=== PATIENT | male | born 1940 | race Caucasian/White ===

== ENCOUNTER 2024-09-12 10:28 | Inpatient (IN) ==
--- NOTE | 2024-09-12 10:46 | Emergency Department Note ---
Impression & Plan Hyperkalemia, Mucosal abnormality of duodenum, Abnormal CT scan, small bowel, GI bleeding, Hyperglycemia ED Provider Note NAME: VINI MENDOZA78Yodit JAMES AGE: 84 SEX: M : 1940 ARRIVES VIA: Walk-In INFORMANT: Patient, EMS report ED PROVIDER(S): Andrae Gou MD CHIEF COMPLAINT: GI bleeding, dizziness MEDICAL DECISION MAKING: Patient presents with the above. IV was established x 2 [id number] type and screen and show IV fluids ordered. Protonix bolus and drip ordered. IV fluids ordered. Initial [id number] did show a potassium greater than 6. Pending formal from the lab. Patient's blood work does show a white count of 17. Initial hemoglobin of 12.4. Platelet count is unremarkable. Patient's kidney function unremarkable prerenal azotemia noted which may be consistent with GI bleeding. Given the patient's elevated white count blood cultures and lactate were ordered along with empiric Zosyn in light of the patient's abdominal pain. Patient's formal potassium is 6.8. The patient did receive albuterol treatments insulin and D50 as well as calcium. The patient is on lisinopril which could be contributory to the patient's hyperkalemia. The patient denies taking any potassium supplements and no increase in potatoes or bananas. I did speak with Dr. Packer who did recommend conservative management care. The patient was also ordered additional IV fluids. COVID flu and RSV negative. The patient CT abdomen pelvis does show concern for duodenitis. I did speak with the on-call gastroenterology service Dr. Weber and the patient was seen by GI. I also did speak with the on-call medicine service. Fox Elliott PA-C and the patient was admitted to the medicine service. Repeat potassium of 5.1. Critical Care: I have personally spent 53 minutes of critical care time in direct management of this patient. This includes bedside care, interpretation of diagnostic studies, and testing, discussion with consultants, patient, and family members, and other require inpatient management activities. This 53 minutes is in excess of all separately billable procedures. Discussion w/ other healthcare providers: Dr. Barbosa nephrology Dr. Erickson gastroenterology Lurdes Elliott PA-C and Dr. Abdoulaye Zimmerman inpatient service Prior /Outside records reviewed: Review the patient's medication list no aspirin or other antiplatelets or anticoagulants. Patient is on Flomax albuterol atorvastatin lisinopril and dutasteride. Review of the patient's prior past medical history does show history of peptic ulcer disease. Review of the patient's med list does not show any evidence of a PPI. Differential diagnosis: Diverticulitis, AVM, coagulopathy, colitis, inflammatory bowel disease, malignancy, esophagitis, peptic ulcer disease, variceal bleed, gastritis, fissure, hemorrhoids, as well as other pathologies. Diagnostics, as interpreted by me: ECG: Normal sinus rhythm, rate of 80, wide QRS with right bundle branch block pattern, left axis deviation. No ST elevations. Cardiac monitoring: An order was placed for continuous cardiac monitoring. The monitor shows a rate of 82 with sinus rhythm. Patient was placed on pulse oximetry Medical decision rules: None Imaging studies: I informally interpreted the patient's CT abdomen pelvis does not show evidence of obvious obstruction with formal report to follow. HPI: Patient presents due to concern for GI bleeding. The patient reportedly began having some symptoms yesterday. Patient reportedly has had bright red blood as well as clots noted. Patient reports prior history of a stomach ulcer and believes he may be taking medication for it. Patient denies any chest pain or shortness of breath but does feel lightheaded/dizzy. No reported syncope. He does not take any reported antiplatelets or blood thinners. Patient does have a chronic indwelling Mora catheter. No reported abdominal pain. Patient reportedly had low blood pressure and elevated heart rate at the facility and upon presentation here does have low blood pressure although normal cardiac PAST MEDICAL HISTORY: See Below PAST SURGICAL HISTORY: See Below SOCIAL HISTORY: See Below HOME MEDICATIONS: See Below ALLERGIES: See Below VITALS: See Below PHYSICAL EXAMINATION: GENERAL: Mildly ill and pale in appearance. Wearing glasses. EYE EXAM: Normal conjunctiva. PERRL, no anisocoria and EOM's grossly intact w/o pain. OROPHARYNX: Moist mucus membranes, grossly normal dentition. NECK: Trachea midline, no stridor. Supple, no nuchal rigidity, no adenopathy, non-tender. No signs of meningismus. FROM of the neck with good chin to chest and neck extension. LUNGS: Clear to auscultation. Normal chest wall mechanics. HEART: NSR, no MRG. ABDOMEN: Abdomen soft, non-tender, no masses, no rebound or guarding. BACK: No CVA TTP. SKIN: No rashes and no bruising. : Mora catheter in place draining straw-colored urine. UPPER EXTREMITIES: Upper extremities are grossly normal. LOWER EXTREMITIES: Grossly normal, no edema. NEURO EXAM: A&O x3, cranial nerves II-XII grossly intact, normal speech, moves all 4 extremities. Past Med/Surg History Problem List (Updated 09/12/24 @ 15:57 by Andrae Guo MD) Hyperglycemia (Acute) Hyperkalemia (Acute) Abdominal pain GI bleeding (Acute) Abnormal CT scan, small bowel (Acute) Mucosal abnormality of duodenum (Acute) Rectal bleeding Hydronephrosis Urinary retention Medical History Stomach ulcer Diabetes Surgical History No pertinent past surgical history Family History Other No significant family history Social History Smoking Status: Never smoker Hx Alcohol Use: No Preferred Language: Georgian Current Living Situation Comment: [facility] Feels Safe at Home: Yes Allergies Allergies Allergy/AdvReac Type Severity Reaction Status Date / Time No Known Allergies Allergy Unverified 05/22/24 07:52 Home Meds Home Medications Medication Instructions Recorded Confirmed atorvastatin 40 mg tablet 40 mg PO HS 12/06/18 09/12/24 tamsulosin 0.4 mg capsule 0.4 mg PO HS 12/06/18 09/12/24 lisinopril 20 mg tablet 20 mg PO DAILY 09/12/24 09/12/24 Previous Rx's Medication Instructions Recorded dutasteride 0.5 mg capsule 0.5 mg PO DAILY #90 caps 07/08/23 (Avodart) Results & Data (ED) Vital Signs Vital Signs - 24 hr 09/12/24 10:34 09/12/24 10:49 09/12/24 10:54 Pulse Rate 86 Pulse Rate [Apical] 98 H Pulse Rate from SpO2 Sensor Pulse Rhythm [Apical] Pulse Strength [Apical] Respiratory Rate 19 18 Respiratory Effort / Characteristics Non-Labored Spontaneous Non-Labored Spontaneous Respiratory Depth Normal Normal Respiratory Pattern Regular Blood Pressure 71/41 L Blood Pressure [Right Arm] 77/55 L Blood Pressure Mean 51 Blood Pressure Mean [Right Arm] 62 Blood Pressure Position Sitting Blood Pressure Position [Right Arm] Pulse Oximetry 98 95 95 Oxygen Delivery Method Room Air Room Air Room Air Sepsis Recent Fever Within 48 Hours No Sepsis New/Unexplained Change in Mental Status No Sepsis Action Taken by Nursing No Action Required 09/12/24 10:55 09/12/24 11:00 09/12/24 11:06 Pulse Rate 85 Pulse Rate [Apical] 85 Pulse Rate from SpO2 Sensor 87 Pulse Rhythm [Apical] Pulse Strength [Apical] Respiratory Rate 18 23 Respiratory Effort / Characteristics Non-Labored Spontaneous Respiratory Depth Normal Respiratory Pattern Regular Blood Pressure 114/71 Blood Pressure [Right Arm] 80/56 L Blood Pressure Mean 82 Blood Pressure Mean [Right Arm] 64 Blood Pressure Position Blood Pressure Position [Right Arm] Pulse Oximetry 99 97 Oxygen Delivery Method Room Air Sepsis Recent Fever Within 48 Hours Sepsis New/Unexplained Change in Mental Status Sepsis Action Taken by Nursing 09/12/24 11:08 09/12/24 11:19 09/12/24 11:24 Pulse Rate 83 85 Pulse Rate [Apical] 88 Pulse Rate from SpO2 Sensor 86 Pulse Rhythm [Apical] Regular Pulse Strength [Apical] Normal Respiratory Rate 22 27 H Respiratory Effort / Characteristics Non-Labored Spontaneous Respiratory Depth Normal Respiratory Pattern Regular Blood Pressure Blood Pressure [Right Arm] 123/80 Blood Pressure Mean Blood Pressure Mean [Right Arm] 94 Blood Pressure Position Blood Pressure Position [Right Arm] Semi-fowlers Pulse Oximetry 97 98 Oxygen Delivery Method Room Air Sepsis Recent Fever Within 48 Hours Sepsis New/Unexplained Change in Mental Status Sepsis Action Taken by Nursing 09/12/24 11:30 09/12/24 11:36 09/12/24 11:50 Pulse Rate 85 Pulse Rate [Apical] Pulse Rate from SpO2 Sensor 84 Pulse Rhythm [Apical] Pulse Strength [Apical] Respiratory Rate 26 H Respiratory Effort / Characteristics Respiratory Depth Respiratory Pattern Blood Pressure 126/75 125/76 Blood Pressure [Right Arm] Blood Pressure Mean 91 91 Blood Pressure Mean [Right Arm] Blood Pressure Position Blood Pressure Position [Right Arm] Pulse Oximetry 99 Oxygen Delivery Method Sepsis Recent Fever Within 48 Hours Sepsis New/Unexplained Change in Mental Status Sepsis Action Taken by Nursing 09/12/24 12:00 09/12/24 12:00 09/12/24 12:00 Pulse Rate Pulse Rate [Apical] Pulse Rate from SpO2 Sensor Pulse Rhythm [Apical] Pulse Strength [Apical] Respiratory Rate Respiratory Effort / Characteristics Respiratory Depth Respiratory Pattern Blood Pressure 148/74 H 148/74 H 148/74 H Blood Pressure [Right Arm] Blood Pressure Mean 85 85 85 Blood Pressure Mean [Right Arm] Blood Pressure Position Blood Pressure Position [Right Arm] Pulse Oximetry Oxygen Delivery Method Sepsis Recent Fever Within 48 Hours Sepsis New/Unexplained Change in Mental Status Sepsis Action Taken by Nursing 09/12/24 12:14 09/12/24 12:15 09/12/24 12:24 Pulse Rate 88 96 H Pulse Rate [Apical] Pulse Rate from SpO2 Sensor 86 96 H Pulse Rhythm [Apical] Pulse Strength [Apical] Respiratory Rate 21 19 Respiratory Effort / Characteristics Respiratory Depth Respiratory Pattern Blood Pressure 135/78 Blood Pressure [Right Arm] Blood Pressure Mean 94 Blood Pressure Mean [Right Arm] Blood Pressure Position Blood Pressure Position [Right Arm] Pulse Oximetry 100 100 Oxygen Delivery Method Sepsis Recent Fever Within 48 Hours Sepsis New/Unexplained Change in Mental Status Sepsis Action Taken by Nursing 09/12/24 12:30 09/12/24 12:30 09/12/24 12:30 Pulse Rate 107 H Pulse Rate [Apical] Pulse Rate from SpO2 Sensor 108 H Pulse Rhythm [Apical] Pulse Strength [Apical] Respiratory Rate 25 H Respiratory Effort / Characteristics Respiratory Depth Respiratory Pattern Blood Pressure 133/77 133/77 Blood Pressure [Right Arm] Blood Pressure Mean 91 91 Blood Pressure Mean [Right Arm] Blood Pressure Position Blood Pressure Position [Right Arm] Pulse Oximetry 100 Oxygen Delivery Method Sepsis Recent Fever Within 48 Hours Sepsis New/Unexplained Change in Mental Status Sepsis Action Taken by Care Home Medications Current Medication List: was personally reviewed by me Laboratory Data Attestation: I reviewed the patient's lab results. 09/12/24 14:45 09/12/24 12:23 Lab Results 09/12/24 09/12/24 09/12/24 Range/Units 10:45 10:49 12:23 WBC 17.85 H (4.8-10.8) K/ul RBC 4.14 L (4.70-6.10) M/uL Hgb 12.4 L (14.0-18.0) g/dl POC Hgb 12.6 L (14.0-18.0) g/dl Hct 37.4 L (42.0-52.0) % POC Hct 37 L (42-52) % MCV 90.3 (80.0-100.0) fL MCH 30.0 (25.0-34.0) pg MCHC 33.2 (32.0-36.0) g/dL RDW Std Deviation 48.2 H (36.4-46.3) fL RDW Coeff of Star 14.6 H (11.5-14.5) % Plt Count 215 (130-400) K/uL MPV 11.8 (9.4-12.4) fL Immature Gran % (Auto) 0.5 % Neut % (Auto) 73.3 % Lymph % (Auto) 18.4 % [place] % (Auto) 6.8 % Eos % (Auto) 0.4 % Baso % (Auto) 0.6 % Neut # (Auto) 13.08 H (1.40-6.50) K/uL Lymph # (Auto) 3.28 (1.20-3.40) K/uL [place] # (Auto) 1.22 H (0.11-0.59) K/uL Eos # (Auto) 0.08 (0.00-0.50) K/uL Baso # (Auto) 0.10 (0.00-0.20) K/uL Immature Gran # (Auto) 0.09 (0.01-0.20) K/uL PT 11.3 (9.0-12.0) Seconds INR 1.0 (0.9-1.1) APTT 22 (21-31) Seconds PTT Ratio 0.8 POC Sodium 136 (135-144) mmol/L Sodium 135 L 136 (136-145) mmol/L POC Potassium 6.7 H* (3.3-5.0) mmol/L Potassium 6.8 H* 5.1 D (3.5-5.1) mmol/L POC Chloride 109 (101-112) mmol/L Chloride 108 H 109 H (98-107) mmol/L Carbon Dioxide 22 25 (21-32) mmol/L POC Total CO2 19 L (24-31) mmol/L Anion Gap 5 2 L (3-11) POC Anion Gap 15.0 L (16-25) mmol/L POC BUN 43 H (7-18) mg/dl BUN 52 H 46 H (6-23) mg/dl Creatinine 1.15 1.09 (0.6-1.4) mg/dl POC Creatinine 1.2 (0.6-1.3) mg/dl Est Cr Clr Drug Dosing 41.6 43.9 ml/min eGFR 61.98 66.10 BUN/Creatinine Ratio 45.2 H 42.2 H (10-20) Glucose 317 H* 370 H* (70-99(Fasting)) mg/dl POC Glucose (other) 302 H (70-99) mg/dl Estimat Average Glucose 192 mg/dl Hemoglobin A1c 8.3 H (4.5-5.6) % Lactate 2.2 H* (0.4-2.0) mmol/L Calcium 8.5 L 8.1 L (8.6-10.3) mg/dl POC Ioniz Calcium Nicole 1.15 (1.12-1.32) mmol/l Total Bilirubin 0.5 (0.2-1.0) mg/dl AST 21 (13-39) U/L ALT 20 (7-52) U/L Alkaline Phosphatase 82 (34-104) U/L Total Creatine Kinase 34 (30-223) U/L Total Protein 5.8 L (6.0-8.3) gm/dl Albumin 3.3 L (3.4-5.0) gm/dl Globulin 2.5 (2.5-4.0) gm/dl Albumin/Globulin Ratio 1.3 (0.9-2) Blood Type A Positive Antibody Screen NEGATIVE Administered Medications Pantoprazole Sodium 40 mg/ (Dextrose) 100 mls @ 20 mls/hr IV Q5H FATIMAH Stop: 10/12/24 10:59 Last Admin: 09/12/24 12:12 Dose: 8 mg/hr, 20 mls/hr Documented By: ANUSHKA Sodium Chloride (Nss) 1,000 mls @ 100 mls/hr IV .Q10H FATIMAH Stop: 09/13/24 13:14 Last Admin: 09/12/24 13:54 Dose: 100 mls/hr Documented By: ANUSHKA Discontinued Medications Albuterol (Albuterol 0.5% Neb Soln 2.5 Mg/0.5 Ml Vial) 10 mg NEB NOW STA Stop: 09/12/24 11:19 Last Admin: 09/12/24 11:55 Dose: 10 mg Documented By: ANUSHKA Dextrose (Dextrose 50% 50 Ml Syringe) 50 ml IV NOW STA Stop: 09/12/24 11:19 Last Admin: 09/12/24 11:52 Dose: 50 ml Documented By: ANUSHKA Pantoprazole Sodium 80 mg/ (Dextrose) 120 mls @ 480 mls/hr IV NOW ONE Stop: 09/12/24 10:53 Last Infusion: 09/12/24 12:45 Dose: Infused Documented By: Admin: 09/12/24 12:29 Dose: 480 mls/hr Documented By: ANUSHKA Sodium Chloride (Nss) 1,000 mls @ 999 mls/hr IV .Q1H1M ONE Stop: 09/12/24 11:39 Last Infusion: 09/12/24 12:32 Dose: Infused Documented By: Admin: 09/12/24 10:49 Dose: 999 mls/hr Documented By: SAWYER Calcium Gluconate () 1,000 mg in 60 mls @ 240 mls/hr IV NOW STA Stop: 09/12/24 11:32 Last Infusion: 09/12/24 12:27 Dose: Infused Documented By: Admin: 09/12/24 11:52 Dose: 240 mls/hr Documented By: ANUSHKA Insulin Human Regular 10 units (/ Syringe) 9.9 mls @ 3 mls/sec IV ONE STA Stop: 09/12/24 11:19 Last Admin: 09/12/24 11:52 Dose: 3 mls/sec Documented By: ANUSHKA Co-signed By: SIS Piperacillin Sod/Tazobactam Sod (Zosyn) 4.5 gm in 100 mls @ 200 mls/hr IV NOW ONE; Protocol Stop: 09/12/24 11:47 Last Infusion: 09/12/24 12:46 Dose: Infused Documented By: Admin: 09/12/24 12:24 Dose: 200 mls/hr Documented By: ANUSHKA Sodium Chloride (Nss) 1,000 mls @ 999 mls/hr IV .Q1H1M ONE Stop: 09/12/24 13:03 Last Infusion: 09/12/24 14:08 Dose: Infused Documented By: Admin: 09/12/24 12:32 Dose: 999 mls/hr Documented By: ANUSHKA Sodium Chloride (Nss) 500 mls @ 999 mls/hr IV .Q31M ONE Stop: 09/12/24 15:00 Last Admin: 09/12/24 14:45 Dose: 999 mls/hr Documented By: BRIAN Ioversol (Optiray 320 100ml) 94 ml IV ONCE ONE Stop: 09/12/24 11:44 Last Admin: 09/12/24 11:43 Dose: 94 ml Documented By: JL Pantoprazole Sodium (Pantoprazole Bolus/Drip) 1 each IV NOW STA Stop: 09/12/24 10:40 Last Admin: 09/12/24 14:14 Dose: Not Given Documented By: BRIAN Imaging Data Radiologist's Impression: Abdomen/Pelvis CT 09/12/24 11:20 CT abd pelvis IV con only CLINICAL HISTORY: ab pain, WBC 17 TECHNIQUE: Helical axial images of the abdomen and pelvis were obtained and displayed. Automated dose lowering techniques and/or adjustment according to patient size were utilized for this exam. This exam was performed with intravenous contrast. CT DOSE: 804.66 mGy.cm COMPARISON: Comparison is made to CT abdomen pelvis 06/22/2023 FINDINGS: Lower chest: Bibasilar atelectasis versus scarring is seen. Liver: Unremarkable. No focal lesions are seen. Gallbladder and biliary tree: No calcified gallstones. Normal caliber wall. No intra- or extrahepatic biliary ductal dilation. Pancreas: A 21 mm pancreatic cystic lesion is seen. Fatty replacement is noted. Spleen: Splenomegaly is seen with a few splenule is noted. Adrenals: Unremarkable. Kidneys and ureters: Numerous simple appearing renal cysts are seen, one with a calcification. Bladder: Mora catheter is seen. A bladder stone is seen. Reproductive organs: Unremarkable. Bowel: Diverticulosis is seen without diverticulitis. The appendix is normal. Duodenal wall thickening and fat stranding is seen. Lymph nodes Retroperitoneal: Unremarkable. Pelvic: Unremarkable. Mesenteric: Unremarkable. Peritoneum: Normal. Vessels: Atherosclerotic calcifications are seen. 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 Abdominal wall: Right fat-containing inguinal hernia. Bones: Degenerative changes in the visualized spine. IMPRESSION: 1. Fat stranding and wall thickening about the duodenum compatible for duodenitis. 2. Pancreatic body cystic lesion likely represents IPMN. 3. Numerous renal cysts are seen. 4. Diverticulosis without diverticulitis. ACT 112: Negative or not required by law. Electronically signed by: Davis Benton M.D. 09/12/2024 12:25 PM Discharge Plan Visit Data Chief Complaint: GI Bleed Stated Complaint: BLOODY STOOL ED Provider: Andrae Guo Discharge Problem: Hyperkalemia, Mucosal abnormality of duodenum, Abnormal CT scan, small bowel, GI bleeding, Hyperglycemia Patient Disposition: Admitted As Inpatient Discharge Instructions Interventions: ED Discharge Assessment Last Done: 09/12/24 13:53 Discharge Problem: GI bleeding Qualifiers: GI bleed type/associated pathology: unspecified gastrointestinal hemorrhage type Qualified Code(s): K92.2 - Gastrointestinal hemorrhage, unspecified
[2024-09-12] MEDS: SODIUM CHLORIDE 0.9% 1,000 ML IV ONE ×2 (10:49→12:32)
[2024-09-12 10:58] LABS: Basophils % (auto) 0.6 %; Eosinophils # (auto) 0.08 K/uL (0.00-0.50); Eosinophils % (auto) 0.4 %; Hematocrit (blood only) 37.4 % (42.0-52.0); Hemoglobin 12.4 g/dl (14.0-18.0); Immature Granulocytes # (auto) 0.09 K/uL (0.01-0.20); Immature Granulocytes % (auto) 0.5 %; Lymphocytes # (auto) 3.28 K/uL (1.20-3.40); Lymphocytes % (auto) 18.4 %; Mean Corpuscular Hgb Conc 33.2 g/dL (32.0-36.0); Mean Corpuscular Volume 90.3 fL (80.0-100.0); Mean Platelet Volume 11.8 fL (9.4-12.4); Monocytes # (auto) 1.22 K/uL (0.11-0.59); Monocytes % (auto) 6.8 %; Neutrophils # (auto) 13.08 K/uL (1.40-6.50); Neutrophils % (auto) 73.3 %; Platelet Count 215 K/uL (130-400); RDW Coefficient of Variation 14.6 % (11.5-14.5); RDW Standard Deviation 48.2 fL (36.4-46.3); Red Blood Count 4.14 M/uL (4.70-6.10); White Blood Count 17.85 K/ul (4.8-10.8)
[2024-09-12 11:02] LABS: iSTAT Creatinine 1.2 mg/dl (0.6-1.3); iSTAT Hemoglobin 12.6 g/dl (14.0-18.0); iSTAT Ionized Calcium 1.15 mmol/l (1.12-1.32); iSTAT Potassium 6.7 mmol/L (3.3-5.0)
[2024-09-12 11:20] LABS: Albumin Globulin Ratio 1.3 (0.9-2); Albumin Level 3.3 gm/dl (3.4-5.0); BUN Creatinine Ratio 45.2 (10-20); Bilirubin,Total 0.5 mg/dl (0.2-1.0); Calcium 8.5 mg/dl (8.6-10.3); Creatinine Clr Calc Pharmacy 41.6 ml/min; Globulin 2.5 gm/dl (2.5-4.0); Potassium 6.8 mmol/L (3.5-5.1); Total Protein 5.8 gm/dl (6.0-8.3)
[2024-09-12 11:29] LABS: Partial Thromboplastin Ratio 0.8; Partial Thromboplastin Time 22 Seconds (21-31); Prothrombin Time 11.3 Seconds (9.0-12.0)
[2024-09-12] MEDS: OPTIRAY 320 100ml IV ONE (11:43)
[2024-09-12] MEDS: CALCIUM GLUCONATE 1,000 MG/60 ML BAG IV STA (11:52)
[2024-09-12] MEDS: DEXTROSE 50% 50 ML SYRINGE IV STA (11:52)
[2024-09-12] MEDS: INSULIN HUMAN REGULAR PER UNIT 10 UNITS in SYRINGE 9.9 ML IV STA (11:52)
[2024-09-12] MEDS: ALBUTEROL 0.5% NEB SOLN 2.5 MG/0.5 ML VIAL NEB STA (11:55)
[2024-09-12] MEDS: PANTOprazole 40 MG in DEXTROSE 5% MINI-B 100 ML IV SCH (12:12)
[2024-09-12] MEDS: PIPERACILLIN/TAZOBACTAM 4.5 GM/100 ML BAG IV ONE (12:24)
--- NOTE | 2024-09-12 12:27 | CT Scan Report ---
CT abd pelvis IV con only CLINICAL HISTORY: ab pain, WBC 17 TECHNIQUE: Helical axial images of the abdomen and pelvis were obtained and displayed. Automated dose lowering techniques and/or adjustment according to patient size were utilized for this exam. This e xam was performed with intravenous contrast. CT DOSE: 804.66 mGy.cm COMPARISON: Comparison is made to CT abdomen pelvis 06/22/2023 FINDINGS: Lower chest: Bibasilar atelectasis versus scarring is seen. Liver: Unremarkable. No focal lesions are seen. Gallbladder and biliary tree: No calcified gallstones. Normal caliber wall. No intra- or extrahepatic biliary ductal dilation. Pancreas: A 21 mm pancreatic cystic lesion is seen. Fatty replacement is noted. Spleen: Splenomegaly is seen with a few splenule is noted. Adrenals: Unremarkable. Kidneys and ureters: Numerous simple appearing renal cysts are seen, one with a calcification. Bladder: Mora catheter is seen. A bladder stone is seen. Reproductive organs: Unremarkable. Bowel: Diverticulosis is seen without diverticulitis. The appendix is normal. Duodenal wall thickenin g and fat stranding is seen. Lymph nodes Retroperitoneal: Unremarkable. Pelvic: Unremarkable. Mesenteric: Unremarkable. Peritoneum: Normal. Vessels: Atherosclerotic calcifications are seen. 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 Abdominal wall: Right fat-containing inguinal hernia. Bones: Degenerative changes in the visualized spine. IMPRESSION: 1. Fat stranding and wall thickening about the duodenum compatible for duodenitis. 2. Pancreatic body cystic lesion likely represents IPMN. 3. Numerous renal cysts are seen. 4. Diverticulosis without diverticulitis. ACT 112: Negative or not required by law. Electronically signed by: Davis Benton M.D. 09/12/2024 12:25 PM
[2024-09-12] MEDS: PANTOprazole 80 MG in DEXTROSE 5% 100 ML IV ONE (12:29)
--- NOTE | 2024-09-12 13:02 | Gastrointestinal Consultation ---
Date of Consultation September 12, 2024 Assessment & Plan (1) Rectal bleeding: (2) Abnormal CT scan, small bowel: Plan -IV Protonix drip -Continue to monitor for overt GI bleeding -Continue to monitor H/H -NPO after midnight for EGD & colonoscopy on 09/13/24 Supervising Physician Co-Signing Physician Notes I saw and examined this patient with our nurse practitioner and agree with her assessment and plan. Clinical picture most consistent lower GI bleed in light of bright red blood per rectum mixed with clots. Hemodynamically stable at this time. Differential includes diverticular bleed and possibly ischemic colitis in light of abdominal pain occurring prior to bleeding episodes. Will also consider for ulcer disease in light of CT scan findings. Will plan for endoscopy and colonoscopy in AM. Continue resuscitation with fluids monitor hemoglobin hematocrit and continue IV PPI. History of Present Illness Reason for Consultation: GI bleeding History of Present Illness Patient is an 84 yo incarcerated male with PMH of HTN, prediabetes, and questionable stomach ulcer many years ago. Patient notes that he developed epigastric aching pain on 09/11/2024. He then developed an onset of bright red rectal bleeding. He notes that the last episode was this morning. He denies NSAID use. He denies abdominal surgery outside of a hernia repair. No known personal or family history of GI malignancy. He denies heartburn or reflux. In the ED, he was noted to have an H/H of 12.4/37.4. He had a CT scan of the abdomen/pelvis that questioned a duodenitis. There is a pancreatic IPMN noted. His K on admission was 6.8. This has been treated and improved to 5.1. He has never had an EGD or a colonoscopy per his reports. Allergies Allergy/AdvReac Type Severity Reaction Status Date / Time No Known Allergies Allergy Unverified 05/22/24 07:52 Home Medications Medication Instructions Recorded Confirmed Type atorvastatin 40 mg tablet 40 mg PO HS 12/06/18 09/12/24 History tamsulosin 0.4 mg capsule 0.4 mg PO HS 12/06/18 09/12/24 History dutasteride 0.5 mg capsule 0.5 mg PO DAILY #90 caps 07/08/23 09/12/24 Rx (Avodart) lisinopril 20 mg tablet 20 mg PO DAILY 09/12/24 09/12/24 History Patient History Medical History Stomach ulcer Diabetes Surgical History No pertinent past surgical history Family History Other No significant family history Social History (Updated 09/12/24 @ 13:20 by Lurdes Elliott PA-C) Smoking Status: Never smoker Hx Alcohol Use: No Preferred Language: Marshallese Current Living Situation Comment: [facility] Feels Safe at Home: Yes Review of Systems Constitutional: no fever and no chills Respiratory: no cough and no dyspnea Cardiovascular: no chest pain Gastrointestinal: + abdominal pain and + blood in stools Psychiatric: no problem reported Physical Exam Constitutional: well developed Respiratory: normal respiratory effort Cardiovascular: Rate/Rhythm: regular rate Gastrointestinal (Abdomen): Inspection/Auscultation: abdomen normal to inspection Psychiatric: Orientation: alert and oriented x 3 Results & Data Vital Signs (Past 12 Hours) Vital Signs Pulse Pulse Resp BP BP Pulse Ox O2 Del Method 09/12/24 12:45 110 H 23 99 09/12/24 12:30 133/77 09/12/24 12:30 133/77 09/12/24 12:30 107 H 25 H 100 09/12/24 12:24 96 H 19 100 09/12/24 12:15 135/78 09/12/24 12:14 88 21 100 09/12/24 12:00 148/74 H 09/12/24 12:00 148/74 H 09/12/24 12:00 148/74 H 09/12/24 11:50 125/76 09/12/24 11:36 85 26 H 99 09/12/24 11:30 126/75 09/12/24 11:24 85 27 H 98 09/12/24 11:19 88 22 123/80 97 Room Air 09/12/24 11:08 83 09/12/24 11:06 85 23 97 09/12/24 11:00 114/71 09/12/24 10:55 85 18 80/56 L 99 Room Air 09/12/24 10:54 95 Room Air 09/12/24 10:49 98 H 18 77/55 L 95 Room Air 09/12/24 10:34 86 19 71/41 L 98 Room Air PG Care Time/CCT Total # of Minutes Spent Total Time Spent with Patient: Total time spent is greater than 50% in coordination of care (as documented) at patient's floor/unit and/or counseling patient: Coding Level of Care Code 74421 INT INP/OBS CARE 3/75MIN Diagnoses Rectal bleeding K62.[address] scan, small bowel R93.3
[2024-09-12 13:07] LABS: BUN Creatinine Ratio 42.2 (10-20); Calcium 8.1 mg/dl (8.6-10.3); Creatinine Clr Calc Pharmacy 43.9 ml/min; Potassium 5.1 mmol/L (3.5-5.1)
--- NOTE | 2024-09-12 13:24 | History & Physical Report ---
Date of Service September 12, 2024 Assessment & Plan (1) GI bleeding: (2) Abdominal pain: (3) Hyperkalemia: (4) Hyperglycemia: Plan This is an 84-year-old male who has significant past medical history of HTN, HLD, urinary retention and bilateral hydronephrosis with chronic Mora catheter in place who presents to ED secondary to bright red blood per rectum as well as abdominal pain for the past few days. #Rectal Bleeding #Abdominal pain #Possible Duodenitis #SIRS Pt presented hypotensive/tachycardia responsive to IVF bolus x 2 during my assessment pt normotensive but mildly tachycardic He technically meets SIRS criteria given tachycardia/leukocytosis, but I suspect this is more volume related and not infectious related, no apparent infectious symptoms --CT abd/pelvis: Fat stranding and wall thickening about the duodenum compatible for duodenitis.2. Pancreatic body cystic lesion likely represents IPMN.3. Numerous renal cysts are seen.4. Diverticulosis without diverticulitis. PPI Bolus/Gtt clear liquid diet for today, NPO after midnight type and cross IVF 100cc/hr, trend lactate, H/H, Potassium GI consulted - likely EGD/Colonoscopy on 09/13/24 Blood consent was obtained from the patient (or patient delegate) as delegated by Dr. Stanford. Risks and benefits were explained. All questions were answered, and the patient was offered the opportunity to discuss with attending physician and declined. Blood and urine cultures pending - empiric rocephin started #Hyperkalemia Initial K was 6.7, ecg did show some peaked ts s/p Calc Gluc, Dextrose and IV insulin repeat was 5.1 ? if lab error as well Pt is on lisinopril so will hold this, monitor K closely #Hyperglycemia, suspected T2DM although pt denies Obtain A1C will give additional IV regular insulin, 6 units Lantus/novlog per protocol, consult glycemic pharmacy in setting of hyperglycemia and insulin naive #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 #Abnormal UA/Possible UTI follows [facility], exchanges on the of each month will exchange today and obtain urine specimen given leukocytosis to r/o infection Given SIRS criteria and abn UA despite sx or fever will empirically start on IV rocephin #DVT ppx: SCDS DNR/DNI PCP: [facility] Dispo: admit to PCU Pt was seen and examined in collaboration with Dr. Stanford, please see addendum I spent a total of 76 minutes reviewing notes, outpatient records, labs, medication, coordinating, documenting and providing care for this patient excluding time spent in the performance of separately billed services. History of Present Illness Chief Complaint: GIB/Abd pain x few days. Primary Care Provider: EMMY [facility] This is an 84-year-old male who has significant past medical history of HTN, HLD, urinary retention and bilateral hydronephrosis with chronic Mora catheter in place who presents to ED secondary to bright red blood per rectum as well as abdominal pain for the past few days. He reports a prior history of peptic ulcer disease many years ago. He is unsure if he has ever had prior rectal bleeding in the past. He reports of bilateral lower abdominal pain for the last 2 to 3 days. He reports the pain is constant. He tried Maalox with no relief. Nothing seems to make the pain worse. He also reports more frequent bowel movements and passing bright red blood and occasionally clots. He denies any epigastric discomfort. He denies any significant NSAID use. He denies taking any aspirin or blood thinners. He denies any recent illness, fever, chills, sweats, lightheadedness, dizzy, chest pain, shortness breath, nausea or vomiting. He is unsure if he ate breakfast this morning, but he does not think so. In ED patient was initially hypotensive and tachycardic. This improved after a 1 L fluid bolus. Lab work was notable for WBC of 17.8 5K, H&H 12.4 and 37.4, platelet count 215, potassium 6.7, BUN 46, creatinine 1.09, glucose 370, lactate 2.2. He was started on a PPI bolus and drip. He received a total of 2 L of IV fluid. He was appropriately resuscitated and during my evaluation his blood pressure was stable and he was mildly tachycardic. He does have a chronic Mora catheter in place. He reports getting this exchanged every month on the . Allergies Allergy/AdvReac Type Severity Reaction Status Date / Time No Known Allergies Allergy Unverified 05/22/24 07:52 Home Medications Medication Instructions Recorded Confirmed Type atorvastatin 40 mg tablet 40 mg PO HS 12/06/18 09/12/24 History tamsulosin 0.4 mg capsule 0.4 mg PO HS 12/06/18 09/12/24 History dutasteride 0.5 mg capsule 0.5 mg PO DAILY #90 caps 07/08/23 09/12/24 Rx (Avodart) lisinopril 20 mg tablet 20 mg PO DAILY 09/12/24 09/12/24 History Past Med/Surg History Problem List (Updated 09/12/24 @ 15:57 by Andrae Guo MD) Hyperglycemia (Acute) Hyperkalemia (Acute) Abdominal pain GI bleeding (Acute) Abnormal CT scan, small bowel (Acute) Mucosal abnormality of duodenum (Acute) Rectal bleeding Hydronephrosis Urinary retention Medical History Stomach ulcer Diabetes Surgical History No pertinent past surgical history Family History Other No significant family history Social History Smoking Status: Current every day smoker Tobacco Type: E-cigarettes / Vaping Do You Dip or Chew Tobacco: Yes; Hx Alcohol Use: No Hx Substance Use: No Preferred Language: Cymraes Double Needle Stitcher Required: No Beliefs That Will Affect Care: None Current Living Situation Comment: [facility] Feels Safe at Home: Yes Assistive Devices: Denture - Upper, Denture - Lower and Glasses Review of Systems Review of Systems: All systems reviewed & are unremarkable except as noted in HPI & below Physical Exam Physical Exam: Constitutional: WD/WN, vitals as above, NAD, sitting up in bed, pleasant, conversing easily Head: Normocephalic, Atraumatic Eyes: PERRL, conjunctivae normal, anicteric sclerae ENMT: external ear and nose normal, oropharynx normal Neck: trachea midline, no thyromegaly normal visual inspection Respiratory: normal respiratory effort, lungs clear to auscultation, no wheeze, rales, rhonchi. Normal insp/exp effort, no accessory muscle use Cardiovascular: tachycardic rate, reg rhythm, no murmur, no edema Vessels: no JVD or carotid bruit Chest: normal inspection of chest Abdomen: normal bowel sounds, soft, nontender, no hepatosplenomegaly Musculoskeletal: no cyanosis or clubbing, extremities motor strength 5/5 Skin: no rashes, warm and dry normal turgor Neurologic: PERRL, EOMI, accommodation nl, no face palsy, no dysarthria CN's II-XI intact bilaterally and moves all extremities Psychiatric: A+Ox3, euthymic affect Lymphatic: no cervical or axillary lymphadenopathy : deferred Results & Data Results & Data Vital Signs (Past 12 Hours) Vital Signs Pulse Pulse Resp BP BP Pulse Ox O2 Del Method 09/12/24 12:45 110 H 23 99 09/12/24 12:30 133/77 09/12/24 12:30 133/77 09/12/24 12:30 107 H 25 H 100 09/12/24 12:24 96 H 19 100 09/12/24 12:15 135/78 09/12/24 12:14 88 21 100 09/12/24 12:00 148/74 H 09/12/24 12:00 148/74 H 09/12/24 12:00 148/74 H 09/12/24 11:50 125/76 09/12/24 11:36 85 26 H 99 09/12/24 11:30 126/75 09/12/24 11:24 85 27 H 98 09/12/24 11:19 88 22 123/80 97 Room Air 09/12/24 11:08 83 09/12/24 11:06 85 23 97 09/12/24 11:00 114/71 09/12/24 10:55 85 18 80/56 L 99 Room Air 09/12/24 10:54 95 Room Air 09/12/24 10:49 98 H 18 77/55 L 95 Room Air 09/12/24 10:34 86 19 71/41 L 98 Room Air Laboratory Results I have independently reviewed and interpreted patient's admitting labs including CBC, CMP, lactate, ck, pt/inr, ptt, resp biofire Diagnostic Findings Abdomen/Pelvis CT 09/12/24 11:20 CT abd pelvis IV con only CLINICAL HISTORY: ab pain, WBC 17 TECHNIQUE: Helical axial images of the abdomen and pelvis were obtained and displayed. Automated dose lowering techniques and/or adjustment according to patient size were utilized for this exam. This exam was performed with intravenous contrast. CT DOSE: 804.66 mGy.cm COMPARISON: Comparison is made to CT abdomen pelvis 06/22/2023 FINDINGS: Lower chest: Bibasilar atelectasis versus scarring is seen. Liver: Unremarkable. No focal lesions are seen. Gallbladder and biliary tree: No calcified gallstones. Normal caliber wall. No intra- or extrahepatic biliary ductal dilation. Pancreas: A 21 mm pancreatic cystic lesion is seen. Fatty replacement is noted. Spleen: Splenomegaly is seen with a few splenule is noted. Adrenals: Unremarkable. Kidneys and ureters: Numerous simple appearing renal cysts are seen, one with a calcification. Bladder: Mora catheter is seen. A bladder stone is seen. Reproductive organs: Unremarkable. Bowel: Diverticulosis is seen without diverticulitis. The appendix is normal. Duodenal wall thickening and fat stranding is seen. Lymph nodes Retroperitoneal: Unremarkable. Pelvic: Unremarkable. Mesenteric: Unremarkable. Peritoneum: Normal. Vessels: Atherosclerotic calcifications are seen. 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 Abdominal wall: Right fat-containing inguinal hernia. Bones: Degenerative changes in the visualized spine. IMPRESSION: 1. Fat stranding and wall thickening about the duodenum compatible for duodenitis. 2. Pancreatic body cystic lesion likely represents IPMN. 3. Numerous renal cysts are seen. 4. Diverticulosis without diverticulitis. ACT 112: Negative or not required by law. Electronically signed by: Davis Benton M.D. 09/12/2024 12:25 PM Medications Administered Medication List Pantoprazole Sodium 40 mg/ (Dextrose) 100 mls @ 20 mls/hr IV Q5H [facility] Stop: 10/12/24 10:59 Last Admin: 09/12/24 12:12 Dose: 8 mg/hr, 20 mls/hr Documented By: ANUSHKA Discontinued Medications Albuterol (Albuterol 0.5% Neb Soln 2.5 Mg/0.5 Ml Vial) 10 mg NEB NOW STA Stop: 09/12/24 11:19 Last Admin: 09/12/24 11:55 Dose: 10 mg Documented By: ANUSHKA Dextrose (Dextrose 50% 50 Ml Syringe) 50 ml IV NOW STA Stop: 09/12/24 11:19 Last Admin: 09/12/24 11:52 Dose: 50 ml Documented By: ANUSHKA Pantoprazole Sodium 80 mg/ (Dextrose) 120 mls @ 480 mls/hr IV NOW ONE Stop: 09/12/24 10:53 Last Infusion: 09/12/24 12:45 Dose: Infused Documented By: Admin: 09/12/24 12:29 Dose: 480 mls/hr Documented By: ANUSHKA Sodium Chloride (Nss) 1,000 mls @ 999 mls/hr IV .Q1H1M ONE Stop: 09/12/24 11:39 Last Infusion: 09/12/24 12:32 Dose: Infused Documented By: Admin: 09/12/24 10:49 Dose: 999 mls/hr Documented By: SAWYER Calcium Gluconate () 1,000 mg in 60 mls @ 240 mls/hr IV NOW STA Stop: 09/12/24 11:32 Last Infusion: 09/12/24 12:27 Dose: Infused Documented By: Admin: 09/12/24 11:52 Dose: 240 mls/hr Documented By: ANUSHKA Insulin Human Regular 10 units (/ Syringe) 9.9 mls @ 3 mls/sec IV ONE STA Stop: 09/12/24 11:19 Last Admin: 09/12/24 11:52 Dose: 3 mls/sec Documented By: ANUSHKA Co-signed By: SIS Piperacillin Sod/Tazobactam Sod (Zosyn) 4.5 gm in 100 mls @ 200 mls/hr IV NOW ONE; Protocol Stop: 09/12/24 11:47 Last Infusion: 09/12/24 12:46 Dose: Infused Documented By: Admin: 09/12/24 12:24 Dose: 200 mls/hr Documented By: ANUSHKA Sodium Chloride (Nss) 1,000 mls @ 999 mls/hr IV .Q1H1M ONE Stop: 09/12/24 13:03 Last Admin: 09/12/24 12:32 Dose: 999 mls/hr Documented By: ANUSHKA Ioversol (Optiray 320 100ml) 94 ml IV ONCE ONE Stop: 09/12/24 11:44 Last Admin: 09/12/24 11:43 Dose: 94 ml Documented By: JL ECG Additional Comments: I have independently reviewed and interpreted patient's admitting EKG which revealed: NSR, 80 bpm, RBBB, peaked T noted COVID-19 Results Results COVID-19 Adm Lab Results: RBC 4.14 M/uL (4.70-6.10) L 09/12/24 WBC 17.85 K/ul (4.8-10.8) H 09/12/24 Hgb 9.9 g/dl (14.0-18.0) L 09/12/24 Hct 30.5 % (42.0-52.0) L 09/12/24 Plt Count 215 K/uL (130-400) 09/12/24 Neutrophils (%) (Auto) 73.3 % 09/12/24 Lymphocytes (%) (Auto) 18.4 % 09/12/24 Eosinophils # (Auto) 0.08 K/uL (0.00-0.50) 09/12/24 Immature Granulocyte % (Auto) 0.5 % 09/12/24 Neutrophils # (Auto) 13.08 K/uL (1.40-6.50) H 09/12/24 Lymphocytes # (Auto) 3.28 K/uL (1.20-3.40) 09/12/24 Eosinophils # (Auto) 0.08 K/uL (0.00-0.50) 09/12/24 Basophils # (Auto) 0.10 K/uL (0.00-0.20) 09/12/24 Immature Granulocyte # (Auto) 0.09 K/uL (0.01-0.20) 5 Na 138 mmol/L (136-145) 09/12/24 K 4.8 mmol/L (3.5-5.1) 09/12/24 Cl 111 mmol/L (98-107) H 09/12/24 CO2 22 mmol/L (21-32) 09/12/24 Anion Gap 5 (3-11) 09/12/24 BUN 43 mg/dl (6-23) H 09/12/24 Creatinine 1.05 mg/dl (0.6-1.4) 09/12/24 BUN/Creatinine Ratio 41.0 (10-20) H 09/12/24 Glucose Level 315 mg/dl (70-99(Fasting)) H* 09/12/24 Ca 7.4 mg/dl (8.6-10.3) L 09/12/24 Total Bilirubin 0.5 mg/dl (0.2-1.0) 09/12/24 AST/SGOT 21 U/L (13-39) 09/12/24 ALT/SGPT 20 U/L (7-52) 09/12/24 Alkaline Phosphatase 82 U/L (34-104) 09/12/24 Total Protein 5.8 gm/dl (6.0-8.3) L 09/12/24 Albumin 3.3 gm/dl (3.4-5.0) L 09/12/24 Globulin 2.5 gm/dl (2.5-4.0) 09/12/24 Albumin/Globulin Ratio 1.3 (0.9-2) 09/12/24 Total CK 34 U/L (30-223) 09/12/24 PTT 22 Seconds (21-31) 09/12/24 INR 1.0 (0.9-1.1) 09/12/24 COVID-19 PCR NEGATIVE (Negative) 09/12/24 Influenza Virus Type A (PCR) Negative (Neg) 09/12/24 Influenza Virus Type B (PCR) Negative (Neg) 09/12/24 Code Status & VTE Plan Code Status DNR/DNI VTE Prophylaxis Plan VTE Prophylaxis will be ordered: No Supervising Physician Co-Signing Physician Notes Attending Addendum: Case reviewed with the advanced practitioner. I have personally performed a history and physical examination on the patient. I have reviewed the advanced practitioner's documentation on the date of service referenced in note, and I agree with, and take responsibility for the plan of care. please refer to her notes for full details patient seen and examined, records reviewed by myself as well on exam, patient seen resting in bed, comfortable feels ok overall no chest pain, dyspnea, palpitations, dizziness no abdominal pain , nausea, recurrence of hematoma no other symptoms VS noted and reviewed oriented x3, not in distress, speaks in sentences with no effort nor accessory muscle use normal rate, regular rhythm, no murmurs clear breath sounds bilaterally non distended, soft, nontender no bipedal edema, erythema, warmth no neuro deficits all labs, imaging noted and reviewed ASSESSMENT AND PLAN> Hematochezia Hemoglobin 12-->10 Monitor hemoglobin every 6 hours GI consulted Possible EGD/colonoscopy tomorrow Hyperkalemia Unclear etiology From GI bleed? Lisinopril? Given calcium gluconate, dextrose in the ER Potassium improved from 6.7,to 4.8 other diagnoses and plan of care as per advanced practitioner's notes Yared Stanford MD
[2024-09-12] MEDS ORDERED: NovoLIN-R INSULIN PER UNIT CHARGE IV STA (13:35)
[2024-09-12] MEDS ORDERED: SODIUM CHLORIDE 0.9% 50 ML IV PRN (13:37)
[2024-09-12] MEDS ORDERED: PHARMACY GLYCEMIC MGMT CONSULT PRN (13:37)
[2024-09-12] MEDS ORDERED: GLUCOSE 10 TAB/TUBE PO PRN (13:37)
[2024-09-12] MEDS ORDERED: GLUCAGON FOR INJ 1 MG VIAL SQ PRN (13:37)
[2024-09-12] MEDS ORDERED: DEXTROSE 50% 50 ML SYRINGE IV PRN (13:37)
[2024-09-12] MEDS ORDERED: SODIUM CHLORIDE 0.9% 100 ML IV PRN (13:37)
[2024-09-12] MEDS ORDERED: GLUCOSE 40% GEL 15 GM TUBE PO PRN (13:37)
[2024-09-12] MEDS ORDERED: ONDANSETRON INJ 2 MG/ML 2 ML VIAL IV PRN (13:37)
[2024-09-12 13:44] LABS: Influenza A virus by PCR Negative (Neg); Influenza B virus by PCR Negative (Neg); RSV by PCR Negative (Neg); SARS CoV2 RNA(COVID-19) Ceph NEGATIVE (Negative)
[2024-09-12] MEDS: SODIUM CHLORIDE 0.9% 1,000 ML IV SCH (13:54)
[2024-09-12] MEDS: PANTOPRAZOLE BOLUS/DRIP IV STA (14:14)
[2024-09-12 14:19] LABS: Estimated Average Glucose 192 mg/dl; Hemoglobin A1C 8.3 % (4.5-5.6)
--- NOTE | 2024-09-12 14:35 | Pharmacy Report ---
Pharmacy Glycemic Short Note 2 - Date of Service September 12, 2024 - Glycemic Short BSG Results (Last 24 hours): 09/12/24 09/12/24 09/12/24 10:45 10:49 12:23 Glucose 317 H* 370 H* POC Glucose POC Glucose (other) 302 H 09/12/24 13:57 Glucose POC Glucose 255 H POC Glucose (other) OUTPATIENT ANTIDIABETIC REGIMEN: * N/A HbA1c: 8.3% (09/12/24) ASSESSMENT: * JOSEPH is an 84 year old male admitted on 09/12/24 with concern of lower GI bleed w/ rectal bleeding * Blood sugar greater than 300 mg/dL on presentation * Given IV insulin bolus + D50W bolus in ED due to hyperkalemia * Patient w/ known history of pre-diabetes, but now with HbA1c of 8.3% * Pharmacy consulted for glycemic management in light of hyperglycemia and being insulin naive * Blood sugar of 255 mg/dL at this time - will utilize SC basal/bolus regimen at this time * Colonoscopy scheduled for tomorrow morning - NPO PLAN FOR INPATIENT GLYCEMIC CONTROL: * Basal insulin * Lantus 0-5-10 units SC HS x 1 * Reassess in AM * Bolus insulin * NovoLog per scale ACHS or Q6hrs while NPO * Goal Range: Low 120 mg/dL - High 150 mg/dL * Correction Factor: 45 mg/dL/unit * Nutritional / Prandial insulin per carb ratio of 1 unit per 15 grams CHO consumed
[2024-09-12] MEDS: SODIUM CHLORIDE 0.9% 500 ML IV ONE (14:45)
[2024-09-12 14:59] LABS: Hematocrit (blood only) 32.2 % (42.0-52.0); Hemoglobin 10.5 g/dl (14.0-18.0)
[2024-09-12] MEDS: INSULIN ASPART PER UNIT CHARGE SC SCH (16:29)
[2024-09-12 16:46] LABS: Hematocrit (blood only) 30.5 % (42.0-52.0); Hemoglobin 9.9 g/dl (14.0-18.0)
[2024-09-12 17:11] LABS: Calcium 7.4 mg/dl (8.6-10.3); Creatinine Clr Calc Pharmacy 45.6 ml/min; Potassium 4.8 mmol/L (3.5-5.1)
[2024-09-12 18:28] LABS: Appearance Urine Turbid (Clear); Bacteria Urine Automated 3+ (None Seen); Bilirubin Urine Negative (Negative); Blood Urine 1+ (Negative); Cast Urine Automated >20 /lpf (0-2); Color Urine Yellow; Epithelial Cell Urine Auto 0-2 /hpf (0-2); Glucose Urine UA 2+ (Negative); Ketones Urine Negative (Negative); Leukocyte Esterase Urine 3+ (Negative); Nitrite Urine Negative (Negative); Protein Urine Negative (Negative); Urobilinogen Urine Negative (Negative); WBC Urine Automated >50 /hpf (0-5); White Blood Cell Casts Urine Present /lpf (None Prsent)
[2024-09-12] MEDS: NICOTINE 7 MG/24 HR TDSY TD SCH (18:39)
[2024-09-12] MEDS: cefTRIAXone SODIUM 2,000 MG/50 ML BAG IV SCH (19:35)
[2024-09-12] MEDS: LAVAGE SOLUTION 4000ML PO SCH (19:35)
[2024-09-12] MEDS: LANTUS PER UNIT CHARGE SC SCH (20:48)
[2024-09-12] MEDS: TAMSULOSIN HCL 0.4 MG CAP PO SCH (20:49)
[2024-09-12] MEDS ORDERED: LANTUS PER UNIT CHARGE SQ SCH (21:00)
[2024-09-12 23:31] LABS: Hematocrit (blood only) 27.1 % (42.0-52.0); Hemoglobin 8.9 g/dl (14.0-18.0)
[2024-09-13] MEDS: SODIUM CHLORIDE 0.9% 250 ML IV SCH (00:32)
[2024-09-13 06:58] LABS: Basophils # (auto) 0.08 K/uL (0.00-0.20); Basophils % (auto) 0.6 %; Eosinophils # (auto) 0.16 K/uL (0.00-0.50); Eosinophils % (auto) 1.1 %; Hematocrit (blood only) 26.1 % (42.0-52.0); Hemoglobin 8.6 g/dl (14.0-18.0); Immature Granulocytes # (auto) 0.06 K/uL (0.01-0.20); Immature Granulocytes % (auto) 0.4 %; Lymphocytes % (auto) 25.2 %; Mean Corpuscular Hemoglobin 29.9 pg (25.0-34.0); Mean Corpuscular Volume 90.6 fL (80.0-100.0); Monocytes # (auto) 1.28 K/uL (0.11-0.59); Neutrophils # (auto) 9.08 K/uL (1.40-6.50); Neutrophils % (auto) 63.7 %; Platelet Count 181 K/uL (130-400); RDW Coefficient of Variation 14.9 % (11.5-14.5); RDW Standard Deviation 49.2 fL (36.4-46.3); Red Blood Count 2.88 M/uL (4.70-6.10); White Blood Count 14.26 K/ul (4.8-10.8)
--- NOTE | 2024-09-13 07:29 | Electrocardiogram Report ---
Test Reason : Blood Pressure : */* mmHG Vent. Rate : 80 BPM Atrial Rate : 80 BPM P-R Int : 182 ms QRS Dur : 128 ms QT Int : 368 ms P-R-T Axes : 30 254 33 degrees QTcB Int : 424 ms Normal sinus rhythm with sinus arrhythmia Right bundle branch block Abnormal ECG When compared with ECG of 22-Jun-2023 13:57, Premature supraventricular complexes are no longer Present QT has shortened Confirmed by Malcom Keller ([id number]) on 09/13/2024 7:29:20 AM Referred By: Confirmed By: Malcom Keller
[2024-09-13 07:32] LABS: Albumin Globulin Ratio 1.4 (0.9-2); Albumin Level 2.5 gm/dl (3.4-5.0); BUN Creatinine Ratio 35.2 (10-20); Bilirubin,Total 0.5 mg/dl (0.2-1.0); Calcium 7.4 mg/dl (8.6-10.3); Creatinine Clr Calc Pharmacy 52.6 ml/min; Globulin 1.8 gm/dl (2.5-4.0); Magnesium 1.7 mg/dl (1.7-2.4); Potassium 4.7 mmol/L (3.5-5.1); Total Protein 4.3 gm/dl (6.0-8.3)
--- NOTE | 2024-09-13 09:28 | History & Physical Bridge Note ---
Date of Service September 13, 2024 History & Physical Bridge Note I have examined the patient, reviewed the History & Physical and in the interval since the performance of the History & Physical I have noted the following changes of clinical significance: no changes noted. Patient finished his prep. per patient and nursing, mostly just passing blood. no stool. patient denies any nausea, vomiting, abdominal pain, sob, chest pain. - will plan for EGD and colonoscopy for today. Supervising Physician Co-Signing Physician Notes I saw and examined this patient with our nurse practitioner and agree with her assessment and plan
[2024-09-13 11:32] LABS: Hematocrit (blood only) 27.5 % (42.0-52.0)
--- NOTE | 2024-09-13 13:03 | Anesthesiology Consultation ---
Date of Service September 13, 2024 Assessment & Plan Chart Review Chart Review: Acceptable Risk for Surgery and Patient NOT seen in Pre Admission Testing Consults Requested none ASA ASA3 Proposed Anesthesia Anesthesia Type: MAC Risk / Benefits Reviewed With: PT / POA / Parent / Guardian, Accepts Plan and Informed Consent Obtained History Surgery Operation Date: 09/13/24 16:30 Proposed Procedures p Colonoscopy EGD Dr. Dre Erickson MD Height/Weight Height: 5 ft 6 in Weight: 72.7 kg Allergies Allergy/AdvReac Type Severity Reaction Status Date / Time No Known Allergies Allergy Unverified 05/22/24 07:52 Medications Home Medications Medication Instructions Recorded Confirmed Last Taken atorvastatin 40 mg tablet 40 mg PO HS 12/06/18 09/12/24 Unknown tamsulosin 0.4 mg capsule 0.4 mg PO HS 12/06/18 09/12/24 Unknown dutasteride 0.5 mg capsule 0.5 mg PO DAILY #90 caps 07/08/23 09/12/24 Unknown (Avodart) lisinopril 20 mg tablet 20 mg PO DAILY 09/12/24 09/12/24 Unknown Active Medications Generic Name Dose Route Start Last Admin Trade Name Freq PRN Reason Stop Dose Admin Pantoprazole Sodium 40 mg/ 100 mls @ 20 mls/hr 09/12/24 11:00 09/13/24 07:57 Dextrose IV 10/12/24 10:59 8 mg/hr Q5H FATIMAH 20 mls/hr Administration 8 MG/HR Sodium Chloride 1,000 mls @ 100 mls/hr 09/12/24 13:15 09/13/24 04:52 Nss IV 09/13/24 13:14 100 mls/hr .Q10H FATIMAH Administration Ceftriaxone Sodium 2,000 mg in 50 mls @ 100 mls/hr 09/12/24 19:15 09/12/24 20:09 Rocephin IV 09/22/24 19:14 Infused Q24H FATIMAH Infusion Miscellaneous 1 each 09/13/24 08:59 09/13/24 07:58 Remove Nicoderm Patch N/A 10/13/24 08:58 1 each DAILY@0859 FATIMAH Administration Nicotine 1 patch 09/12/24 18:30 09/13/24 07:57 Nicotine 7 Mg/24 Hr Tdsy TD 10/12/24 18:29 1 patch QAM FATIMAH Administration Tamsulosin HCl 0.4 mg 09/12/24 21:00 09/12/24 20:49 Tamsulosin Hcl 0.4 Mg Cap PO 10/12/24 20:59 0.4 mg HS FATIMAH Administration Past Medical History Medical History Stomach ulcer Diabetes Exercise / Class Metabolic Activity II 4-5 Yardwork/Stairs/Walk up hill Past Family History Family History Other No significant family history Past Surgical History Surgical History No pertinent past surgical history Past Anesthesia History No Hx of Anesthesia Complications and No Family Hx of Anesthesia Complications History of PONV No Hx of PONV and No Hx of Motion Sickness Social History Smoking Status: Current every day smoker Do You Dip or Chew Tobacco: Yes Hx Alcohol Use: No Hx Substance Use: No Physical Exam Vital Signs Last Vital Signs Temp 36.3 C L 09/13/24 11:30 Pulse 82 09/13/24 11:30 Resp 19 09/13/24 11:30 BP 137/77 09/13/24 11:30 Pulse Ox 93 09/13/24 11:30 O2 Del Method Room Air 09/13/24 11:30 ENMT Mouth: + dentures (partial upper and lower) Thyromental Distance: > or= 3.5 Finger Breadths Mallampati Class: II Neck normal visual inspection Respiratory normal respiratory effort Auscultation: lungs clear to auscultation bilaterally Cardiovascular Rate/Rhythm: regular rate and regular rhythm Psychiatric Orientation: alert Testing Laboratory Results 09/13/24 10:57 09/13/24 06:24 PT 11.3 Seconds (9.0-12.0) 09/12/24 10:45 INR 1.0 (0.9-1.1) 09/12/24 10:45 APTT 22 Seconds (21-31) 09/12/24 10:45 Hemoglobin A1c 8.3 % (4.5-5.6) H 09/12/24 12:23 Urine Color Yellow 09/12/24 17:55 Urine Appearance Turbid (Clear) A 09/12/24 17:55 Urine pH 5.0 (4.5-7.5) 09/12/24 17:55 Ur Specific [place] 1.040 (1.000-1.030) H 09/12/24 17:55 Urine Protein Negative (Negative) 09/12/24 17:55 Urine Glucose (UA) 2+ (Negative) H 09/12/24 17:55 Urine Ketones Negative (Negative) 09/12/24 17:55 Urine Nitrite Negative (Negative) 09/12/24 17:55 Ur Leukocyte Esterase 3+ (Negative) H 09/12/24 17:55 Urine WBC (Auto) >50 /hpf (0-5) H 09/12/24 17:55 Urine RBC (Auto) 6-10 /hpf (0-2) H 09/12/24 17:55 U Hyaline Cast (Auto) >20 /lpf (0-2) H 09/12/24 17:55 U Epithel Cells (Auto) 0-2 /hpf (0-2) 09/12/24 17:55 Urine Bacteria (Auto) 3+ (None Seen) H 09/12/24 17:55 Blood Type A Positive 09/12/24 10:45 Antibody Screen NEGATIVE 09/12/24 10:45 09/12/24 12:23 Aerobic Blood Culture - Preliminary Blood No growth in Aerobic bottle after 24 hours. Anaerobic Blood Culture - Preliminary No growth in Anaerobic bottle after 24 hours. 09/13/24 09/13/24 09/13/24 11:15 07:49 05:42 POC Glucose 128 H 153 H 148 H 09/13/24 03:27 POC Glucose 123 H
--- NOTE | 2024-09-13 13:18 | Hospitalist Progress Note ---
Date of Service September 13, 2024 Assessment & Plan (1) GI bleeding: (2) Abdominal pain: (3) Hyperkalemia: (4) Hyperglycemia: Plan This is an 84-year-old incarcerated male who has significant past medical history of HTN, HLD, urinary retention and bilateral hydronephrosis with chronic Mora catheter in place who presents to ED secondary to bright red blood per rectum as well as abdominal pain for the past few days. Rectal Bleeding Acute Blood Loss Anemia Abdominal pain Possible Duodenitis Anal Mass Pt presented with rectal bleeding Hemoglobin dropped acutely from 12.4-9.0 CT abdomen pelvis noting possible duodenitis GI consulted, recommended or stated the following: -Status post EGD and colonoscopy on September 13, 2024 -Anal mass noted for which GI recommends colorectal follow-up as an outpatient -many diverticula noted -Noted blood in the sigmoid colon and in the descending colon, GI noting suspicious for diverticular bleed -Multiple biopsies taken from the gastric antrum and gastric body Continue to monitor H&H Will need colorectal follow-up after discharge Sepsis Complicated urinary tract infection Patient presented hypotensive and tachycardic, with chronic leukocytosis Lactate elevated with downtrend after fluid resuscitation UA suggestive of infection, urine culture currently growing E faecalis and Citrobacter IV Rocephin switched to cefepime and daptomycin Adjust antibiotics based on culture sensitivities once available Follow blood cultures, no growth to date Continue to monitor Hyperkalemia Initial K was 6.7 s/p Calcium Gluconate, Dextrose and IV insulin EKG with normal sinus rhythm with right bundle branch block currently within normal limits Continue to monitor DMII hemoglobin A1c of 8.3 Basal bolus per protocol Will need outpatient follow-up as this is a new diagnosis for for patient Continue to monitor 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 before his scopes. Denied any dizziness, shortness of breath, chest pain or palpitations Notes that he is still having bloody bowel movements Anxious about the procedures Review of Systems Review of Systems: All systems reviewed & are unremarkable except as noted in Subjective Physical Exam Physical Exam: General: Alert, oriented. No acute distress Neuro: No gross deficits HEENT: NC/AT CV: RRR Resp: Breath sounds clear bilaterally, no increased effort of breathing Abdomen: Soft, nontender Extremities: No edema in lower extremities bilaterally. Results & Data Results & Data Vital Signs (Past 12 Hours) Vital Signs Temp Pulse Pulse Resp BP BP Pulse Ox 09/13/24 12:58 36.4 C L 92 H 16 157/70 H 98 09/13/24 11:30 36.3 C L 82 19 137/77 93 09/13/24 08:00 88 09/13/24 07:51 36.4 C L 113 H 18 130/73 97 09/13/24 03:59 36.7 C 98 H 18 93/70 L 95 O2 Del Method 09/13/24 12:58 Room Air 09/13/24 11:30 Room Air 09/13/24 08:00 09/13/24 07:51 Room Air 09/13/24 03:59 Room Air Diagnostic Findings Abdomen/Pelvis CT 09/12/24 11:20 CT abd pelvis IV con only CLINICAL HISTORY: ab pain, WBC 17 TECHNIQUE: Helical axial images of the abdomen and pelvis were obtained and displayed. Automated dose lowering techniques and/or adjustment according to patient size were utilized for this exam. This exam was performed with intravenous contrast. CT DOSE: 804.66 mGy.cm COMPARISON: Comparison is made to CT abdomen pelvis 06/22/2023 FINDINGS: Lower chest: Bibasilar atelectasis versus scarring is seen. Liver: Unremarkable. No focal lesions are seen. Gallbladder and biliary tree: No calcified gallstones. Normal caliber wall. No intra- or extrahepatic biliary ductal dilation. Pancreas: A 21 mm pancreatic cystic lesion is seen. Fatty replacement is noted. Spleen: Splenomegaly is seen with a few splenule is noted. Adrenals: Unremarkable. Kidneys and ureters: Numerous simple appearing renal cysts are seen, one with a calcification. Bladder: Mora catheter is seen. A bladder stone is seen. Reproductive organs: Unremarkable. Bowel: Diverticulosis is seen without diverticulitis. The appendix is normal. Duodenal wall thickening and fat stranding is seen. Lymph nodes Retroperitoneal: Unremarkable. Pelvic: Unremarkable. Mesenteric: Unremarkable. Peritoneum: Normal. Vessels: Atherosclerotic calcifications are seen. 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 Abdominal wall: Right fat-containing inguinal hernia. Bones: Degenerative changes in the visualized spine. IMPRESSION: 1. Fat stranding and wall thickening about the duodenum compatible for duodenitis. 2. Pancreatic body cystic lesion likely represents IPMN. 3. Numerous renal cysts are seen. 4. Diverticulosis without diverticulitis. ACT 112: Negative or not required by law. Electronically signed by: Davis Benton M.D. 09/12/2024 12:25 PM (1) GI bleeding GI bleed type/associated pathology: unspecified gastrointestinal hemorrhage type Qualified Code(s): K92.2 - Gastrointestinal hemorrhage, unspecified
--- NOTE | 2024-09-13 14:03 | GI REPORT ---
[facility] Patient: VINI JAMES : 1940 Sex at : Male Age: 84 Years Procedure: Colonoscopy Date: 09/13/2024 Attending Physician: Andrew Erickson MD Referring MD: Miller Sanchez; Beth Jackson Md Indications: - Evaluation of unexplained GI bleeding presenting with Hematochezia Medications: - Monitored Anesthesia Care Complications: - No immediate complications. Procedure: - Prior to the procedure, a History and Physical was performed, and patient medications and allergies were reviewed. The patient's tolerance of previous anesthesia was also reviewed. The risks and benefits of the procedure and the sedation options and risks were discussed with the patient. All questions were answered, and informed consent was obtained. [Anticoagulant Agents] [Days Prior to Procedure]. [ASA Grade]. After reviewing the risks and benefits, the patient was deemed in satisfactory condition to undergo the procedure. - The adult colonoscope was introduced through the anus and advanced to the terminal ileum, with identification of the appendiceal orifice and ileocecal valve. - The colonoscopy was performed without difficulty. - The patient tolerated the procedure well. - The quality of the bowel preparation was [Prep Quality]. - [Anatomical Structures] photographed. Findings: - Many [Opening] diverticula were found in the sigmoid colon and ascending colon. - A 10 mm polypoid lesion was found at the anus. The lesion was polypoid. No bleeding was present. - The terminal ileum appeared normal. - Old red blood was found in the sigmoid colon and in the descending colon. No active bleeding. - No other significant abnormalities were identified in a careful examination of the remainder of the colon. Impression: - Diverticulosis in the sigmoid colon and in the ascending colon. Suspect resolving diverticular bleed. - The examination was otherwise normal. - Polypoid lesion at the anus just below dentate line - The examined portion of the ileum was normal. - Blood in the sigmoid colon and in the descending colon. - No specimens collected. Recommendation: - Resume previous diet. - Consult Colorectal surgery for anal lesion - Patient has a contact number available for emergencies. The signs and symptoms of potential delayed complications were discussed with the patient. Return to normal activities tomorrow. Written discharge instructions were provided to the patient. Procedure Code(s): - 83475, Colonoscopy, flexible; diagnostic, including collection of specimen(s) by brushing or washing, when performed (separate procedure) Diagnosis Code(s): - K92.1, Melena (includes Hematochezia) - D49.0, Neoplasm of unspecified behavior of digestive system - K92.2, Gastrointestinal hemorrhage, unspecified - K57.30, Diverticulosis of large intestine without perforation or abscess without bleeding CPT(R) - 2023 copyright [employer]. All Rights Reserved. The CPT codes, CCI edits and ICD codes generated are intended as suggestions and were generated based on input data. These codes are preliminary and upon steam fitter review may be revised to meet current compliance and payer requirements. The provider is responsible for the final determination of appropriate codes, and modifiers. Andrew Erickson MD This document has been electronically signed. Note Initiated:09/13/2024 Note Completed:09/13/2024 2:02 PM [email or web address]\Provation\Results\LIVE\[id number].pdf
--- NOTE | 2024-09-13 14:06 | GI REPORT ---
[facility] Patient: VINI JAMES : 1940 Sex at : Male Age: 84 Years Procedure: Upper GI endoscopy Date: 09/13/2024 Attending Physician: Andrew Erickson MD Referring MD: Miller Sanchez; Beth Jackson Md Indications: - Gastrointestinal bleeding of unknown origin Medications: - Monitored Anesthesia Care Complications: - No immediate complications. Procedure: - Prior to the procedure, a History and Physical was performed, and patient medications and allergies were reviewed. The patient's tolerance of previous anesthesia was also reviewed. The risks and benefits of the procedure and the sedation options and risks were discussed with the patient. All questions were answered, and informed consent was obtained. [Anticoagulant Agents] [Days Prior to Procedure]. [ASA Grade]. After reviewing the risks and benefits, the patient was deemed in satisfactory condition to undergo the procedure. - The EGD scope was introduced through the mouth and advanced to the second part of the duodenum. - The upper GI endoscopy was accomplished without difficulty. - The patient tolerated the procedure well. Findings: - The examined esophagus was normal. - Patchy moderate inflammation [Hemorrhage] characterized by erythema, congestion (edema) and erosions was found in the gastric antrum and in the gastric body. Multiple biopsies were obtained in the gastric antrum and in the gastric body with cold forceps for histology. Biopsies were taken with a cold forceps for histology. - Diffuse moderate mucosal changes characterized by erythema, congestion and erosion were found in the second portion of the duodenum and in the duodenal bulb. Biopsies were taken with a cold forceps for histology. Impression: - Normal esophagus. - Gastritis, characterized by erythema, congestion (edema) and erosions. Biopsied. - Multiple biopsies were obtained in the gastric antrum and in the gastric body. - Mucosal changes in the duodenum. Biopsied. Recommendation: - Resume previous diet. - Patient has a contact number available for emergencies. The signs and symptoms of potential delayed complications were discussed with the patient. Return to normal activities tomorrow. Written discharge instructions were provided to the patient. Procedure Code(s): - 62606, Esophagogastroduodenoscopy, flexible, transoral; with biopsy, single or multiple Diagnosis Code(s): - K92.2, Gastrointestinal hemorrhage, unspecified - K29.70, Gastritis, unspecified, without bleeding - K31.89, Other diseases of stomach and duodenum CPT(R) - 2023 copyright [employer]. All Rights Reserved. The CPT codes, CCI edits and ICD codes generated are intended as suggestions and were generated based on input data. These codes are preliminary and upon clinical coder review may be revised to meet current compliance and payer requirements. The provider is responsible for the final determination of appropriate codes, and modifiers. Andrew Erickson MD This document has been electronically signed. Note Initiated:09/13/2024 Note Completed:09/13/2024 2:05 PM [email or web address]\[email or web address]\Data\Provation\Results\LIVE\[id number]
[2024-09-13] MEDS ORDERED: Nursing to Pharmacy Communication SCH (14:30)
--- NOTE | 2024-09-13 14:30 | Anesthesiology Progress Note ---
Date of Service September 13, 2024 Anesthesia Post Procedure Vital Signs Vital Signs: Temp Pulse Pulse Resp BP BP Pulse Ox 09/13/24 14:14 91 H 20 117/76 98 09/13/24 13:59 91 H 18 91/52 L 98 09/13/24 12:58 36.4 C L 92 H 16 157/70 H 98 09/13/24 11:30 36.3 C L 82 19 137/77 93 09/13/24 08:00 88 09/13/24 07:51 36.4 C L 113 H 18 130/73 97 09/13/24 03:59 36.7 C 98 H 18 93/70 L 95 09/12/24 23:54 36.9 C 90 19 104/60 94 09/12/24 23:09 80 09/12/24 19:08 36.5 C 89 17 117/56 L 97 09/12/24 17:56 95 H 20 125/61 95 09/12/24 17:45 85 O2 Del Method 09/13/24 14:14 Room Air 09/13/24 13:59 Room Air 09/13/24 12:58 Room Air 09/13/24 11:30 Room Air 09/13/24 08:00 09/13/24 07:51 Room Air 09/13/24 03:59 Room Air 09/12/24 23:54 Room Air 09/12/24 23:09 09/12/24 19:08 Room Air 09/12/24 17:56 Room Air 09/12/24 17:45 Transfer of Care Handoff Completed per policy Notes Mental Status: alert / awake / arousable Patient Amnestic to Procedure: Yes Nausea / Vomiting: adequately controlled Pain: adequately controlled Airway Patency, RR, SpO2: stable & adequate BP & HR: stable & adequate Hydration State: stable & adequate Anesthetic Complications: no major complications apparent and Pt Satisfied with anesthetic care
[2024-09-13] MEDS: LIDOCAINE 2% 2 ML VIAL/AMP(20MG/ML) INFIL ONE (14:50)
[2024-09-13] MEDS: PROPOFOL IV EMULSION 10 MG/ML 20 ML VIAL IV ONE ×2 (14:50→14:51)
[2024-09-13] MEDS: FINASTERIDE 5 MG TAB PO SCH (17:08)
[2024-09-13] MEDS: INSULIN ASPART PER UNIT CHARGE SC SCH (17:09)
[2024-09-13] MEDS: DAPTOmycin 250 MG in SYRINGE 0 ML IV SCH (17:54)
[2024-09-13] MEDS: CEFEPIME 2000MG 2,000 MG/20 ML SYR IV SCH (17:54)
[2024-09-13] MEDS ORDERED: INSULIN ASPART PER UNIT CHARGE SC SCH ×2 (18:00→21:00)
[2024-09-13] MEDS: LANTUS PER UNIT CHARGE SC SCH (20:41)
[2024-09-13] MEDS: PANTOprazole 40 MG TAB PO SCH (20:46)
[2024-09-13] MEDS: MELATONIN 3 MG TAB PO PRN (23:14)
[2024-09-14 06:36] LABS: Basophils % (auto) 0.8 %; Eosinophils # (auto) 0.34 K/uL (0.00-0.50); Eosinophils % (auto) 2.6 %; Hematocrit (blood only) 24.5 % (42.0-52.0); Hemoglobin 7.9 g/dl (14.0-18.0); Immature Granulocytes # (auto) 0.07 K/uL (0.01-0.20); Immature Granulocytes % (auto) 0.5 %; Lymphocytes # (auto) 2.77 K/uL (1.20-3.40); Mean Corpuscular Hemoglobin 29.6 pg (25.0-34.0); Mean Corpuscular Hgb Conc 32.2 g/dL (32.0-36.0); Mean Corpuscular Volume 91.8 fL (80.0-100.0); Mean Platelet Volume 12.6 fL (9.4-12.4); Monocytes # (auto) 1.19 K/uL (0.11-0.59); Neutrophils # (auto) 8.73 K/uL (1.40-6.50); Neutrophils % (auto) 66.1 %; Platelet Count 179 K/uL (130-400); RDW Coefficient of Variation 15.1 % (11.5-14.5); RDW Standard Deviation 50.6 fL (36.4-46.3); Red Blood Count 2.67 M/uL (4.70-6.10)
[2024-09-14 06:55] LABS: Acanthocytes 1+; Albumin Globulin Ratio 1.4 (0.9-2); Albumin Level 2.7 gm/dl (3.4-5.0); BUN Creatinine Ratio 25.2 (10-20); Bilirubin,Total 0.5 mg/dl (0.2-1.0); Calcium 7.7 mg/dl (8.6-10.3); Creatinine Clr Calc Pharmacy 46.5 ml/min; Globulin 1.9 gm/dl (2.5-4.0); Magnesium 1.6 mg/dl (1.7-2.4); Phosphorus 2.2 mg/dl (2.5-4.9); Polychromasia 1+; Potassium 4.1 mmol/L (3.5-5.1); Total Protein 4.6 gm/dl (6.0-8.3)
--- NOTE | 2024-09-14 07:47 | Pharmacy Report ---
Pharmacy Glycemic Short Note 2 - Date of Service September 14, 2024 - Glycemic Short BSG Results (Last 24 hours): 09/13/24 09/13/24 09/13/24 07:49 11:15 16:18 Glucose POC Glucose 153 H 128 H 117 H 09/13/24 09/14/24 09/14/24 20:38 05:48 07:23 Glucose 238 H POC Glucose 134 H 209 H OUTPATIENT ANTIDIABETIC REGIMEN: * N/A HbA1c: 8.3% (09/12/24) ASSESSMENT: 09/14: * Ronaldo received 2 units of insulin yesterday, all bolus. BSGs were: 459-670-162-134 mg/dL. * Fasting BSG up to 209 mg/dL this AM. Will give basal 0.2 units/kg this AM. Tolerating a T2DM diet. * Underwent EGD + Colonoscopy last evening. Protonix has been changed to PO. * Plan to tighten both carb ratio and correction factor this AM given hyperglycemia. 09/12: * JOSEPH is an 84 year old male admitted on 09/12/24 with concern of lower GI bleed w/ rectal bleeding * Blood sugar greater than 300 mg/dL on presentation * Given IV insulin bolus + D50W bolus in ED due to hyperkalemia * Patient w/ known history of pre-diabetes, but now with HbA1c of 8.3% * Pharmacy consulted for glycemic management in light of hyperglycemia and being insulin naive * Blood sugar of 255 mg/dL at this time - will utilize SC basal/bolus regimen at this time * Colonoscopy scheduled for tomorrow morning - NPO PLAN FOR INPATIENT GLYCEMIC CONTROL: * Basal insulin * Lantus 15 units SC daily * Bolus insulin * NovoLog per scale ACHS or Q6hrs while NPO * Goal Range: Low 110 mg/dL - High 140 mg/dL * Correction Factor: 30 mg/dL/unit * Nutritional / Prandial insulin per carb ratio of 1 unit per 10 grams CHO consumed
[2024-09-14] MEDS: LANTUS PER UNIT CHARGE SC SCH (08:24)
[2024-09-14] MEDS: MAGNESIUM OXIDE 400 MG TAB PO SCH (08:25)
[2024-09-14] MEDS: MAGNESIUM SULFATE / D5W 1 GM/100 ML BAG IV SCH (08:25)
[2024-09-14] MEDS: POT PHOSPHATE MONOBASIC W/ SOD TAB PO SCH (08:25)
--- NOTE | 2024-09-14 11:40 | Hospitalist Progress Note ---
Date of Service September 14, 2024 Assessment & Plan (1) GI bleeding: (2) Abdominal pain: (3) Hyperkalemia: (4) Hyperglycemia: Plan This is an 84-year-old incarcerated male who has significant past medical history of HTN, HLD, urinary retention and bilateral hydronephrosis with chronic Mora catheter in place who presents to ED secondary to bright red blood per rectum as well as abdominal pain for the past few days. Rectal Bleeding Acute Blood Loss Anemia Abdominal pain Possible Duodenitis Anal Mass Pt presented with rectal bleeding Hemoglobin dropped acutely from 12.4-9.0 CT abdomen pelvis noting possible duodenitis GI consulted, recommended or stated the following: -Status post EGD and colonoscopy on September 13, 2024 -Anal mass noted for which GI recommends colorectal follow-up as an outpatient -many diverticula noted -Noted blood in the sigmoid colon and in the descending colon, GI noting suspicious for diverticular bleed -Multiple biopsies taken from the gastric antrum and gastric body Continue to monitor H&H- currently downtrending Will need colorectal follow-up after discharge Sepsis Complicated urinary tract infection Patient presented hypotensive and tachycardic, with chronic leukocytosis Lactate elevated with downtrend after fluid resuscitation UA suggestive of infection, urine culture currently growing E faecalis and Citrobacter IV Rocephin switched to cefepime and daptomycin Adjust antibiotics based on culture sensitivities once available Follow blood cultures, no growth to date Continue to monitor Hyperkalemia Initial K was 6.7 s/p Calcium Gluconate, Dextrose and IV insulin EKG with normal sinus rhythm with right bundle branch block currently within normal limits Continue to monitor DMII hemoglobin A1c of 8.3 Basal bolus per protocol Will need outpatient follow-up as this is a new diagnosis for for patient Continue to monitor 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 Abnormal UA/Possible UTI [place] [facility], exchanges on the of each month exchanged on admission IPMN Renal Cysts Noted on imaging Will need follow-up outpatient diet: DM2, safety tray DVT ppx: SCDS in setting of acute GI bleed dispo: Return to detention once medically stable Admission and Anticipated Discharge Date Admission Date: September 12, 2024 Subjective Patient was seen laying in bed Notes that he is still having bloody bowel movements though they seem improved and with darker blood Review of Systems Review of Systems: All systems reviewed & are unremarkable except as noted in Subjective Physical Exam Physical Exam: General: Alert, oriented. No acute distress Neuro: No gross deficits HEENT: NC/AT CV: RRR Resp: Breath sounds clear bilaterally, no increased effort of breathing Abdomen: Soft, nontender Extremities: No edema in lower extremities bilaterally. Results & Data Results & Data Vital Signs (Past 12 Hours) Vital Signs Temp Pulse Pulse Resp BP Pulse Ox O2 Del Method 09/14/24 08:00 103 H 09/14/24 07:47 36.8 C 111 H 19 139/72 95 Room Air 09/14/24 03:16 36.7 C 101 H 18 132/72 93 Room Air 09/13/24 23:57 81 Diagnostic Findings Abdomen/Pelvis CT 09/12/24 11:20 CT abd pelvis IV con only CLINICAL HISTORY: ab pain, WBC 17 TECHNIQUE: Helical axial images of the abdomen and pelvis were obtained and displayed. Automated dose lowering techniques and/or adjustment according to patient size were utilized for this exam. This exam was performed with intravenous contrast. CT DOSE: 804.66 mGy.cm COMPARISON: Comparison is made to CT abdomen pelvis 06/22/2023 FINDINGS: Lower chest: Bibasilar atelectasis versus scarring is seen. Liver: Unremarkable. No focal lesions are seen. Gallbladder and biliary tree: No calcified gallstones. Normal caliber wall. No intra- or extrahepatic biliary ductal dilation. Pancreas: A 21 mm pancreatic cystic lesion is seen. Fatty replacement is noted. Spleen: Splenomegaly is seen with a few splenule is noted. Adrenals: Unremarkable. Kidneys and ureters: Numerous simple appearing renal cysts are seen, one with a calcification. Bladder: Mora catheter is seen. A bladder stone is seen. Reproductive organs: Unremarkable. Bowel: Diverticulosis is seen without diverticulitis. The appendix is normal. Duodenal wall thickening and fat stranding is seen. Lymph nodes Retroperitoneal: Unremarkable. Pelvic: Unremarkable. Mesenteric: Unremarkable. Peritoneum: Normal. Vessels: Atherosclerotic calcifications are seen. 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 Abdominal wall: Right fat-containing inguinal hernia. Bones: Degenerative changes in the visualized spine. IMPRESSION: 1. Fat stranding and wall thickening about the duodenum compatible for duodenitis. 2. Pancreatic body cystic lesion likely represents IPMN. 3. Numerous renal cysts are seen. 4. Diverticulosis without diverticulitis. ACT 112: Negative or not required by law. Electronically signed by: Davis Benton M.D. 09/12/2024 12:25 PM (1) GI bleeding GI bleed type/associated pathology: unspecified gastrointestinal hemorrhage type Qualified Code(s): K92.2 - Gastrointestinal hemorrhage, unspecified
[2024-09-15 07:28] LABS: Basophils # (auto) 0.09 K/uL (0.00-0.20); Basophils % (auto) 0.6 %; Eosinophils # (auto) 0.37 K/uL (0.00-0.50); Eosinophils % (auto) 2.5 %; Hematocrit (blood only) 23.8 % (42.0-52.0); Hemoglobin 7.9 g/dl (14.0-18.0); Immature Granulocytes # (auto) 0.09 K/uL (0.01-0.20); Immature Granulocytes % (auto) 0.6 %; Lymphocytes # (auto) 3.09 K/uL (1.20-3.40); Lymphocytes % (auto) 20.7 %; Mean Corpuscular Hemoglobin 29.8 pg (25.0-34.0); Mean Corpuscular Hgb Conc 33.2 g/dL (32.0-36.0); Mean Corpuscular Volume 89.8 fL (80.0-100.0); Mean Platelet Volume 12.4 fL (9.4-12.4); Monocytes # (auto) 1.43 K/uL (0.11-0.59); Monocytes % (auto) 9.6 %; Neutrophils # (auto) 9.87 K/uL (1.40-6.50); Platelet Count 185 K/uL (130-400); RDW Coefficient of Variation 15.1 % (11.5-14.5); RDW Standard Deviation 48.4 fL (36.4-46.3); Red Blood Count 2.65 M/uL (4.70-6.10); White Blood Count 14.94 K/ul (4.8-10.8)
[2024-09-15 07:49] LABS: Acanthocytes 1+
[2024-09-15 08:04] LABS: Albumin Globulin Ratio 1.5 (0.9-2); Albumin Level 2.9 gm/dl (3.4-5.0); BUN Creatinine Ratio 22.8 (10-20); Bilirubin,Total 0.4 mg/dl (0.2-1.0); Calcium 7.6 mg/dl (8.6-10.3); Creatinine Clr Calc Pharmacy 47.4 ml/min; Magnesium 1.9 mg/dl (1.7-2.4); Potassium 3.5 mmol/L (3.5-5.1); Total Protein 4.9 gm/dl (6.0-8.3)
[2024-09-15] MEDS: LANTUS PER UNIT CHARGE SC SCH (08:36)
[2024-09-15] MEDS ORDERED: LANTUS PER UNIT CHARGE SC SCH (09:00)
--- NOTE | 2024-09-15 16:16 | Hospitalist Progress Note ---
Date of Service September 15, 2024 Assessment & Plan (1) GI bleeding: (2) Abdominal pain: (3) Hyperkalemia: (4) Hyperglycemia: Plan This is an 84-year-old incarcerated male who has significant past medical history of HTN, HLD, urinary retention and bilateral hydronephrosis with chronic Mora catheter in place who presents to ED secondary to bright red blood per rectum as well as abdominal pain for the past few days. Rectal Bleeding Acute Blood Loss Anemia Abdominal pain Possible Duodenitis Anal Mass Pt presented with rectal bleeding Hemoglobin dropped acutely from 12.4-9.0 CT abdomen pelvis noting possible duodenitis GI consulted, recommended or stated the following: -Status post EGD and colonoscopy on September 13, 2024 -Anal mass noted for which GI recommends colorectal follow-up as an outpatient -many diverticula noted -Noted blood in the sigmoid colon and in the descending colon, GI noting suspicious for diverticular bleed -Multiple biopsies taken from the gastric antrum and gastric body Continue to monitor H&H- currently downtrended but stable Will need colorectal follow-up after discharge Sepsis Complicated urinary tract infection Patient presented hypotensive and tachycardic, with chronic leukocytosis Lactate elevated with downtrend after fluid resuscitation UA suggestive of infection, urine culture currently growing E faecalis and Citrobacter IV Rocephin switched to cefepime and daptomycin Adjust antibiotics based on culture sensitivities once available Follow blood cultures, no growth to date Continue to monitor Hyperkalemia Initial K was 6.7 s/p Calcium Gluconate, Dextrose and IV insulin EKG with normal sinus rhythm with right bundle branch block currently within normal limits Continue to monitor DMII hemoglobin A1c of 8.3 Basal bolus per protocol Will need outpatient follow-up as this is a new diagnosis for for patient Continue to monitor 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 states he still having some bloody bowel movements though improved Review of Systems Review of Systems: All systems reviewed & are unremarkable except as noted in Subjective Physical Exam Physical Exam: General: Alert, oriented. No acute distress Neuro: No gross deficits HEENT: NC/AT CV: RRR Resp: Breath sounds clear bilaterally, no increased effort of breathing Abdomen: Soft, nontender Extremities: No edema in lower extremities bilaterally. Results & Data Results & Data Vital Signs (Past 12 Hours) Vital Signs Temp Pulse Pulse Resp BP Pulse Ox O2 Del Method 09/15/24 15:30 37.1 C 95 H 19 121/55 L 93 Room Air 09/15/24 15:12 92 H 09/15/24 14:39 106 H 09/15/24 10:54 37.2 C 94 H 18 142/74 H 93 Room Air 09/15/24 08:36 98 H 09/15/24 07:22 36.8 C 102 H 18 134/69 92 Room Air (1) GI bleeding GI bleed type/associated pathology: unspecified gastrointestinal hemorrhage type Qualified Code(s): K92.2 - Gastrointestinal hemorrhage, unspecified
[2024-09-16 07:03] LABS: Basophils # (auto) 0.07 K/uL (0.00-0.20); Basophils % (auto) 0.4 %; Eosinophils % (auto) 0.6 %; Hematocrit (blood only) 21.1 % (42.0-52.0); Immature Granulocytes # (auto) 0.09 K/uL (0.01-0.20); Immature Granulocytes % (auto) 0.6 %; Lymphocytes # (auto) 2.12 K/uL (1.20-3.40); Lymphocytes % (auto) 13.4 %; Mean Corpuscular Hgb Conc 33.2 g/dL (32.0-36.0); Mean Corpuscular Volume 90.6 fL (80.0-100.0); Mean Platelet Volume 12.2 fL (9.4-12.4); Monocytes # (auto) 1.75 K/uL (0.11-0.59); Monocytes % (auto) 11.1 %; Neutrophils # (auto) 11.65 K/uL (1.40-6.50); Neutrophils % (auto) 73.9 %; Platelet Count 170 K/uL (130-400); RDW Coefficient of Variation 15.4 % (11.5-14.5); RDW Standard Deviation 49.2 fL (36.4-46.3); Red Blood Count 2.33 M/uL (4.70-6.10); White Blood Count 15.78 K/ul (4.8-10.8)
[2024-09-16 07:22] LABS: Albumin Globulin Ratio 1.3 (0.9-2); Albumin Level 2.6 gm/dl (3.4-5.0); BUN Creatinine Ratio 23.5 (10-20); Bilirubin,Total 0.5 mg/dl (0.2-1.0); Calcium 7.3 mg/dl (8.6-10.3); Creatinine Clr Calc Pharmacy 48.8 ml/min; Phosphorus 3.5 mg/dl (2.5-4.9); Potassium 4.1 mmol/L (3.5-5.1); Total Protein 4.6 gm/dl (6.0-8.3)
[2024-09-16 07:27] LABS: Acanthocytes 1+; Polychromasia 1+
--- NOTE | 2024-09-16 08:21 | Gastroenterology Progress Note ---
Date of Service September 16, 2024 Assessment & Plan (1) Diverticular hemorrhage: Plan: Clinically I do not think he is having significant recurrent bleeding. No repeat intervention or imaging is needed at this time. He is hemodynamically stable. Will continue to monitor hemoglobin and hematocrit maintain hemoglobin over 7. If he has evidence of hemodynamic instability and progressive overt bleeding we could proceed with CT angiogram. Will follow. Admission and Anticipated Discharge Date Admission Date: September 12, 2024 Subjective Has had a few episodes of bright red blood per rectum generally after dinner since colonoscopy. Since then he has had no nocturnal or morning bowel movements. He denies shortness of breath chest pain or abdominal pain. Physical Exam Physical Exam: No acute distress Respiratory rate regular Cardiac rhythm regular Abdomen soft nontender Results & Data Results & Data Vital Signs (Past 12 Hours) Vital Signs Temp Pulse Pulse Resp BP Pulse Ox O2 Del Method 09/16/24 07:24 37.3 C 102 H 95/49 L 95 Room Air 09/16/24 07:10 92 H 09/16/24 02:53 37.1 C 101 H 20 120/87 94 Room Air 09/15/24 23:30 37.1 C 97 H 20 99/63 L 92 Room Air 09/15/24 21:40 102 H Laboratory Results Laboratory Results - last 48 hr 09/14/24 09/14/24 09/14/24 11:37 16:12 20:27 WBC RBC Hgb Hct MCV MCH MCHC RDW Std Deviation RDW Coeff of Star Plt Count MPV Immature Gran % (Auto) Neut % (Auto) Lymph % (Auto) Meriwether % (Auto) Eos % (Auto) Baso % (Auto) Neut # (Auto) Lymph # (Auto) Meriwether # (Auto) Eos # (Auto) Baso # (Auto) Immature Gran # (Auto) Polychromasia Acanthocytes (Spur) Sodium Potassium Chloride Carbon Dioxide Anion Gap BUN Creatinine Est Cr Clr Drug Dosing eGFR BUN/Creatinine Ratio Glucose POC Glucose 99 71 131 H Calcium Phosphorus Magnesium Total Bilirubin AST ALT Alkaline Phosphatase Total Protein Albumin Globulin Albumin/Globulin Ratio 09/15/24 09/15/24 09/15/24 06:51 07:22 10:54 WBC 14.94 H RBC 2.65 L Hgb 7.9 L Hct 23.8 L MCV 89.8 MCH 29.8 MCHC 33.2 RDW Std Deviation 48.4 H RDW Coeff of Star 15.1 H Plt Count 185 MPV 12.4 Immature Gran % (Auto) 0.6 Neut % (Auto) 66.0 Lymph % (Auto) 20.7 Meriwether % (Auto) 9.6 Eos % (Auto) 2.5 Baso % (Auto) 0.6 Neut # (Auto) 9.87 H Lymph # (Auto) 3.09 Meriwether # (Auto) 1.43 H Eos # (Auto) 0.37 Baso # (Auto) 0.09 Immature Gran # (Auto) 0.09 Polychromasia Acanthocytes (Spur) 1+ Sodium 140 Potassium 3.5 Chloride 109 H Carbon Dioxide 25 Anion Gap 6 BUN 23 Creatinine 1.01 Est Cr Clr Drug Dosing 47.4 eGFR 72.43 BUN/Creatinine Ratio 22.8 H Glucose 145 H POC Glucose 155 H 106 H Calcium 7.6 L Phosphorus 4.0 D Magnesium 1.9 Total Bilirubin 0.4 AST 22 ALT 19 Alkaline Phosphatase 74 Total Protein 4.9 L Albumin 2.9 L Globulin 2.0 L Albumin/Globulin Ratio 1.5 09/15/24 09/15/24 09/16/24 16:13 20:06 06:36 WBC 15.78 H RBC 2.33 L Hgb 7.0 L Hct 21.1 L MCV 90.6 MCH 30.0 MCHC 33.2 RDW Std Deviation 49.2 H RDW Coeff of Star 15.4 H Plt Count 170 MPV 12.2 Immature Gran % (Auto) 0.6 Neut % (Auto) 73.9 Lymph % (Auto) 13.4 Meriwether % (Auto) 11.1 Eos % (Auto) 0.6 Baso % (Auto) 0.4 Neut # (Auto) 11.65 H Lymph # (Auto) 2.12 Meriwether # (Auto) 1.75 H Eos # (Auto) 0.10 Baso # (Auto) 0.07 Immature Gran # (Auto) 0.09 Polychromasia 1+ Acanthocytes (Spur) 1+ Sodium 140 Potassium 4.1 Chloride 109 H Carbon Dioxide 26 Anion Gap 5 BUN 23 Creatinine 0.98 Est Cr Clr Drug Dosing 48.8 eGFR 75.10 BUN/Creatinine Ratio 23.5 H Glucose 152 H POC Glucose 138 H 157 H Calcium 7.3 L Phosphorus 3.5 Magnesium 2.0 Total Bilirubin 0.5 AST 17 ALT 16 Alkaline Phosphatase 64 Total Protein 4.6 L Albumin 2.6 L Globulin 2.0 L Albumin/Globulin Ratio 1.3 09/16/24 07:23 WBC RBC Hgb Hct MCV MCH MCHC RDW Std Deviation RDW Coeff of Star Plt Count MPV Immature Gran % (Auto) Neut % (Auto) Lymph % (Auto) Meriwether % (Auto) Eos % (Auto) Baso % (Auto) Neut # (Auto) Lymph # (Auto) Mer[place]ether # (Auto) Eos # (Auto) Baso # (Auto) Immature Gran # (Auto) Polychromasia Acanthocytes (Spur) Sodium Potassium Chloride Carbon Dioxide Anion Gap BUN Creatinine Est Cr Clr Drug Dosing eGFR BUN/Creatinine Ratio Glucose POC Glucose 161 H Calcium Phosphorus Magnesium Total Bilirubin AST ALT Alkaline Phosphatase Total Protein Albumin Globulin Albumin/Globulin Ratio PG Care Time/CCT Total # of Minutes Spent Total Time Spent with Patient: Total time spent is greater than 50% in coordination of care (as documented) at patient's floor/unit and/or counseling patient: Coding Level of Care Code 71034 SUB INP/OBS CARE 3/50MIN Diagnoses Diverticular hemorrhage K57.31
--- NOTE | 2024-09-16 12:01 | Hospitalist Progress Note ---
Date of Service September 16, 2024 Assessment & Plan (1) GI bleeding: (2) Abdominal pain: (3) Hyperkalemia: (4) Hyperglycemia: Plan This is an 84-year-old incarcerated male who has significant past medical history of HTN, HLD, urinary retention and bilateral hydronephrosis with chronic Mora catheter in place who presents to ED secondary to bright red blood per rectum as well as abdominal pain for the past few days. Rectal Bleeding Acute Blood Loss Anemia Abdominal pain Possible Duodenitis Anal Mass Pt presented with rectal bleeding Hemoglobin dropped acutely from 12.4-9.[address] abdomen pelvis noting possible duodenitis GI consulted, recommended or stated the following: -Status post EGD and colonoscopy on September 13, 2024 -Anal mass noted for which GI recommends colorectal follow-up as an outpatient -many diverticula noted -Noted blood in the sigmoid colon and in the descending colon, GI noting suspicious for diverticular bleed -Multiple biopsies taken from the gastric antrum and gastric body Continue to monitor H&H- currently downtrended but stable Will need colorectal follow-up after discharge 09/16/24- Patient with drop of hemoglobin from 7.0 this morning to 5 range on repeat. Patient hypotensive and tachycardic. given a fluid bolus and ordered transfused [address] angio of the abdomen ordered per recommendations of GI and Senior Statistician was consulted for transfer. Patient was transferred to the ICU for further evaluation and management. Sepsis Complicated urinary tract infection Patient presented hypotensive and tachycardic, with chronic leukocytosis Lactate elevated with downtrend after fluid resuscitation UA suggestive of infection, urine culture grew E faecalis and Citrobacter IV Rocephin switched to cefepime and daptomycin Adjust antibiotics based on culture sensitivities once available Follow blood cultures, no growth to date Continue to monitor 09/16/24- switched to Unasyn in the ICU Hyperkalemia Initial K was 6.7 s/p Calcium Gluconate, Dextrose and IV insulin EKG with normal sinus rhythm with right bundle branch block currently within normal limits Continue to monitor DMII hemoglobin A1c of 8.3 Basal bolus per protocol Will need outpatient follow-up as this is a new diagnosis for for patient Continue to monitor 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 stated that he felt weak. Noted that he only had 1 bowel movement overnight that was bloody otherwise denies acute bleeding Later notified by nursing that patient's heart rate was elevated with low blood pressure, hemoglobin this morning 7.0. Stat H&H ordered noted an acute drop to 5. Case discussed with GI and commodities manager who agreed to accept to the ICU Review of Systems Review of Systems: All systems reviewed & are unremarkable except as noted in Subjective Physical Exam Physical Exam: General: Alert, oriented. Neuro: No gross deficits HEENT: NC/AT, weak CV: RRR Resp: Breath sounds clear bilaterally, no increased effort of breathing Abdomen: Soft, nontender Extremities: No edema in lower extremities bilaterally. Results & Data Results & Data Vital Signs (Past 12 Hours) Vital Signs Temp Pulse Pulse Resp BP Pulse Ox O2 Del Method 09/16/24 11:10 36.8 C 104 H 19 98/52 L 94 Room Air 09/16/24 07:24 37.3 C 102 H 95/49 L 95 Room Air 09/16/24 07:10 92 H 09/16/24 02:53 37.1 C 101 H 20 120/87 94 Room Air (1) GI bleeding GI bleed type/associated pathology: unspecified gastrointestinal hemorrhage type Qualified Code(s): K92.2 - Gastrointestinal hemorrhage, unspecified
[2024-09-16] MEDS: SODIUM CHLORIDE 0.9% 500 ML IV ONE (12:16)
[2024-09-16 13:19] LABS: Hematocrit (blood only) 17.2 % (42.0-52.0); Hemoglobin 5.6 g/dl (14.0-18.0)
[2024-09-16] MEDS ORDERED: SODIUM CHLORIDE 0.9% 100 ML IV PRN ×2 (13:25→23:12)
[2024-09-16] MEDS ORDERED: SODIUM CHLORIDE 0.9% 50 ML IV PRN ×2 (13:25→23:12)
--- NOTE | 2024-09-16 15:08 | Critical Care Consultation ---
Date of Consultation September 16, 2024 Assessment & Plan (1) GI bleeding: Plan Impression: 84-year-old male admitted 4 days ago with lower GI bleed felt to be diverticular now with acute drop in hemoglobin and hematocrit with tachycardia. He is currently under resuscitated. Recommendations: 1. Neurologic no current issues. 2. Cardiovascular: Likely early hemorrhagic/hypovolemic shock. Continue crystalloid resuscitation. He is to receive 2 units of packed cells. Hopefully his tachycardia will resolve with pentecostal of effective circulating volume. 3. GI: Probable diverticular bleed. He is pending CT angiogram. Continue hemoglobin and hematocrit every 4 hours. Doubt nuclear medicine study would offer much at this point in time. If active bleeding is identified or the patient fails to respond, the patient may require more urgent endoscopy. Will consult general surgery given the severity of his bleed. If he is not a surgical candidate, may require transfer to a tertiary facility for interventional radiology embolization. N.p.o. for now. Maintain 2 IVs 18-gauge or greater if possible. Serial hemoglobin and hematocrit 4. Heme-onc: Acute blood loss anemia. Continue transfusion and try and maintain a hemoglobin of around 8. Will correct calcium. Check fibrinogen as well as coagulation panel. 5. Renal: ICU electrolyte replacement protocol. 6. ID: Patient is febrile. Suspect diverticulitis. White count elevated. Will place on unasyn for now. Unclear indication for cefepime but the patient does not have Pseudomonas or pneumonia. He needs anaerobic coverage. 7. Endocrine: Glycemic control per protocol. 8. Pulmonary: No current issues. Continue to follow clinically. Patient is critically ill at this point in time with significant possibility of clinical decline. Total of 45 minutes in critical care time was spent evalua tion management coordination of care for this patient History of Present Illness Attending Physician: Beth Jackson MD History of Present Illness Asked by hospitalist to assist in evaluation management this patient with lower GI bleed. History is obtained from discussion with the patient as well as review of the electronic medical record. Patient is an 84-year-old incarcerated male who presented to the hospital 09/12/2024 with abdominal pain and bright red blood per rectum. He was seen by GI and underwent colonoscopy and EGD 09/13/2024 which revealed multiple diverticula within the sigmoid and ascending colon but no actively bleeding lesions. He was noted to have an acute drop in his hemoglobin today from 7.9 down to 7 with repeat dropping down to 5.6. He is tachycardic but maintaining a normal blood pressure. He was administered 500 cc of normal saline and transferred to the ICU. 2 units of packed cells been ordered. GI has requested a CT angiogram of the pelvis to localize bleeding with which has not yet been performed. The patient states he is not had a recent bowel movement. He is having minimal left lower quadrant abdominal pain. He believes he had diverticular disease in the past and had some polyps removed with a colonoscopy. He is borderline febrile. He is not experiencing any nausea or vomiting. No chest pain or palpitations. No syncope or presyncope. He currently has 2 20-gauge peripheral IVs. Allergies Allergy/AdvReac Type Severity Reaction Status Date / Time No Known Allergies Allergy Unverified 05/22/24 07:52 Home Medications Medication Instructions Recorded Confirmed Type atorvastatin 40 mg tablet 40 mg PO HS 12/06/18 09/12/24 History tamsulosin 0.4 mg capsule 0.4 mg PO HS 12/06/18 09/12/24 History dutasteride 0.5 mg capsule 0.5 mg PO DAILY #90 caps 07/08/23 09/12/24 Rx (Avodart) lisinopril 20 mg tablet 20 mg PO DAILY 09/12/24 09/12/24 History Patient History Medical History Stomach ulcer Diabetes Surgical History No pertinent past surgical history Family History Other No significant family history Social History Smoking Status: Current every day smoker Tobacco Type: E-cigarettes / Vaping Do You Dip or Chew Tobacco: Yes; Hx Alcohol Use: No Hx Substance Use: No Preferred Language: Yemeni Communication Ability: Unable Business Ethics Professor Required: No Beliefs That Will Affect Care: None Current Living Situation Comment: [facility] Feels Safe at Home: Yes Assistive Devices: None Review of Systems Review of Systems: Please refer to hospitalist notes for additional details Physical Exam Constitutional: WD/WN, vitals as above Neck: trachea midline, no thyromegaly Respiratory: normal respiratory effort, lungs clear to auscultation Cardiovascular: Rate/Rhythm: + tachycardic Heart Sounds: normal S1 and normal S2; no murmur Extremities: + edema Gastrointestinal (Abdomen): Inspection/Auscultation: abdomen normal to inspection and normal bowel sounds Percussion/Palpation: + abdomen tender; no guarding and abdomen not rigid Minimally tender to palpation left lower quadrant Musculoskeletal: Extremities: extremities normal to inspection Skin: no rashes, warm and dry Neurologic: Nonfocal exam Lymphatic: no cervical lymphadenopathy Results & Data Results & Data Vital Signs (Past 12 Hours) Vital Signs Temp Pulse Pulse Resp BP BP BP 09/16/24 14:57 37.7 C H 110 H 24 100/59 L 09/16/24 14:27 102 H 09/16/24 14:18 103 H 25 H 122/52 L 09/16/24 14:04 109 H 21 118/59 L 09/16/24 13:47 37.6 C H 110 H 18 123/59 L 09/16/24 13:30 113/48 L 09/16/24 13:00 103 H 09/16/24 11:10 36.8 C 104 H 19 98/52 L 09/16/24 07:24 37.3 C 102 H 95/49 L 09/16/24 07:10 92 H Pulse Ox O2 Del Method 09/16/24 14:57 95 09/16/24 14:27 09/16/24 14:18 93 Room Air 09/16/24 14:04 92 Room Air 09/16/24 13:47 94 Room Air 09/16/24 13:30 09/16/24 13:00 09/16/24 11:10 94 Room Air 09/16/24 07:24 95 Room Air 09/16/24 07:10 Critical Care Results & Data Vital Signs (Past 12 Hours) Vital Signs Temp Pulse Pulse Resp BP BP BP 09/16/24 14:57 37.7 C H 110 H 24 100/59 L 09/16/24 14:27 102 H 09/16/24 14:18 103 H 25 H 122/52 L 09/16/24 14:04 109 H 21 118/59 L 09/16/24 13:47 37.6 C H 110 H 18 123/59 L 09/16/24 13:30 113/48 L 09/16/24 13:00 103 H 09/16/24 11:10 36.8 C 104 H 19 98/52 L 09/16/24 07:24 37.3 C 102 H 95/49 L 09/16/24 07:10 92 H Pulse Ox O2 Del Method 09/16/24 14:57 95 09/16/24 14:27 09/16/24 14:18 93 Room Air 09/16/24 14:04 92 Room Air 09/16/24 13:47 94 Room Air 09/16/24 13:30 09/16/24 13:00 09/16/24 11:10 94 Room Air 09/16/24 07:24 95 Room Air 09/16/24 07:10 Lab & Micro Results (Past 24 Hours) RBC 2.33 M/uL (4.70-6.10) L 09/16/24 WBC 15.78 K/ul (4.8-10.8) H 09/16/24 Hgb 5.6 g/dl (14.0-18.0) L* 09/16/24 Hct 17.2 % (42.0-52.0) L* 09/16/24 MCV 90.6 fL (80.0-100.0) 09/16/24 MCH 30.0 pg (25.0-34.0) 09/16/24 MCHC 33.2 g/dL (32.0-36.0) 09/16/24 RDW Standard Deviation 49.2 fL (36.4-46.3) H 09/16/24 RDW Coefficient of Variation 15.4 % (11.5-14.5) H 09/16/24 Plt Count 170 K/uL (130-400) 09/16/24 MPV 12.2 fL (9.4-12.4) 09/16/24 Neutrophils (%) (Auto) 73.9 % 09/16/24 Lymphocytes (%) (Auto) 13.4 % 09/16/24 Monocytes # (Auto) 1.75 K/uL (0.11-0.59) H 09/16/24 Eosinophils # (Auto) 0.10 K/uL (0.00-0.50) 09/16/24 Immature Granulocyte % (Auto) 0.6 % 09/16/24 Neutrophils # (Auto) 11.65 K/uL (1.40-6.50) H 09/16/24 Lymphocytes # (Auto) 2.12 K/uL (1.20-3.40) 09/16/24 Monocytes # (Auto) 1.75 K/uL (0.11-0.59) H 09/16/24 Eosinophils # (Auto) 0.10 K/uL (0.00-0.50) 09/16/24 Basophils # (Auto) 0.07 K/uL (0.00-0.20) 09/16/24 Immature Granulocyte # (Auto) 0.09 K/uL (0.01-0.20) 5 Polychromasia 1+ 09/16/24 Acanthocytes 1+ 09/16/24 Na 140 mmol/L (136-145) 09/16/24 K 4.1 mmol/L (3.5-5.1) 09/16/24 Cl 109 mmol/L (98-107) H 09/16/24 CO2 26 mmol/L (21-32) 09/16/24 Anion Gap 5 (3-11) 09/16/24 BUN 23 mg/dl (6-23) 09/16/24 Creatinine 0.98 mg/dl (0.6-1.4) 09/16/24 BUN/Creatinine Ratio 23.5 (10-20) H 09/16/24 Glu 152 mg/dl (70-99(Fasting)) H 09/16/24 Ca 7.3 mg/dl (8.6-10.3) L 09/16/24 Phosphorus Level 3.5 mg/dl (2.5-4.9) 09/16/24 Total Bilirubin 0.5 mg/dl (0.2-1.0) 09/16/24 AST 17 U/L (13-39) 09/16/24 ALT 16 U/L (7-52) 09/16/24 Alkaline Phosphatase 64 U/L (34-104) 09/16/24 TP 4.6 gm/dl (6.0-8.3) L 09/16/24 Albumin 2.6 gm/dl (3.4-5.0) L 09/16/24 Globulin 2.0 gm/dl (2.5-4.0) L 09/16/24 Albumin/Globulin Ratio 1.3 (0.9-2) 09/16/24 Mg 2.0 mg/dl (1.7-2.4) 09/16/24 06:36 Calcium Level 7.3 mg/dl (8.6-10.3) L 09/16/24 06:36 I & O Totals 24 Hours 09/15/24 09/16/24 09/17/24 06:59 06:59 06:59 Intake Total 1041.666 / 1041.666 860 / 860 1220 / 1220 Output Total 1402 / 1402 1600 / 1600 300 / 300 Balance -360.334 / -360.334 -740 / -740 920 / 920 Cumulative 09/12/24 10:28 thru 09/16/24 15:00 Intake Total 9480.999 Output Total 6508 Balance 2972.999 RT Ventilator Mngmt (Last Documented) Ventilator Ordered Settings Respiratory Rate 24 09/16/24 14:57 Ventilator - PT Measurements Respiratory Rate 24 Coding Level of Care Code 77462 CRITICAL CARE 1ST 30-74M Diagnoses GI bleeding K92.2 GI bleed type/associated pathology: unspecified gastrointestinal hemorrhage type (1) GI bleeding GI bleed type/associated pathology: unspecified gastrointestinal hemorrhage type Qualified Code(s): K92.2 - Gastrointestinal hemorrhage, unspecified
[2024-09-16] MEDS: LACTATED RINGER'S 1,000 ML IV SCH (15:14)
[2024-09-16] MEDS: CALCIUM GLUCONATE 1,000 MG/60 ML BAG IV SCH (15:29)
[2024-09-16] MEDS ORDERED: Nursing to Pharmacy Communication SCH (15:45)
[2024-09-16] MEDS: PLASMA-LYTE A 1,000 ML IV ONE (15:57)
[2024-09-16] MEDS: AMPICILLIN/SULBACTAM SOD 3,000 MG/100 ML BAG IV SCH (16:34)
[2024-09-16] MEDS: OPTIRAY 320 125ml IV ONE (16:34)
--- NOTE | 2024-09-16 16:47 | CT Scan Report ---
CT angiogram abd pelvis IV con only CLINICAL HISTORY: Abdominal pain TECHNIQUE: Helical axial images of the abdomen and pelvis were obtained and displayed. Automated dose lowering techniques and/or adjustment according to patient size were utilized for this exam. This exam was performed with intravenous contrast. COMPARISON: 09/12/2024 FINDINGS: Lower chest: There are new small pleural effusions bilaterally, with subjacent compressive atelectasis. Mild basilar and peripheral interstitial lung disease superimposed is also again seen. Liver: Unremarkable. No focal lesions are seen. Gallbladder and biliary tree: No calcified gallstones. Normal caliber wall. No intra- or extrahepatic biliary ductal dilation. Pancreas: A 21 mm pancreatic cystic lesion is seen. Fatty replacement is noted. Spleen: The spleen is absent. A few splenule's are seen Adrenals: Unremarkable. Kidneys and ureters: Numerous simple appearing renal cysts are seen, one with a calcification. Bladder: Mora catheter is seen. A bladder stone is seen. Reproductive organs: Unremarkable. Bowel: Diverticulosis is seen without diverticulitis. The appendix is normal. No bowel obstruction. There is a large volume of stool in the rectum. Lymph nodes: No pathologic lymphadenopathy. Retroperitoneal: Unremarkable. Pelvic: Unremarkable. Mesenteric: Unremarkable. Peritoneum: Normal. No significant free fluid. Vessels: Mild atherosclerotic calcifications are seen. Infrarenal mild dilation of the aorta measures 26 mm. No dissection. The major branch vessels, including the renal arteries, celiac artery, SMA, and ALEXUS are patent. The iliac arteries and proximal femoral arteries appear patent. Abdominal wall: Right fat-containing inguinal hernia. Bones: Degenerative changes in the visualized spine. IMPRESSION: 1. No acute aortic pathology of the abdomen and pelvis. No dissection. Focal mild dilation of the infrarenal abdominal aorta, as above. 2. Pancreatic body cystic lesion likely represents IPMN. 3. There are new small pleural effusions, and new pulmonary edema. Mild superimposed interstitial lung disease again seen at the lung bases. Electronically signed by Dioni Hightower 09-16-2024 4:47 PM
[2024-09-16 17:12] LABS: Fibrinogen 319 mg/dl (184-400); INR 1.1 (0.9-1.1); Prothrombin Time 12.3 Seconds (9.0-12.0)
[2024-09-16 20:21] LABS: Hematocrit (blood only) 23.1 % (42.0-52.0); Hemoglobin 7.8 g/dl (14.0-18.0)
--- NOTE | 2024-09-16 20:28 | Surgery Consultation ---
Date of Consultation September 16, 2024 Assessment & Plan (1) GI bleeding: Patient is a 84-year-old male who presented to the hospital on 09/12/2024 with complaints of abdominal pain and bright red blood per rectum. He was admitted to the hospitalist service and has been seen by the GI team. Patient ultimately und erwent an EGD and colonoscopy on 09/13/2024 which demonstrated gastritis and multiple diverticula within the sigmoid and ascending colon but no active bleeding was appreciated. Today the patient was noted to have a drop in his hemoglobin to 5.6 and was tachycardic. He was transferred to the ICU where he has received 2u packed cells. CTA A/P performed today as well and there was no evidence of active bleeding noted. Patient was seen and examined in the ICU this evening. He is nontoxic appearing, resting comfortably, and VSS. Patient's repeat H&H after blood products back to 7.8/23.1. On exam patient has mild TTP in the lower abdominal region but otherwise is soft and nondistended. CIARRA performed and some dry blood was present at the rectum however no active bleeding was appreciated. He denies any recent BM. Discussed patient's case with attending surgeon production assistant, Dr. Greenwood, and surgical team recommends the following: -Keep NPO for now, continue resuscitation -Trend H&H -Currently no indication for emergent surgical intervention. Patient may require another scope by GI to further evaluate for any active bleeding. If he is actively bleeding, would suggest transfer for possible IR intervention. Supervising Physician Co-Signing Physician Notes pnt d/w LUAN, labs and imaging reviewed, agree with above. Recurrent GI bleed, last c-scope no active bleeder, CTA no e/o bleeder. responded to 2 units prbcs. HDS. Source has not been localized but presumed to be diverticular, however surgery would likely require subtotal colectomy and no guarantee colon is source. Would recommend repeat scop, and transfer to facility with IR capabilities if ongoing bleeding. Surgery only if hemodynamically unstable and other measures fail. Surgery will follow while in house. History of Present Illness Reason for Consultation: GI bleed History of Present Illness Patient is a 84-year-old male who presented to the hospital on 09/12/2024 with complaints of abdominal pain and bright red blood per rectum. The patient was admitted to the hospitalist service and has been seen by the GI team. Patient ultimately underwent an EGD and colonoscopy on 09/13/2024 which demonstrated gastritis and multiple diverticula within the sigmoid and ascending colon but no active bleeding was appreciated. Today however the patient was noted to have a drop in his hemoglobin to 5.6 and was tachycardic. He was transferred to the ICU where he has received 2u packed cells. The surgery team was consulted for potential ongoing bleeding. Patient was seen and examined in the ICU this evening. Patient is resting comfortably in bed, vitals stable, and has no complaints. Patient just finished receiving blood products and repeat H&H is pending. Patient tells me that he at times does have LLQ and lower abdominal pain however denies any nausea or vomiting. The patient states that he hasn't had a bowel movement today but prior to coming to the hospital he was having a few days of both bright red and dark red blood when having a bowel movement. He states he's had an inguinal hernia repair in the past but otherwise denies any other abdominal surgeries. Allergies Allergy/AdvReac Type Severity Reaction Status Date / Time No Known Allergies Allergy Unverified 05/22/24 07:52 Home Medications Medication Instructions Recorded Confirmed Type atorvastatin 40 mg tablet 40 mg PO HS 12/06/18 09/12/24 History tamsulosin 0.4 mg capsule 0.4 mg PO HS 12/06/18 09/12/24 History dutasteride 0.5 mg capsule 0.5 mg PO DAILY #90 caps 07/08/23 09/12/24 Rx (Avodart) lisinopril 20 mg tablet 20 mg PO DAILY 09/12/24 09/12/24 History Patient History Medical History Stomach ulcer Diabetes Surgical History No pertinent past surgical history Family History Other No significant family history Social History Smoking Status: Current every day smoker Tobacco Type: E-cigarettes / Vaping Do You Dip or Chew Tobacco: Yes; Hx Alcohol Use: No Hx Substance Use: No Preferred Language: Mongolian Communication Ability: Unable Steel Estimator Required: No Beliefs That Will Affect Care: None Current Living Situation Comment: [facility] Feels Safe at Home: Yes Assistive Devices: None Review of Systems Review of Systems: All systems reviewed & are unremarkable except as noted in HPI & below Gastrointestinal: as per Subjective / HPI Physical Exam Constitutional: WD/WN, vitals as above Respiratory: normal respiratory effort, lungs clear to auscultation Cardiovascular: RRR, no murmur, no edema Gastrointestinal (Abdomen): Inspection/Auscultation: abdomen normal to inspection and normal bowel sounds; abdomen not distended Percussion/Palpation: + abdomen tender (mild TTP lower abdomen) and abdomen soft; no guarding, abdomen not rigid and abdomen not firm CIARRA performed at bedside - no palpable mass, there is some dried blood present at the rectum however no active bleeding appreciated during my exam. No pain during exam. Results & Data Vital Signs (Past 12 Hours) Vital Signs Temp Pulse Pulse Resp BP BP BP 09/16/24 19:08 36.7 C 97 H 24 121/62 09/16/24 18:33 36.8 C 99 H 20 113/65 09/16/24 18:11 36.7 C 107 H 21 96/65 L 09/16/24 17:46 36.6 C 124 H 25 H 115/62 09/16/24 17:31 36.8 C 117 H 24 101/64 09/16/24 17:18 36.6 C 121 H 22 114/69 09/16/24 17:00 36.8 C 101 H 18 117/64 09/16/24 16:00 37.2 C 101 H 24 141/73 H 09/16/24 15:30 36.7 C 96 H 19 121/65 09/16/24 15:15 37.1 C 108 H 25 H 126/59 L 09/16/24 14:57 37.7 C H 110 H 24 100/59 L 09/16/24 14:54 115 H 22 100/59 L 09/16/24 14:49 37.7 C H 114 H 21 120/61 09/16/24 14:27 102 H 09/16/24 14:18 103 H 25 H 122/52 L 09/16/24 14:04 109 H 21 118/59 L 09/16/24 13:47 37.6 C H 110 H 18 123/59 L 09/16/24 13:30 113/48 L 09/16/24 13:00 103 H 09/16/24 11:10 36.8 C 104 H 19 98/52 L Pulse Ox O2 Del Method 09/16/24 19:08 95 09/16/24 18:33 95 09/16/24 18:11 97 09/16/24 17:46 97 09/16/24 17:31 96 09/16/24 17:18 98 09/16/24 17:00 97 09/16/24 16:00 99 09/16/24 15:30 95 09/16/24 15:15 96 09/16/24 14:57 95 09/16/24 14:54 95 Room Air 09/16/24 14:49 94 Room Air 09/16/24 14:27 09/16/24 14:18 93 Room Air 09/16/24 14:04 92 Room Air 09/16/24 13:47 94 Room Air 09/16/24 13:30 09/16/24 13:00 09/16/24 11:10 94 Room Air Diagnostic Findings 09/12/2024 CT A/P: CT abd pelvis IV con only CLINICAL HISTORY: ab pain, WBC 17 TECHNIQUE: Helical axial images of the abdomen and pelvis were obtained and displayed. Automated dose lowering techniques and/or adjustment according to patient size were utilized for this exam. This exam was performed with intravenous contrast. CT DOSE: 804.66 mGy.cm COMPARISON: Comparison is made to CT abdomen pelvis 06/22/2023 FINDINGS: Lower chest: Bibasilar atelectasis versus scarring is seen. Liver: Unremarkable. No focal lesions are seen. Gallbladder and biliary tree: No calcified gallstones. Normal caliber wall. No intra- or extrahepatic biliary ductal dilation. Pancreas: A 21 mm pancreatic cystic lesion is seen. Fatty replacement is noted. Spleen: Splenomegaly is seen with a few splenule is noted. Adrenals: Unremarkable. Kidneys and ureters: Numerous simple appearing renal cysts are seen, one with a calcification. Bladder: Mora catheter is seen. A bladder stone is seen. Reproductive organs: Unremarkable. Bowel: Diverticulosis is seen without diverticulitis. The appendix is normal. Duodenal wall thickening and fat stranding is seen. Lymph nodes Retroperitoneal: Unremarkable. Pelvic: Unremarkable. Mesenteric: Unremarkable. Peritoneum: Normal. Vessels: Atherosclerotic calcifications are seen. 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 Abdominal wall: Right fat-containing inguinal hernia. Bones: Degenerative changes in the visualized spine. IMPRESSION: 1. Fat stranding and wall thickening about the duodenum compatible for duodenitis. 2. Pancreatic body cystic lesion likely represents IPMN. 3. Numerous renal cysts are seen. 4. Diverticulosis without diverticulitis. 09/16/2024 CTA A/P: CT angiogram abd pelvis IV con only CLINICAL HISTORY: Abdominal pain TECHNIQUE: Helical axial images of the abdomen and pelvis were obtained and displayed. Automated dose lowering techniques and/or adjustment according to patient size were utilized for this exam. This exam was performed with intravenous contrast. COMPARISON: 09/12/2024 FINDINGS: Lower chest: There are new small pleural effusions bilaterally, with subjacent compressive atelectasis. Mild basilar and peripheral interstitial lung disease superimposed is also again seen. Liver: Unremarkable. No focal lesions are seen. Gallbladder and biliary tree: No calcified gallstones. Normal caliber wall. No intra- or extrahepatic biliary ductal dilation. Pancreas: A 21 mm pancreatic cystic lesion is seen. Fatty replacement is noted. Spleen: The spleen is absent. A few splenule's are seen Adrenals: Unremarkable. Kidneys and ureters: Numerous simple appearing renal cysts are seen, one with a calcification. Bladder: Mora catheter is seen. A bladder stone is seen. Reproductive organs: Unremarkable. Bowel: Diverticulosis is seen without diverticulitis. The appendix is normal. No bowel obstruction. There is a large volume of stool in the rectum. Lymph nodes: No pathologic lymphadenopathy. Retroperitoneal: Unremarkable. Pelvic: Unremarkable. Mesenteric: Unremarkable. Peritoneum: Normal. No significant free fluid. Vessels: Mild atherosclerotic calcifications are seen. Infrarenal mild dilation of the aorta measures 26 mm. No dissection. The major branch vessels, including the renal arteries, celiac artery, SMA, and ALEXUS are patent. The iliac arteries and proximal femoral arteries appear patent. Abdominal wall: Right fat-containing inguinal hernia. Bones: Degenerative changes in the visualized spine. IMPRESSION: 1. No acute aortic pathology of the abdomen and pelvis. No dissection. Focal mild dilation of the infrarenal abdominal aorta, as above. 2. Pancreatic body cystic lesion likely represents IPMN. 3. There are new small pleural effusions, and new pulmonary edema. Mild superimposed interstitial lung disease again seen at the lung bases. Electronically signed by Dioni Hightower 09-16-2024 4:47 PM PG Care Time/CCT Total # of Minutes Spent Total Time Spent with Patient: Total time spent is greater than 50% in coordination of care (as documented) at patient's floor/unit and/or counseling patient: [place] [address] INT INP/OBS CARE 1/40MIN Patient Type New Medical Decision Making Straight Forward Diagnoses GI bleeding K92.2 GI bleed type/associated pathology: unspecified gastrointestinal hemorrhage type (1) GI bleeding GI bleed type/associated pathology: unspecified gastrointestinal hemorrhage type Qualified Code(s): K92.2 - Gastrointestinal hemorrhage, unspecified
[2024-09-16 20:40] LABS: Magnesium 2.1 mg/dl (1.7-2.4); Phosphorus 4.2 mg/dl (2.5-4.9); Potassium 4.7 mmol/L (3.5-5.1)
[2024-09-16] MEDS: ICU ELECTROLYTE REPLACEMENT PROTOCOL SCH (21:06)
--- NOTE | 2024-09-16 21:36 | Communication Note ---
Date of Service: September 16, 2024 Notified by RN of large volume liquid dark bloody output from rectum. No clots present. Volume > 1L. Patient tachycardic up to 130. Normotensive. He is in no acute distress and non-toxic appearing. States LLQ abdominal pain is similar to prior. Nonperitoneal on examination. Bowel sounds present. Will reach out to GI team for guidance regarding continued bleeding. Coding Level of Care Code None
[2024-09-17 04:07] LABS: Hematocrit (blood only) 24.2 % (42.0-52.0); Hemoglobin 8.5 g/dl (14.0-18.0); Mean Corpuscular Hemoglobin 30.2 pg (25.0-34.0); Mean Corpuscular Hgb Conc 35.1 g/dL (32.0-36.0); Mean Corpuscular Volume 86.1 fL (80.0-100.0); Mean Platelet Volume 11.9 fL (9.4-12.4); Nucleated RBC # (auto) 0.04 K/uL (0.00-0.12); Nucleated RBC % (auto) 0.3 %; Platelet Count 162 K/uL (130-400); RDW Coefficient of Variation 14.8 % (11.5-14.5); RDW Standard Deviation 45.9 fL (36.4-46.3); Red Blood Count 2.81 M/uL (4.70-6.10); White Blood Count 15.91 K/ul (4.8-10.8)
[2024-09-17 04:22] LABS: BUN Creatinine Ratio 27.7 (10-20); Calcium 7.2 mg/dl (8.6-10.3); Creatinine Clr Calc Pharmacy 40.2 ml/min; Magnesium 2.2 mg/dl (1.7-2.4); Phosphorus 3.5 mg/dl (2.5-4.9); Potassium 4.3 mmol/L (3.5-5.1)
[2024-09-17] MEDS ORDERED: Nursing to Pharmacy Communication SCH (07:30)
[2024-09-17] MEDS: INSULIN ASPART PER UNIT CHARGE SC SCH (07:55)
[2024-09-17] MEDS: PANTOprazole 40 MG/10 ML SYR IV SCH (09:11)
--- NOTE | 2024-09-17 09:12 | History & Physical Bridge Note ---
Date of Service September 17, 2024 History & Physical Bridge Note I have examined the patient, reviewed the History & Physical and in the interval since the performance of the History & Physical I have noted the following changes of clinical significance: Patient has had ongoing blood in his stools. Last episode of rectal bleeding about 45 minutes ago. Yesterday, his hgb had fallen to 5.6. no nausea, vomiting, chest pain, sob. He has had some lower abdominal cramping, but no pain. - will see how much of a prep he can get in this morning before noon. - will plan for repeat colonoscopy this afternoon.
[2024-09-17 09:13] LABS: Hematocrit (blood only) 22.1 % (42.0-52.0); Hemoglobin 7.5 g/dl (14.0-18.0); Mean Corpuscular Hemoglobin 30.2 pg (25.0-34.0); Mean Corpuscular Hgb Conc 33.9 g/dL (32.0-36.0); Mean Corpuscular Volume 89.1 fL (80.0-100.0); Mean Platelet Volume 11.5 fL (9.4-12.4); Nucleated RBC # (auto) 0.04 K/uL (0.00-0.12); Nucleated RBC % (auto) 0.3 %; Platelet Count 154 K/uL (130-400); RDW Coefficient of Variation 14.6 % (11.5-14.5); RDW Standard Deviation 46.6 fL (36.4-46.3); Red Blood Count 2.48 M/uL (4.70-6.10); White Blood Count 14.44 K/ul (4.8-10.8)
[2024-09-17] MEDS: LAVAGE SOLUTION 4000ML PO SCH (09:25)
--- NOTE | 2024-09-17 09:25 | Critical Care Progress Note ---
Date of Service September 17, 2024 Assessment & Plan (1) GI bleeding: Plan (1) GI bleeding: Plan Impression: 84-year-old male admitted 4 days ago with lower GI bleed felt to be diverticular now with acute drop in hemoglobin and hematocrit with tachycardia. He is currently under resuscitated. Recommendations: 1. Neurologic no current issues. 2. Cardiovascular: Remains tachycardic due to acute blood loss anemia. 3. GI: CTA negative. Patient with another large melanotic stool this morning. He is being prepped for colonoscopy. 4. Heme-onc: Acute blood loss anemia. Continue transfusion and try and maintain a hemoglobin of around 8. No evidence of DIC. 5. Renal: ICU electrolyte replacement protocol. 6. ID: He was treated with 5 days of antibiotics for UTI. Patient asymptomatic from a urosepsis perspective. Doubtful of bacterial gastroenteritis. Will hold further antibiotics at this time. 7. Endocrine: Glycemic control per protocol. 8. Pulmonary: No current issues. Continue to follow clinically. Patient to remain in the ICU at this time until further GI follow-up. Admission and Anticipated Discharge Date Admission Date: September 12, 2024 Subjective Patient with more melanotic stools this morning. Mildly tachycardic. Denies any dizziness, chest pain, abdominal pain or shortness of breath. Review of Systems Review of Systems: All systems reviewed & are unremarkable except as noted in HPI & below Physical Exam Constitutional: WD/WN, vitals as above Neck: trachea midline, no thyromegaly Respiratory: normal respiratory effort, lungs clear to auscultation Cardiovascular: Rate/Rhythm: + tachycardic Heart Sounds: normal S1 and normal S2; no murmur Extremities: + edema Gastrointestinal (Abdomen): Inspection/Auscultation: abdomen normal to inspection and normal bowel sounds Percussion/Palpation: abdomen nontender, no guarding and abdomen not rigid Minimally tender to palpation left lower quadrant Musculoskeletal: Extremities: extremities normal to inspection (LUE edematous ) Skin: no rashes, warm and dry Neurologic: Nonfocal exam Lymphatic: no cervical lymphadenopathy Results & Data Results & Data Vital Signs (Past 12 Hours) Vital Signs Temp Pulse Pulse Resp BP BP Pulse Ox 09/17/24 08:00 113 H 20 102/67 93 09/17/24 07:00 36.8 C 90 18 120/69 94 09/17/24 06:00 117/59 L 09/17/24 05:57 85 20 94 09/17/24 05:45 87/62 L 09/17/24 05:45 89 19 92 09/17/24 05:30 106/54 L 09/17/24 05:27 85 18 92 09/17/24 05:15 104/54 L 09/17/24 05:15 104/54 L 09/17/24 05:09 84 19 94 09/17/24 05:00 118/62 09/17/24 04:54 80 20 92 09/17/24 04:45 111/64 09/17/24 04:45 111/64 09/17/24 04:30 114/59 L 09/17/24 04:18 88 20 92 09/17/24 04:15 110/58 L 09/17/24 04:15 110/58 L 09/17/24 04:15 110/58 L 09/17/24 04:03 93 H 25 H 92 09/17/24 04:00 93 H 24 92 09/17/24 04:00 114/60 09/17/24 04:00 114/60 09/17/24 04:00 114/60 09/17/24 03:46 112/59 L 09/17/24 03:46 112/59 L 09/17/24 03:45 93 H 20 90 09/17/24 03:30 135/75 09/17/24 03:21 112 H 26 H 92 09/17/24 03:12 92 H 22 94 09/17/24 02:45 109/58 L 09/17/24 02:36 93 H 23 90 09/17/24 02:30 105/59 L 09/17/24 02:30 105/59 L 09/17/24 02:09 88 18 90 09/17/24 02:00 105/56 L 09/17/24 02:00 105/56 L 09/17/24 01:54 98 H 16 87 L 09/17/24 01:45 108/57 L 09/17/24 01:45 108/57 L 09/17/24 01:45 89 15 94 09/17/24 01:34 92 H 20 106/62 92 09/17/24 01:30 95 H 23 93 09/17/24 01:30 106/62 09/17/24 01:16 36.6 C 94 H 20 100/61 99 09/17/24 01:15 94 H 22 96 09/17/24 01:15 100/61 09/17/24 01:15 100/61 09/17/24 01:03 92 H 23 94 09/17/24 01:00 104/64 09/17/24 01:00 104/64 09/17/24 00:54 94 H 20 92 09/17/24 00:45 110/61 09/17/24 00:45 94 H 22 92 09/17/24 00:30 107/59 L 09/17/24 00:30 107/59 L 09/17/24 00:30 93 H 21 95 09/17/24 00:21 94 H 23 91 09/17/24 00:00 98/57 L 09/16/24 23:54 104 H 22 91 09/16/24 23:42 115 H 23 91 09/16/24 23:34 105/57 L 09/16/24 23:34 105/57 L 09/16/24 23:33 36.6 C 91 H 20 105/57 L 98 09/16/24 23:33 36.6 C 96 H 20 105/57 L 97 09/16/24 23:30 96/54 L 09/16/24 23:24 95 H 20 91 09/16/24 23:21 97 H 24 93 09/16/24 23:03 99 H 22 89 L 09/16/24 23:00 123/63 O2 Del Method 09/17/24 08:00 Room Air 09/17/24 07:00 Room Air 09/17/24 06:00 09/17/24 05:57 09/17/24 05:45 09/17/24 05:45 09/17/24 05:30 09/17/24 05:27 09/17/24 05:15 09/17/24 05:15 09/17/24 05:09 09/17/24 05:00 09/17/24 04:54 09/17/24 04:45 09/17/24 04:45 09/17/24 04:30 09/17/24 04:18 09/17/24 04:15 09/17/24 04:15 09/17/24 04:15 09/17/24 04:03 09/17/24 04:00 09/17/24 04:00 09/17/24 04:00 09/17/24 04:00 09/17/24 03:46 09/17/24 03:46 09/17/24 03:45 09/17/24 03:30 09/17/24 03:21 09/17/24 03:12 09/17/24 02:45 09/17/24 02:36 09/17/24 02:30 09/17/24 02:30 09/17/24 02:09 09/17/24 02:00 09/17/24 02:00 09/17/24 01:54 09/17/24 01:45 09/17/24 01:45 09/17/24 01:45 09/17/24 01:34 09/17/24 01:30 09/17/24 01:30 09/17/24 01:16 09/17/24 01:15 09/17/24 01:15 09/17/24 01:15 09/17/24 01:03 09/17/24 01:00 09/17/24 01:00 09/17/24 00:54 09/17/24 00:45 09/17/24 00:45 09/17/24 00:30 09/17/24 00:30 09/17/24 00:30 09/17/24 00:21 09/17/24 00:00 09/16/24 23:54 09/16/24 23:42 09/16/24 23:34 09/16/24 23:34 09/16/24 23:33 09/16/24 23:33 09/16/24 23:30 09/16/24 23:24 09/16/24 23:21 09/16/24 23:03 09/16/24 23:00 Coding Level of Care Code 77311 SUB INP/OBS CARE 2/35MIN Diagnoses GI bleeding K92.2 GI bleed type/associated pathology: unspecified gastrointestinal hemorrhage type (1) GI bleeding GI bleed type/associated pathology: unspecified gastrointestinal hemorrhage type Qualified Code(s): K92.2 - Gastrointestinal hemorrhage, unspecified
[2024-09-17] MEDS ORDERED: SODIUM CHLORIDE 0.9% 50 ML IV PRN ×2 (09:48→09:54)
[2024-09-17] MEDS ORDERED: SODIUM CHLORIDE 0.9% 100 ML IV PRN ×2 (09:48→09:54)
--- NOTE | 2024-09-17 09:50 | Surgery Progress Note ---
Date of Service September 17, 2024 Assessment & Plan (1) GI bleeding: Plan: Continued GI bleed. CTA report did not localize any bleeding within the bowel. Presumed to be diverticular, however no active bleeding was seen in this location at the time of colonoscopy. Recommend continued resuscitation Recommend repeat colonoscopy If failure to identify bleeding or treat with colonoscopy, would recommend transfer for possible IR embolization Given that we have not localize the source of bleeding, surgery would likely need to perform a subtotal colectomy and there would be no guarantee that this did not represent an upper GI source which could cause continued bleeding Dr. Fisher taking over care this week Admission and Anticipated Discharge Date Admission Date: September 12, 2024 Subjective Admitted for GI bleed. Colonoscopy a few days ago showed old blood in the sigmoid, but no active bleeding. Patient had a drop in his H&H and some repeat bleeding yesterday and was transferred to the ICU. He has received 3 units PRBCs and his H&H is responded appropriately. He thinks he was having a bloody bowel movement on rounds this morning. No pain. CTA yesterday did not localize the bleeding per the report. Physical Exam Constitutional: WD/WN, vitals as above Respiratory: normal respiratory effort, lungs clear to auscultation Cardiovascular: RRR, no murmur, no edema Gastrointestinal (Abdomen): normal bowel sounds, soft, nontender, no hepatosplenomegaly Results & Data Vital Signs (Past 12 Hours) Vital Signs Temp Pulse Pulse Resp BP BP Pulse Ox 09/17/24 07:00 36.8 C 90 18 120/69 94 09/17/24 06:00 117/59 L 09/17/24 05:57 85 20 94 09/17/24 05:45 87/62 L 09/17/24 05:45 89 19 92 09/17/24 05:30 106/54 L 09/17/24 05:27 85 18 92 09/17/24 05:15 104/54 L 09/17/24 05:15 104/54 L 09/17/24 05:09 84 19 94 09/17/24 05:00 118/62 09/17/24 04:54 80 20 92 09/17/24 04:45 111/64 09/17/24 04:45 111/64 09/17/24 04:30 114/59 L 09/17/24 04:18 88 20 92 09/17/24 04:15 110/58 L 09/17/24 04:15 110/58 L 09/17/24 04:15 110/58 L 09/17/24 04:03 93 H 25 H 92 09/17/24 04:00 93 H 24 92 09/17/24 04:00 114/60 09/17/24 04:00 114/60 09/17/24 04:00 114/60 09/17/24 03:46 112/59 L 09/17/24 03:46 112/59 L 09/17/24 03:45 93 H 20 90 09/17/24 03:30 135/75 09/17/24 03:21 112 H 26 H 92 09/17/24 03:12 92 H 22 94 09/17/24 02:45 109/58 L 09/17/24 02:36 93 H 23 90 09/17/24 02:30 105/59 L 09/17/24 02:30 105/59 L 09/17/24 02:09 88 18 90 09/17/24 02:00 105/56 L 09/17/24 02:00 105/56 L 09/17/24 01:54 98 H 16 87 L 09/17/24 01:45 108/57 L 09/17/24 01:45 108/57 L 09/17/24 01:45 89 15 94 09/17/24 01:34 92 H 20 106/62 92 09/17/24 01:30 95 H 23 93 09/17/24 01:30 106/62 09/17/24 01:16 36.6 C 94 H 20 100/61 99 09/17/24 01:15 94 H 22 96 09/17/24 01:15 100/61 09/17/24 01:15 100/61 09/17/24 01:03 92 H 23 94 09/17/24 01:00 104/64 09/17/24 01:00 104/64 09/17/24 00:54 94 H 20 92 09/17/24 00:45 110/61 09/17/24 00:45 94 H 22 92 09/17/24 00:30 107/59 L 09/17/24 00:30 107/59 L 09/17/24 00:30 93 H 21 95 09/17/24 00:21 94 H 23 91 09/17/24 00:00 98/57 L 09/16/24 23:54 104 H 22 91 09/16/24 23:42 115 H 23 91 09/16/24 23:34 105/57 L 09/16/24 23:34 105/57 L 09/16/24 23:33 36.6 C 91 H 20 105/57 L 98 09/16/24 23:33 36.6 C 96 H 20 105/57 L 97 09/16/24 23:30 96/54 L 09/16/24 23:24 95 H 20 91 09/16/24 23:21 97 H 24 93 09/16/24 23:03 99 H 22 89 L 09/16/24 23:00 123/63 O2 Del Method 09/17/24 07:00 Room Air 09/17/24 06:00 09/17/24 05:57 09/17/24 05:45 09/17/24 05:45 09/17/24 05:30 09/17/24 05:27 09/17/24 05:15 09/17/24 05:15 09/17/24 05:09 09/17/24 05:00 09/17/24 04:54 09/17/24 04:45 09/17/24 04:45 09/17/24 04:30 09/17/24 04:18 09/17/24 04:15 09/17/24 04:15 09/17/24 04:15 09/17/24 04:03 09/17/24 04:00 09/17/24 04:00 09/17/24 04:00 09/17/24 04:00 09/17/24 03:46 09/17/24 03:46 09/17/24 03:45 09/17/24 03:30 09/17/24 03:21 09/17/24 03:12 09/17/24 02:45 09/17/24 02:36 09/17/24 02:30 09/17/24 02:30 09/17/24 02:09 09/17/24 02:00 09/17/24 02:00 09/17/24 01:54 09/17/24 01:45 09/17/24 01:45 09/17/24 01:45 09/17/24 01:34 09/17/24 01:30 09/17/24 01:30 09/17/24 01:16 09/17/24 01:15 09/17/24 01:15 09/17/24 01:15 09/17/24 01:03 09/17/24 01:00 09/17/24 01:00 09/17/24 00:54 09/17/24 00:45 09/17/24 00:45 09/17/24 00:30 09/17/24 00:30 09/17/24 00:30 09/17/24 00:21 09/17/24 00:00 09/16/24 23:54 09/16/24 23:42 09/16/24 23:34 09/16/24 23:34 09/16/24 23:33 09/16/24 23:33 09/16/24 23:30 09/16/24 23:24 09/16/24 23:21 09/16/24 23:03 09/16/24 23:00 Laboratory Results Laboratory Results - last 24 hr 09/16/24 09/16/24 09/16/24 11:10 12:44 15:49 WBC RBC Hgb 5.6 L* Hct 17.2 L* MCV MCH MCHC RDW Std Deviation RDW Coeff of Star Plt Count MPV Absolute Nucleated RBC Nucleated RBC % (auto) PT 12.3 H INR 1.1 Fibrinogen 319 Sodium Potassium Chloride Carbon Dioxide Anion Gap BUN Creatinine Est Cr Clr Drug Dosing eGFR BUN/Creatinine Ratio Glucose POC Glucose 174 H Calcium Phosphorus Magnesium Troponin I High Sens 15.0 B-Natriuretic Peptide 50 Nasal Screen MRSA (PCR) Blood Type A Positive Antibody Screen NEGATIVE Crossmatch See Detail 09/16/24 09/16/24 09/16/24 15:52 16:16 19:51 WBC RBC Hgb 7.8 L Hct 23.1 L MCV MCH MCHC RDW Std Deviation RDW Coeff of Star Plt Count MPV Absolute Nucleated RBC Nucleated RBC % (auto) PT INR Fibrinogen Sodium Potassium 4.7 Chloride Carbon Dioxide Anion Gap BUN Creatinine Est Cr Clr Drug Dosing eGFR BUN/Creatinine Ratio Glucose POC Glucose 160 H Calcium Phosphorus 4.2 Magnesium 2.1 Troponin I High Sens B-Natriuretic Peptide Nasal Screen MRSA (PCR) Negative Blood Type Antibody Screen Crossmatch 09/16/24 09/16/24 09/17/24 20:13 23:45 03:34 WBC 15.91 H RBC 2.81 L Hgb 7.6 L 8.5 L Hct 24.2 L MCV 86.1 MCH 30.2 MCHC 35.1 RDW Std Deviation 45.9 RDW Coeff of Star 14.8 H Plt Count 162 MPV 11.9 Absolute Nucleated RBC 0.04 Nucleated RBC % (auto) 0.3 PT INR Fibrinogen Sodium 142 Potassium 4.3 Chloride 112 H Carbon Dioxide 26 Anion Gap 4 BUN 33 H Creatinine 1.19 Est Cr Clr Drug Dosing 40.2 eGFR 59.49 BUN/Creatinine Ratio 27.7 H Glucose 133 H POC Glucose 140 H Calcium 7.2 L Phosphorus 3.5 Magnesium 2.2 Troponin I High Sens B-Natriuretic Peptide Nasal Screen MRSA (PCR) Blood Type Antibody Screen Crossmatch 09/17/24 09/17/24 07:42 08:49 WBC 14.44 H RBC 2.48 L Hgb 7.5 L Hct 22.1 L MCV 89.1 MCH 30.2 MCHC 33.9 RDW Std Deviation 46.6 H RDW Coeff of Star 14.6 H Plt Count 154 MPV 11.5 Absolute Nucleated RBC 0.04 Nucleated RBC % (auto) 0.3 PT INR Fibrinogen Sodium Potassium Chloride Carbon Dioxide Anion Gap BUN Creatinine Est Cr Clr Drug Dosing eGFR BUN/Creatinine Ratio Glucose POC Glucose 175 H Calcium Phosphorus Magnesium Troponin I High Sens B-Natriuretic Peptide Nasal Screen MRSA (PCR) Blood Type Antibody Screen Crossmatch Diagnostic Findings Abdomen/Pelvis CTA 09/16/24 13:38 CT angiogram abd pelvis IV con only CLINICAL HISTORY: Abdominal pain TECHNIQUE: Helical axial images of the abdomen and pelvis were obtained and displayed. Automated dose lowering techniques and/or adjustment according to patient size were utilized for this exam. This exam was performed with intravenous contrast. COMPARISON: 09/12/2024 FINDINGS: Lower chest: There are new small pleural effusions bilaterally, with subjacent compressive atelectasis. Mild basilar and peripheral interstitial lung disease superimposed is also again seen. Liver: Unremarkable. No focal lesions are seen. Gallbladder and biliary tree: No calcified gallstones. Normal caliber wall. No intra- or extrahepatic biliary ductal dilation. Pancreas: A 21 mm pancreatic cystic lesion is seen. Fatty replacement is noted. Spleen: The spleen is absent. A few splenule's are seen Adrenals: Unremarkable. Kidneys and ureters: Numerous simple appearing renal cysts are seen, one with a calcification. Bladder: Mora catheter is seen. A bladder stone is seen. Reproductive organs: Unremarkable. Bowel: Diverticulosis is seen without diverticulitis. The appendix is normal. No bowel obstruction. There is a large volume of stool in the rectum. Lymph nodes: No pathologic lymphadenopathy. Retroperitoneal: Unremarkable. Pelvic: Unremarkable. Mesenteric: Unremarkable. Peritoneum: Normal. No significant free fluid. Vessels: Mild atherosclerotic calcifications are seen. Infrarenal mild dilation of the aorta measures 26 mm. No dissection. The major branch vessels, including the renal arteries, celiac artery, SMA, and ALEXUS are patent. The iliac arteries and proximal femoral arteries appear patent. Abdominal wall: Right fat-containing inguinal hernia. Bones: Degenerative changes in the visualized spine. IMPRESSION: 1. No acute aortic pathology of the abdomen and pelvis. No dissection. Focal mild dilation of the infrarenal abdominal aorta, as above. 2. Pancreatic body cystic lesion likely represents IPMN. 3. There are new small pleural effusions, and new pulmonary edema. Mild superimposed interstitial lung disease again seen at the lung bases. Electronically signed by Dioni Hightower 09-16-2024 4:47 PM PG Care Time/CCT Total # of Minutes Spent Total Time Spent with Patient: Total time spent is greater than 50% in coordination of care (as documented) at patient's floor/unit and/or counseling patient: Coding Level of Care Code 20424 SUB INP/OBS CARE 2/35MIN Diagnoses GI bleeding K92.2 GI bleed type/associated pathology: unspecified gastrointestinal hemorr kala type (1) GI bleeding GI bleed type/associated pathology: unspecified gastrointestinal hemorrhage type Qualified Code(s): K92.2 - Gastrointestinal hemorrhage, unspecified
--- NOTE | 2024-09-17 10:20 | Hospitalist Progress Note ---
Date of Service September 17, 2024 Assessment & Plan (1) GI bleeding: (2) Abdominal pain: (3) Hyperkalemia: (4) Hyperglycemia: Plan This is an 84-year-old incarcerated male who has significant past medical history of HTN, HLD, urinary retention and bilateral hydronephrosis with chronic Mora catheter in place who presents to ED secondary to bright red blood per rectum as well as abdominal pain for the past few days. Rectal Bleeding Acute Blood Loss Anemia Abdominal pain Possible Duodenitis Anal Mass Pt presented with rectal bleeding Hemoglobin dropped acutely from 12.4-9.[address] abdomen pelvis noting possible duodenitis GI consulted, recommended or stated the following: -Status post EGD and colonoscopy on September 13, 2024 -Anal mass noted for which GI recommends colorectal follow-up as an outpatient -many diverticula noted -Noted blood in the sigmoid colon and in the descending colon, GI noting suspicious for diverticular bleed -Multiple biopsies taken from the gastric antrum and gastric body, pending Continue to monitor H&H- currently downtrended but stable Will need colorectal follow-up after discharge 09/16/24- Patient with drop of hemoglobin from 7.0 this morning to 5 range on repeat. Patient hypotensive and tachycardic. given a fluid bolus and ordered transfused [address] angio of the abdomen ordered per recommendations of GI and [facility] was consulted for transfer. Patient was transferred to the ICU for further evaluation and management. 09/17/24- patient currently awaiting colonoscopy and/or EGD. Has since been transfused 3 units of blood with rise in hemoglobin from 5 to 8 range before downtrending to 7.5 again this morning. Hemodynamically stable at this time. Sepsis Complicated urinary tract infection Patient presented hypotensive and tachycardic, with chronic leukocytosis Lactate elevated with downtrend after fluid resuscitation UA suggestive of infection, urine culture grew E faecalis and Citrobacter IV Rocephin switched to cefepime and daptomycin Adjust antibiotics based on culture sensitivities once available Follow blood cultures, no growth to date Continue to monitor 09/16/24- switched to Unasyn in the ICU 09/17/24- abx discontinued in the ICU Hyperkalemia Initial K was 6.7 s/p Calcium Gluconate, Dextrose and IV insulin EKG with normal sinus rhythm with right bundle branch block currently within normal limits Continue to monitor Improved DMII hemoglobin A1c of 8.3 Basal bolus per protocol Will need outpatient follow-up as this is a new diagnosis for for patient Continue to monitor 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 before his procedures States he felt better or as compared with the day before Still having bloody bowel movements overnight and this morning Review of Systems Review of Systems: All systems reviewed & are unremarkable except as noted in Subjective Physical Exam Physical Exam: General: Alert, oriented. HEENT: NC/AT CV: RRR Resp: Breath sounds clear bilaterally, no increased effort of breathing Abdomen: Soft, nontender Extremities: No edema in lower extremities bilaterally. Results & Data Results & Data Vital Signs (Past 12 Hours) Vital Signs Temp Pulse Pulse Resp BP BP Pulse Ox 09/17/24 10:17 89 23 112/70 98 09/17/24 08:00 113 H 20 102/67 93 09/17/24 07:00 36.8 C 90 18 120/69 94 09/17/24 06:00 117/59 L 09/17/24 05:57 85 20 94 09/17/24 05:45 87/62 L 09/17/24 05:45 89 19 92 09/17/24 05:30 106/54 L 09/17/24 05:27 85 18 92 09/17/24 05:15 104/54 L 09/17/24 05:15 104/54 L 09/17/24 05:09 84 19 94 09/17/24 05:00 118/62 09/17/24 04:54 80 20 92 09/17/24 04:45 111/64 09/17/24 04:45 111/64 09/17/24 04:30 114/59 L 09/17/24 04:18 88 20 92 09/17/24 04:15 110/58 L 09/17/24 04:15 110/58 L 09/17/24 04:15 110/58 L 09/17/24 04:03 93 H 25 H 92 09/17/24 04:00 93 H 24 92 09/17/24 04:00 114/60 09/17/24 04:00 114/60 09/17/24 04:00 114/60 09/17/24 03:46 112/59 L 09/17/24 03:46 112/59 L 09/17/24 03:45 93 H 20 90 09/17/24 03:30 135/75 09/17/24 03:21 112 H 26 H 92 09/17/24 03:12 92 H 22 94 09/17/24 02:45 109/58 L 09/17/24 02:36 93 H 23 90 09/17/24 02:30 105/59 L 09/17/24 02:30 105/59 L 09/17/24 02:09 88 18 90 09/17/24 02:00 105/56 L 09/17/24 02:00 105/56 L 09/17/24 01:54 98 H 16 87 L 09/17/24 01:45 108/57 L 09/17/24 01:45 108/57 L 09/17/24 01:45 89 15 94 09/17/24 01:34 92 H 20 106/62 92 09/17/24 01:30 95 H 23 93 09/17/24 01:30 106/62 09/17/24 01:16 36.6 C 94 H 20 100/61 99 09/17/24 01:15 94 H 22 96 09/17/24 01:15 100/61 09/17/24 01:15 100/61 09/17/24 01:03 92 H 23 94 09/17/24 01:00 104/64 09/17/24 01:00 104/64 09/17/24 00:54 94 H 20 92 09/17/24 00:45 110/61 09/17/24 00:45 94 H 22 92 09/17/24 00:30 107/59 L 09/17/24 00:30 107/59 L 09/17/24 00:30 93 H 21 95 09/17/24 00:21 94 H 23 91 09/17/24 00:00 98/57 L 09/16/24 23:54 104 H 22 91 09/16/24 23:42 115 H 23 91 09/16/24 23:34 105/57 L 09/16/24 23:34 105/57 L 09/16/24 23:33 36.6 C 91 H 20 105/57 L 98 09/16/24 23:33 36.6 C 96 H 20 105/57 L 97 09/16/24 23:30 96/54 L 09/16/24 23:24 95 H 20 91 09/16/24 23:21 97 H 24 93 09/16/24 23:03 99 H 22 89 L 09/16/24 23:00 123/63 O2 Del Method 09/17/24 10:17 09/17/24 08:00 Room Air 09/17/24 07:00 Room Air 09/17/24 06:00 09/17/24 05:57 09/17/24 05:45 09/17/24 05:45 09/17/24 05:30 09/17/24 05:27 09/17/24 05:15 09/17/24 05:15 09/17/24 05:09 09/17/24 05:00 09/17/24 04:54 09/17/24 04:45 09/17/24 04:45 09/17/24 04:30 09/17/24 04:18 09/17/24 04:15 09/17/24 04:15 09/17/24 04:15 09/17/24 04:03 09/17/24 04:00 09/17/24 04:00 09/17/24 04:00 09/17/24 04:00 09/17/24 03:46 09/17/24 03:46 09/17/24 03:45 09/17/24 03:30 09/17/24 03:21 09/17/24 03:12 09/17/24 02:45 09/17/24 02:36 09/17/24 02:30 09/17/24 02:30 09/17/24 02:09 09/17/24 02:00 09/17/24 02:00 09/17/24 01:54 09/17/24 01:45 09/17/24 01:45 09/17/24 01:45 09/17/24 01:34 09/17/24 01:30 09/17/24 01:30 09/17/24 01:16 09/17/24 01:15 09/17/24 01:15 09/17/24 01:15 09/17/24 01:03 09/17/24 01:00 09/17/24 01:00 09/17/24 00:54 09/17/24 00:45 09/17/24 00:45 09/17/24 00:30 09/17/24 00:30 09/17/24 00:30 09/17/24 00:21 09/17/24 00:00 09/16/24 23:54 09/16/24 23:42 09/16/24 23:34 09/16/24 23:34 09/16/24 23:33 09/16/24 23:33 09/16/24 23:30 09/16/24 23:24 09/16/24 23:21 09/16/24 23:03 09/16/24 23:00 Diagnostic Findings Abdomen/Pelvis CT 09/12/24 11:20 CT abd pelvis IV con only CLINICAL HISTORY: ab pain, WBC 17 TECHNIQUE: Helical axial images of the abdomen and pelvis were obtained and displayed. Automated dose lowering techniques and/or adjustment according to patient size were utilized for this exam. This exam was performed with intravenous contrast. CT DOSE: 804.66 mGy.cm COMPARISON: Comparison is made to CT abdomen pelvis 06/22/2023 FINDINGS: Lower chest: Bibasilar atelectasis versus scarring is seen. Liver: Unremarkable. No focal lesions are seen. Gallbladder and biliary tree: No calcified gallstones. Normal caliber wall. No intra- or extrahepatic biliary ductal dilation. Pancreas: A 21 mm pancreatic cystic lesion is seen. Fatty replacement is noted. Spleen: Splenomegaly is seen with a few splenule is noted. Adrenals: Unremarkable. Kidneys and ureters: Numerous simple appearing renal cysts are seen, one with a calcification. Bladder: Mora catheter is seen. A bladder stone is seen. Reproductive organs: Unremarkable. Bowel: Diverticulosis is seen without diverticulitis. The appendix is normal. Duodenal wall thickening and fat stranding is seen. Lymph nodes Retroperitoneal: Unremarkable. Pelvic: Unremarkable. Mesenteric: Unremarkable. Peritoneum: Normal. Vessels: Atherosclerotic calcifications are seen. 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 Abdominal wall: Right fat-containing inguinal hernia. Bones: Degenerative changes in the visualized spine. IMPRESSION: 1. Fat stranding and wall thickening about the duodenum compatible for duodenitis. 2. Pancreatic body cystic lesion likely represents IPMN. 3. Numerous renal cysts are seen. 4. Diverticulosis without diverticulitis. ACT 112: Negative or not required by law. Electronically signed by: Davis Benton M.D. 09/12/2024 12:25 PM Abdomen/Pelvis CTA 09/16/24 13:38 CT angiogram abd pelvis IV con only CLINICAL HISTORY: Abdominal pain TECHNIQUE: Helical axial images of the abdomen and pelvis were obtained and displayed. Automated dose lowering techniques and/or adjustment according to patient size were utilized for this exam. This exam was performed with intravenous contrast. COMPARISON: 09/12/2024 FINDINGS: Lower chest: There are new small pleural effusions bilaterally, with subjacent compressive atelectasis. Mild basilar and peripheral interstitial lung disease superimposed is also again seen. Liver: Unremarkable. No focal lesions are seen. Gallbladder and biliary tree: No calcified gallstones. Normal caliber wall. No intra- or extrahepatic biliary ductal dilation. Pancreas: A 21 mm pancreatic cystic lesion is seen. Fatty replacement is noted. Spleen: The spleen is absent. A few splenule's are seen Adrenals: Unremarkable. Kidneys and ureters: Numerous simple appearing renal cysts are seen, one with a calcification. Bladder: Mora catheter is seen. A bladder stone is seen. Reproductive organs: Unremarkable. Bowel: Diverticulosis is seen without diverticulitis. The appendix is normal. No bowel obstruction. There is a large volume of stool in the rectum. Lymph nodes: No pathologic lymphadenopathy. Retroperitoneal: Unremarkable. Pelvic: Unremarkable. Mesenteric: Unremarkable. Peritoneum: Normal. No significant free fluid. Vessels: Mild atherosclerotic calcifications are seen. Infrarenal mild dilation of the aorta measures 26 mm. No dissection. The major branch vessels, including the renal arteries, celiac artery, SMA, and ALEXUS are patent. The iliac arteries and proximal femoral arteries appear patent. Abdominal wall: Right fat-containing inguinal hernia. Bones: Degenerative changes in the visualized spine. IMPRESSION: 1. No acute aortic pathology of the abdomen and pelvis. No dissection. Focal mild dilation of the infrarenal abdominal aorta, as above. 2. Pancreatic body cystic lesion likely represents IPMN. 3. There are new small pleural effusions, and new pulmonary edema. Mild superimposed interstitial lung disease again seen at the lung bases. Electronically signed by Dioni Hightower 09-16-2024 4:47 PM (1) GI bleeding GI bleed type/associated pathology: unspecified gastrointestinal hemorrhage type Qualified Code(s): K92.2 - Gastrointestinal hemorrhage, unspecified
--- NOTE | 2024-09-17 11:02 | Ultrasound Report ---
ULTRASOUND LEFT UPPER EXTREMITY VENOUS CLINICAL HISTORY: Acute pain and swelling of the left upper extremity. COMPARISON STUDY: None. TECHNIQUE: Real-time, grayscale, and color Doppler sonography of the deep veins of the left upper ext remity is performed. Compression and augmentation were utilized. FINDINGS: Subcutaneous edema. Occlusive thrombus is noted within the basilic and cephalic veins appea r to extend for a length of at least 5 cm. No deep venous thrombus identified. IMPRESSION: 1. No deep venous thrombus identified. 2. Superficial venous thrombi, likely acute. ACT 112: Negative or not required by law. Electronically signed by: Conrado Azul M.D. 09/17/2024 11:01 AM
--- NOTE | 2024-09-17 11:14 | Pharmacy Report ---
Pharmacy Glycemic Short Note 2 - Date of Service September 17, 2024 - Glycemic Short BSG Results (Last 24 hours): 09/16/24 09/16/24 09/16/24 11:10 16:16 20:13 Glucose POC Glucose 174 H 160 H 140 H 09/17/24 09/17/24 03:34 07:42 Glucose 133 H POC Glucose 175 H OUTPATIENT ANTIDIABETIC REGIMEN: * N/A HbA1c: 8.3% (09/12/24) ASSESSMENT: 09/17: * Patient received 25 units of insulin yesterday, 10 of which were basal. BSGs were: 973-159-761-140 mg/dL. * Fasting BSG this AM was 175 mg/dL. Fastings have now trended up for three consecutive days. Patient is NPO today for a colonoscopy so will leave basal at 10 units this AM with hope that 10 units while NPO will help fasting trend down towards goal. Consideration should be given to increasing basal dose tomorrow AM if diet is resumed. * No changes to Novolog today. Abx have been discontinued. 09/14: * Ronaldo received 2 units of insulin yesterday, all bolus. BSGs were: [phone] mg/dL. * Fasting BSG up to 209 mg/dL this AM. Will give basal 0.2 units/kg this AM. Tolerating a T2DM diet. * Underwent EGD + Colonoscopy last evening. Protonix has been changed to PO. * Plan to tighten both carb ratio and correction factor this AM given hyperglycemia. 09/12: * WK is an 84 year old male admitted on 09/12/24 with concern of lower GI bleed w/ rectal bleeding * Blood sugar greater than 300 mg/dL on presentation * Given IV insulin bolus + D50W bolus in ED due to hyperkalemia * Patient w/ known history of pre-diabetes, but now with HbA1c of 8.3% * Pharmacy consulted for glycemic management in light of hyperglycemia and being insulin naive * Blood sugar of 255 mg/dL at this time - will utilize SC basal/bolus regimen at this time * Colonoscopy scheduled for tomorrow morning - NPO PLAN FOR INPATIENT GLYCEMIC CONTROL: * Basal insulin * Lantus 10 units SC daily * Bolus insulin * NovoLog per scale ACHS or Q6hrs while NPO * Goal Range: Low 110 mg/dL - High 140 mg/dL * Correction Factor: 40 mg/dL/unit * Nutritional / Prandial insulin per carb ratio of 1 unit per 12 grams CHO consumed
[2024-09-17 14:34] LABS: Hematocrit (blood only) 25.4 % (42.0-52.0); Hemoglobin 8.8 g/dl (14.0-18.0)
--- NOTE | 2024-09-17 14:57 | Anesthesiology Consultation ---
Date of Service September 17, 2024 Assessment & Plan (1) Encounter for pre-operative examination: Chart Review Chart Review: Acceptable Risk for Surgery and Patient NOT seen in Pre Admission Testing Consults Requested none History Surgery Operation Date: 09/13/24 16:30 Proposed Procedures p Colonoscopy EGD Dr. Dre Erickson MD Operation Date: 09/17/24 16:55 Proposed Procedures p Colonoscopy Dr. Ramana Boles MD Height/Weight Height: 5 ft 6 in Weight: 73.7 kg Allergies Allergy/AdvReac Type Severity Reaction Status Date / Time No Known Allergies Allergy Unverified 05/22/24 07:52 Medications Home Medications Medication Instructions Recorded Confirmed Last Taken atorvastatin 40 mg tablet 40 mg PO HS 12/06/18 09/12/24 Unknown tamsulosin 0.4 mg capsule 0.4 mg PO HS 12/06/18 09/12/24 Unknown dutasteride 0.5 mg capsule 0.5 mg PO DAILY #90 caps 07/08/23 09/12/24 Unknown (Avodart) lisinopril 20 mg tablet 20 mg PO DAILY 09/12/24 09/12/24 Unknown Active Medications Generic Name Dose Route Start Last Admin Trade Name Freq PRN Reason Stop Dose Admin Finasteride 5 mg 09/13/24 09:00 09/17/24 08:54 Finasteride 5 Mg Tab PO 10/13/24 08:59 Not Given DAILY FATIMAH Pantoprazole Sodium 40 mg in 10 mls @ 5 mls/min 09/17/24 09:00 09/17/24 09:11 Protonix IV 10/17/24 08:59 5 mls/min BID FATIMAH Administration Insulin Aspart 0 units 09/17/24 07:34 09/17/24 12:13 Insulin Aspart Per Unit Charge SC 10/13/24 16:29 1 units Q6 FATIMAH Administration Insulin Glargine 10 units 09/15/24 09:00 09/17/24 09:31 Lantus Per Unit Charge IN 10/15/24 08:59 10 units DAILY FATIMAH Administration Magnesium Oxide 400 mg 09/14/24 09:00 09/17/24 08:54 Magnesium Oxide 400 Mg Tab PO 10/14/24 08:59 Not Given BID FATIMAH Miscellaneous 1 each 09/13/24 08:59 09/17/24 09:09 Remove Nicoderm Patch N/A 10/13/24 08:58 1 each DAILY@0859 FATIMAH Administration Miscellaneous 1 each 09/16/24 18:00 09/17/24 06:39 Icu Electrolyte Replacement Protocol N/A 09/23/24 17:59 1 each BID@06,18 FATIMAH Administration Protocol Nicotine 1 patch 09/12/24 18:30 09/17/24 09:32 Nicotine 7 Mg/24 Hr Tdsy TD 10/12/24 18:29 1 patch QAM FATIMAH Administration Potassium Phosphate 2 tab 09/14/24 09:00 09/17/24 12:16 Pot Phosphate Monobasic W/ Sod Tab PO 10/14/24 08:59 Not Given QID FATIMAH Tamsulosin HCl 0.4 mg 09/12/24 21:00 09/16/24 20:31 Tamsulosin Hcl 0.4 Mg Cap PO 10/12/24 20:59 0.4 mg HS FATIMAH Administration NPO Date Last Intake of Fluids: 09/17/24 Time Last Intake of Fluids: 12:00 Date Last Intake of Solids: 09/16/24 Time Last Intake of Solids: 08:00 Past Medical History Medical History (Updated 09/17/24 @ 15:01 by Anibal Zhang MD) Encounter for pre-operative examination Diverticular hemorrhage GI bleeding Stomach ulcer Diabetes Past Family History Family History Other No significant family history Past Surgical History Surgical History (Updated 09/17/24 @ 14:57 by Anibal Zhang MD) S/P rotator cuff repair egd/colon 09/13/23 Social History Smoking Status: Current every day smoker Do You Dip or Chew Tobacco: Yes Hx Alcohol Use: No Hx Substance Use: No Physical Exam Vital Signs Last Vital Signs Temp 36.8 C 09/17/24 14:27 Pulse 84 09/17/24 14:27 Resp 16 09/17/24 14:27 BP 127/71 09/17/24 14:27 Pulse Ox 97 09/17/24 14:27 O2 Del Method Room Air 09/17/24 14:27 Testing Laboratory Results 09/17/24 14:16 09/17/24 03:34 PT 12.3 Seconds (9.0-12.0) H 09/16/24 15:49 INR 1.1 (0.9-1.1) 09/16/24 15:49 APTT 22 Seconds (21-31) 09/12/24 10:45 Hemoglobin A1c 8.3 % (4.5-5.6) H 09/12/24 12:23 Urine Color Yellow 09/12/24 17:55 Urine Appearance Turbid (Clear) A 09/12/24 17:55 Urine pH 5.0 (4.5-7.5) 09/12/24 17:55 Ur Specific [place] 1.040 (1.000-1.030) H 09/12/24 17:55 Urine Protein Negative (Negative) 09/12/24 17:55 Urine Glucose (UA) 2+ (Negative) H 09/12/24 17:55 Urine Ketones Negative (Negative) 09/12/24 17:55 Urine Nitrite Negative (Negative) 09/12/24 17:55 Ur Leukocyte Esterase 3+ (Negative) H 09/12/24 17:55 Urine WBC (Auto) >50 /hpf (0-5) H 09/12/24 17:55 Urine RBC (Auto) 6-10 /hpf (0-2) H 09/12/24 17:55 U Hyaline Cast (Auto) >20 /lpf (0-2) H 09/12/24 17:55 U Epithel Cells (Auto) 0-2 /hpf (0-2) 09/12/24 17:55 Urine Bacteria (Auto) 3+ (None Seen) H 09/12/24 17:55 Blood Type A Positive 09/16/24 12:44 Antibody Screen NEGATIVE 09/16/24 12:44 09/12/24 12:23 Aerobic Blood Culture - Final Blood No growth in Aerobic bottle after 5 days. Anaerobic Blood Culture - Final No growth in Anaerobic bottle after 5 days. 09/12/24 12:23 Aerobic Blood Culture - Final Blood No growth in Aerobic bottle after 5 days. Anaerobic Blood Culture - Final No growth in Anaerobic bottle after 5 days. 09/12/24 17:55 Urine Culture - Final Urine,Straight Cath Citrobacter freundii complex Enterococcus faecalis 09/17/24 09/17/24 12:08 07:42 POC Glucose 172 H 175 H 4 units pRBC's Electrocardiogram Date: 09/16/24 sinus tach with pvc's. rbbb.
--- NOTE | 2024-09-17 15:04 | Gastroenterology Progress Note ---
Date of Service September 17, 2024 Assessment & Plan (1) Diverticular hemorrhage: Plan: Likely diverticular bleeding. However persistent. Colonoscopy today. Post 2 L GoLytely. Lower GI bleeding can be difficult to identify due to obscuration from blood and numerous diverticuli all of which will have blood within them. A small Dula Dean's is notoriously difficult to find as may be a small AVM. Admission and Anticipated Discharge Date Admission Date: September 12, 2024 Subjective Continued persistent hematochezia. Probable diverticular. Previous colonoscopy hampered by poor preparation. We have tried to have him drink as much prep today prior to the procedure. He drank about 2 L of GoLytely. He still having ready stool. 11 colonoscopy to see if potentially we can identify a bleeding diverticulum or a alternative lesion to explain the bleeding such as an AVM or Dula Dean's type lesion. Review of Systems Review of Systems: Denies any abdominal pain at present chest pain or shortness of breath Physical Exam Physical Exam: Patient examined at the bedside alert and orientated x 3 Appears somewhat pale Benign abdominal exam Results & Data Results & Data Vital Signs (Past 12 Hours) Vital Signs Temp Pulse Pulse Resp BP BP Pulse Ox 09/17/24 14:27 36.8 C 84 16 127/71 97 09/17/24 14:00 77 18 131/66 97 09/17/24 13:00 82 20 102/57 L 100 09/17/24 12:52 36.5 C 79 15 133/70 99 09/17/24 12:18 36.5 C 76 14 128/71 97 09/17/24 11:18 36.6 C 100 H 18 124/70 100 09/17/24 10:48 36.6 C 98 H 22 135/74 97 09/17/24 10:32 36.5 C 84 21 114/74 97 09/17/24 10:17 89 23 112/70 98 09/17/24 08:00 113 H 20 102/67 93 09/17/24 07:00 36.8 C 90 18 120/69 94 09/17/24 06:00 117/59 L 09/17/24 05:57 85 20 94 09/17/24 05:45 87/62 L 09/17/24 05:45 89 19 92 09/17/24 05:30 106/54 L 09/17/24 05:27 85 18 92 09/17/24 05:15 104/54 L 09/17/24 05:15 104/54 L 09/17/24 05:09 84 19 94 09/17/24 05:00 118/62 09/17/24 04:54 80 20 92 09/17/24 04:45 111/64 09/17/24 04:45 111/64 09/17/24 04:30 114/59 L 09/17/24 04:18 88 20 92 09/17/24 04:15 110/58 L 09/17/24 04:15 110/58 L 09/17/24 04:15 110/58 L 09/17/24 04:03 93 H 25 H 92 09/17/24 04:00 93 H 24 92 09/17/24 04:00 114/60 09/17/24 04:00 114/60 09/17/24 04:00 114/60 09/17/24 03:46 112/59 L 09/17/24 03:46 112/59 L 09/17/24 03:45 93 H 20 90 09/17/24 03:30 135/75 09/17/24 03:21 112 H 26 H 92 09/17/24 03:12 92 H 22 94 O2 Del Method 09/17/24 14:27 Room Air 09/17/24 14:00 Room Air 09/17/24 13:00 Room Air 09/17/24 12:52 09/17/24 12:18 09/17/24 11:18 09/17/24 10:48 09/17/24 10:32 09/17/24 10:17 09/17/24 08:00 Room Air 09/17/24 07:00 Room Air 09/17/24 06:00 09/17/24 05:57 09/17/24 05:45 09/17/24 05:45 09/17/24 05:30 09/17/24 05:27 09/17/24 05:15 09/17/24 05:15 09/17/24 05:09 09/17/24 05:00 09/17/24 04:54 09/17/24 04:45 09/17/24 04:45 09/17/24 04:30 09/17/24 04:18 09/17/24 04:15 09/17/24 04:15 09/17/24 04:15 09/17/24 04:03 09/17/24 04:00 09/17/24 04:00 09/17/24 04:00 09/17/24 04:00 09/17/24 03:46 09/17/24 03:46 09/17/24 03:45 09/17/24 03:30 09/17/24 03:21 09/17/24 03:12 Laboratory Results Hemoglobin above 7 PG Care Time/CCT Total # of Minutes Spent Total Time Spent with Patient: Total time spent is greater than 50% in coordination of care (as documented) at patient's floor/unit and/or counseling patient: Coding Level of Care Code 77743 SUB INP/OBS CARE 09/29MIN Diagnoses Diverticular hemorrhage K57.31
--- NOTE | 2024-09-17 16:28 | GI REPORT ---
[facility] Patient: VINI JAMES : 1940 Sex at : Male Age: 84 Years Procedure: Colonoscopy Date: 09/17/2024 Attending Physician: Rafa Boles MD Referring MD: Miller Sanchez; Beth Jackson Md Indications: - Recurrent bleeding hematochezia suspected diverticular bleed for rescope Medications: - Monitored Anesthesia Care Complications: - No immediate complications. Estimated Blood Loss: - Estimated blood loss was minimal. Procedure: - The adult colonoscope was introduced through the anus and advanced to the terminal ileum, with identification of the appendiceal orifice and ileocecal valve. - The colonoscopy was somewhat difficult due to excessive bleeding. Successful completion of the procedure was aided by lavage. - The patient tolerated the procedure fairly well. - The quality of the bowel preparation was poor. Findings: - The perianal examination was normal. - Red blood was found in the entire colon. Lavage of the area was performed using copious amounts, resulting in clearance with fair visualization. - Multiple diverticula were found in the sigmoid colon. - The distal ileum contained red blood. Impression: - Preparation of the colon was poor. - Blood in the entire examined colon. - Diverticulosis in the sigmoid colon. - Blood in the distal ileum. - No specimens collected. - Blood throughout the colon. However there is significant madhavi of blood in the terminal ileum that persisted with further advancement into the ileum suggesting possibility of a small bowel or upper GI bleed. Plan will be for a urgent upper endoscopy post colonoscopy. Dr. Major was kind enough to sign a urgency consent in addition to me to facilitate this test. Patient was already sedated for his colonoscopy Recommendation: - Push enteroscopy upper endoscopy urgent Procedure Code(s): - 01519, Colonoscopy, flexible; diagnostic, including collection of specimen(s) by brushing or washing, when performed (separate procedure) Diagnosis Code(s): - K92.2, Gastrointestinal hemorrhage, unspecified - K57.30, Diverticulosis of large intestine without perforation or abscess without bleeding CPT(R) - 202 copyright [employer]. All Rights Reserved. The CPT codes, CCI edits and ICD codes generated are intended as suggestions and were generated based on input data. These codes are preliminary and upon cement sack breaker review may be revised to meet current compliance and payer requirements. The provider is responsible for the final determination of appropriate codes, and modifiers. Rafa Boles MD This document has been electronically signed. Note Initiated:09/17/2024 Note Completed:09/17/2024 4:28 PM \\[email or web address]\[email or web address]\Data\Provation\Results\LIVE\[id number].pdf
--- NOTE | 2024-09-17 16:34 | GI REPORT ---
[facility] Patient: VINI JAMES : 1940 Sex at : Male Age: 84 Years Procedure: Upper GI endoscopy Date: 09/17/2024 Attending Physician: Rafa Boles MD Referring MD: Miller Sanchez; Beth Jackson Md Indications: - Suspected upper gastrointestinal bleeding Medications: - Monitored Anesthesia Care Complications: Procedure: - The pediatric colonoscope was introduced through the mouth and advanced to the jejunum. - The upper GI endoscopy was performed with moderate difficulty. - The patient tolerated the procedure well. Findings: - The examined esophagus was normal. - Multiple small erosions were found in the gastric antrum. Biopsies were taken with a cold forceps for histology. Estimated blood loss was minimal. - The examined duodenum was normal. - One oozing cratered ulcer with adherent clot was found in the jejunum. The lesion was 18 mm in largest dimension. Area was successfully injected with 3 mL of a 0.1 mg/mL solution of epinephrine for hemostasis. Coagulation for hemostasis using bipolar probe was successful. Did attempt to place hemostatic clips of the angle to facilitate a proper approach to the ulcer to facilitate proper clip placement. Impression: - Normal esophagus. - Erosive gastropathy. Biopsied. - Normal examined duodenum. - Oozing jejunal ulcer with adherent clot Injected. Treated with bipolar cautery. - Did attempt to place hemostatic clips of the angle to facilitate a proper approach to the ulcer to facilitate proper clip placement. 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 All Rights Reserved. The CPT codes, CCI edits and ICD codes generated are intended as suggestions and were generated based on input data. These codes are preliminary and upon toys and games hand finisher review may be revised to meet current compliance and payer requirements. The provider is responsible for the final determination of appropriate codes, and modifiers. Rafa Boles MD This document has been electronically signed. Note Initiated:09/17/2024 Note Completed:09/17/2024 4:33 PM \\[email or web address]\Provation\Results\LIVE\[id number].pdf
[2024-09-17 17:47] LABS: Hematocrit (blood only) 23.6 % (42.0-52.0); Hemoglobin 8.1 g/dl (14.0-18.0)
[2024-09-17] MEDS: LIDOCAINE 2% 2 ML VIAL/AMP(20MG/ML) INFIL ONE (18:11)
[2024-09-17] MEDS: PROPOFOL IV EMULSION 10 MG/ML 20 ML VIAL IV ONE ×3 (18:11)
[2024-09-17] MEDS: GLYCOPYRROLATE 0.2 MG/ML VIAL ONE (18:12)
[2024-09-17] MEDS: ePHEDrine sulfate 50 MG/5 ML SYR ONE (18:12)
[2024-09-17 19:57] LABS: Magnesium 2.1 mg/dl (1.7-2.4); Phosphorus 2.9 mg/dl (2.5-4.9); Potassium 4.2 mmol/L (3.5-5.1)
--- NOTE | 2024-09-17 21:46 | Electrocardiogram Report ---
Test Reason : Blood Pressure : */* mmHG Vent. Rate : 110 BPM Atrial Rate : 110 BPM P-R Int : 162 ms QRS Dur : 140 ms QT Int : 374 ms P-R-T Axes : 29 266 65 degrees QTcB Int : 506 ms Poor data quality, interpretation may be adversely affected Sinus tachycardia with Premature supraventricular complexes Right bundle branch block Abnormal ECG When compared with ECG of 12-Sep-2024 10:47, Premature supraventricular complexes are now Present Confirmed by Mikey Abarca ([id number]) on 09/17/2024 9:46:25 PM Referred By: Miller SCI Confirmed By: Mikey Abarca
[2024-09-18 04:49] LABS: Hematocrit (blood only) 22.9 % (42.0-52.0); Hemoglobin 7.8 g/dl (14.0-18.0); Mean Corpuscular Hemoglobin 29.7 pg (25.0-34.0); Mean Corpuscular Hgb Conc 34.1 g/dL (32.0-36.0); Mean Corpuscular Volume 87.1 fL (80.0-100.0); Mean Platelet Volume 11.5 fL (9.4-12.4); Nucleated RBC # (auto) 0.05 K/uL (0.00-0.12); Nucleated RBC % (auto) 0.3 %; Platelet Count 192 K/uL (130-400); RDW Coefficient of Variation 15.7 % (11.5-14.5); RDW Standard Deviation 48.9 fL (36.4-46.3); Red Blood Count 2.63 M/uL (4.70-6.10)
[2024-09-18 05:08] LABS: BUN Creatinine Ratio 27.6 (10-20); Calcium 7.4 mg/dl (8.6-10.3); Creatinine Clr Calc Pharmacy 48.8 ml/min; Magnesium 2.2 mg/dl (1.7-2.4); Phosphorus 2.7 mg/dl (2.5-4.9); Potassium 4.3 mmol/L (3.5-5.1)
--- NOTE | 2024-09-18 10:16 | Critical Care Progress Note ---
Date of Service September 18, 2024 Assessment & Plan (1) GI bleeding: Plan Plan Impression: 84-year-old male admitted with findings concerning for upper GI bleed on EGD. Recommendations: 1. Neurologic no current issues. 2. Cardiovascular: Tachycardia resolved. Hemodynamically stable. Restart lisinopril later today or tomorrow if blood pressure continues to creep upwards. 3. GI: CTA negative. EGD with findings of gastropathy and jejunal ulcer. Status post bipolar cautery. Continue PPI. 4. Heme-onc: Continue to trend hemoglobin. No indications for blood transfusion at present time. Status post 4 units of packed RBCs earlier this admission. 5. Renal: ICU electrolyte replacement protocol. No significant issues. 6. ID: He was treated with 5 days of antibiotics for UTI. Patient asymptomatic from a urosepsis perspective. Doubtful of bacterial gastroenteritis. Will hold further antibiotics at this time. 7. Endocrine: Glycemic control per protocol. 8. Pulmonary: No current issues. Continue to follow clinically. Patient to be downgraded to PCU status at this time. Admission and Anticipated Discharge Date Admission Date: September 12, 2024 Subjective No episodes of rebleeding or melena this morning or overnight. Hemodynamically stable. Patient complains of being thirsty and hungry. Denies any dizziness, chest pain, shortness of breath or abdominal pain. Review of Systems Review of Systems: All systems reviewed & are unremarkable except as noted in HPI & below Physical Exam Constitutional: WD/WN, vitals as above Neck: trachea midline, no thyromegaly Respiratory: normal respiratory effort, lungs clear to auscultation Cardiovascular: Rate/Rhythm: + tachycardic Heart Sounds: normal S1 and normal S2; no murmur Extremities: + edema Gastrointestinal (Abdomen): Inspection/Auscultation: abdomen normal to inspection and normal bowel sounds Percussion/Palpation: abdomen nontender, no guarding and abdomen not rigid Musculoskeletal: Extremities: extremities normal to inspection (LUE edematous ) Skin: no rashes, warm and dry Neurologic: Nonfocal exam Lymphatic: no cervical lymphadenopathy Results & Data Results & Data Vital Signs (Past 12 Hours) Vital Signs Temp Pulse Pulse Resp BP BP Pulse Ox 09/18/24 09:00 69 18 127/67 94 09/18/24 08:00 75 17 134/64 93 09/18/24 07:00 36.6 C 73 22 113/50 L 97 09/18/24 01:26 81 20 140/82 O2 Del Method 09/18/24 09:00 Room Air 09/18/24 08:00 Room Air 09/18/24 07:00 Room Air 09/18/24 01:26 Coding Level of Care Code 93316 SUB INP/OBS CARE 2/35MIN Diagnoses GI bleeding K92.2 GI bleed type/associated pathology: unspecified gastrointestinal hemorrhage type (1) GI bleeding GI bleed type/associated pathology: unspecified gastrointestinal hemorrhage type Qualified Code(s): K92.2 - Gastrointestinal hemorrhage, unspecified
[2024-09-18] MEDS: LANTUS PER UNIT CHARGE SC SCH (10:31)
--- NOTE | 2024-09-18 10:40 | Pharmacy Report ---
Pharmacy Glycemic Short Note 2 - Date of Service September 18, 2024 - Glycemic Short BSG Results (Last 24 hours): 09/17/24 09/17/24 09/18/24 12:08 18:14 04:27 Glucose 109 H POC Glucose 172 H 125 H 09/18/24 10:19 Glucose POC Glucose 118 H OUTPATIENT ANTIDIABETIC REGIMEN: * N/A HbA1c: 8.3% (09/12/24) ASSESSMENT: 09/18 * Patient remained NPO this AM. T2DM/clear liquid diet started w lunch. Possible downgrade from ICU status today. * AM fasting w notable trend down after patient was NPO most of yesterday and this AM. Slight reduction in Lantus today. Anticipate possible increase back tomorrow now that diet has been resumed and patient may no longer require higher goal for ICU status patient * Correctional insulin given yesterday managed BSG's well. No change to Novolog 09/17: * Patient received 25 units of insulin yesterday, 10 of which were basal. BSGs were: [phone] mg/dL. * Fasting BSG this AM was 175 mg/dL. Fastings have now trended up for three consecutive days. Patient is NPO today for a colonoscopy so will leave basal at 10 units this AM with hope that 10 units while NPO will help fasting trend down towards goal. Consideration should be given to increasing basal dose tomorrow AM if diet is resumed. * No changes to Novolog today. Abx have been discontinued. 09/14: * Ronaldo received 2 units of insulin yesterday, all bolus. BSGs were: 11 [phone] mg/dL. * Fasting BSG up to 209 mg/dL this AM. Will give basal 0.2 units/kg this AM. Tolerating a T2DM diet. * Underwent EGD + Colonoscopy last evening. Protonix has been changed to PO. * Plan to tighten both carb ratio and correction factor this AM given hyperglycemia. 09/12: * WK is an 84 year old male admitted on 09/12/24 with concern of lower GI bleed w/ rectal bleeding * Blood sugar greater than 300 mg/dL on presentation * Given IV insulin bolus + D50W bolus in ED due to hyperkalemia * Patient w/ known history of pre-diabetes, but now with HbA1c of 8.3% * Pharmacy consulted for glycemic management in light of hyperglycemia and being insulin naive * Blood sugar of 255 mg/dL at this time - will utilize SC basal/bolus regimen at this time * Colonoscopy scheduled for tomorrow morning - NPO PLAN FOR INPATIENT GLYCEMIC CONTROL: * Basal insulin * Lantus 8 units SC daily * Bolus insulin * NovoLog per scale ACHS or Q6hrs while NPO * Goal Range: Low 110 mg/dL - High 140 mg/dL * Correction Factor: 40 mg/dL/unit * Nutritional / Prandial insulin per carb ratio of 1 unit per 12 grams CHO consumed
--- NOTE | 2024-09-18 10:53 | Gastroenterology Progress Note ---
Date of Service September 18, 2024 Assessment & Plan (1) GI bleeding: Plan: No further bleeding noted at this time. He would be better served at a center with IR intervention if there are any signs of rebleeding. - would follow hgb/hct, transfuse as needed. - clear liquid diet being attempted. - continue with protonix 40mg IV BID. Admission and Anticipated Discharge Date Admission Date: September 12, 2024 Supervising Physician Co-Signing Physician Notes Is a distal duodenal proximal jejunal ulcer with visible vessel. Injected with epinephrine and cauterized. Currently appears to have hemostasis hemoglobin relatively stable. No further bowel movements. Patient however he remains at risk of recurrent bleeding which will typically occur within 48 to 72 hours. Ideally we would have interventional radiology backup. If this can be facilitated with transfer to another institution I would recommend that. If not he should remain on PPI therapy here with close observation over the next 2 days. Subjective no further bleeding noted per patient or nursing. hgb slightly lower at 7.8 (previously 8.1). EGD yesterday had shown Erosive gastropathy. Oozing jejunal ulcer with adherent clot Injected. Treated with bipolar cautery. attempted to place hemostatic clips of the angle to facilitate a proper approach to the ulcer to facilitate proper clip placement. Review of Systems Review of Systems: All systems reviewed & are unremarkable except as noted in HPI & below Physical Exam Respiratory: normal respiratory effort. Gastrointestinal (Abdomen): normal bowel sounds, soft, nontender. Results & Data Results & Data Vital Signs (Past 12 Hours) Vital Signs Temp Pulse Pulse Resp BP BP Pulse Ox 09/18/24 09:00 69 18 127/67 94 09/18/24 08:00 75 17 134/64 93 09/18/24 07:00 97.9 F 73 22 113/50 L 97 09/18/24 01:26 81 20 140/82 O2 Del Method 09/18/24 09:00 Room Air 09/18/24 08:00 Room Air 09/18/24 07:00 Room Air 09/18/24 01:26 Coding Level of Care Code 09754 SUB INP/OBS CARE 09/29MIN Diagnoses GI bleeding K92.2 GI bleed type/associated pathology: unspecified gastrointestinal hemorrhage type (1) GI bleeding GI bleed type/associated pathology: unspecified gastrointestinal hemorrhage type Qualified Code(s): K92.2 - Gastrointestinal hemorrhage, unspecified
[2024-09-18] MEDS: INSULIN ASPART PER UNIT CHARGE SC SCH (12:00)
--- NOTE | 2024-09-18 12:18 | Hospitalist Progress Note ---
Date of Service September 18, 2024 Assessment & Plan (1) Abdominal pain: (2) Hyperkalemia: (3) Hyperglycemia: Plan This is an 84-year-old incarcerated male who has significant past medical history of HTN, HLD, urinary retention and bilateral hydronephrosis with chronic Mora catheter in place who presents to ED secondary to bright red blood per rectum as well as abdominal pain for the past few days. Rectal Bleeding Acute Blood Loss Anemia Abdominal pain Possible Duodenitis Anal Mass Pt presented with rectal bleeding Hemoglobin dropped acutely from 12.4-9.[address] abdomen pelvis noting possible duodenitis GI consulted, recommended or stated the following: -Status post EGD and colonoscopy on September 13, 2024 -Anal mass noted for which GI recommends colorectal follow-up as an outpatient -many diverticula noted -Noted blood in the sigmoid colon and in the descending colon, GI noting suspicious for diverticular bleed -Multiple biopsies taken from the gastric antrum and gastric body, pending Continue to monitor H&H- currently downtrended but stable Will need colorectal follow-up after discharge 09/16/24- Patient with drop of hemoglobin from 7.0 this morning to 5 range on repeat. Patient hypotensive and tachycardic. given a fluid bolus and ordered transfused [address] angio of the abdomen ordered per recommendations of GI and Wave Soldering Machine Operator was consulted for transfer. Patient was transferred to the ICU for further evaluation and management. 09/17/24- patient currently awaiting colonoscopy and/or EGD. Has since been transfused 3 units of blood with rise in hemoglobin from 5 to 8 range before downtrending to 7.5 again this morning. Hemodynamically stable at this time. 09/18- had EGD and colonoscopy done on the that noted 1 oozing cratered ulcer with adherent clot in the jejunum with hemostasis achieved with epinephrine and cauterization. per GI patient remains at risk of recurrent bleeding which can occur within 48 to 72 hours. Noting that if there is a rebleed will need to be transferred for interventional radiology services. Continue IV Protonix 40 mg twice a day and a clear liquid diet at this time. Will continue to monitor and trend his hemoglobin and hematocrit. monitor for another 48 hours. Sepsis Complicated urinary tract infection Patient presented hypotensive and tachycardic, with chronic leukocytosis Lactate elevated with downtrend after fluid resuscitation UA suggestive of infection, urine culture grew E faecalis and Citrobacter IV Rocephin switched to cefepime and daptomycin Adjust antibiotics based on culture sensitivities once available Follow blood cultures, no growth to date Continue to monitor 09/16/24- switched to Unasyn in the ICU 09/17/24- abx discontinued in the ICU Hyperkalemia Initial K was 6.7 s/p Calcium Gluconate, Dextrose and IV insulin EKG with normal sinus rhythm with right bundle branch block currently within normal limits Continue to monitor Improved DMII hemoglobin A1c of 8.3 Basal bolus per protocol Will need outpatient follow-up as this is a new diagnosis for for patient Continue to monitor 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 Abnormal UA/Possible UTI follows with [facility], exchanges on the of each month exchanged on admission IPMN Renal Cysts Noted on imaging Will need follow-up outpatient diet: DM2, safety tray DVT ppx: SCDS in setting of acute GI bleed dispo: Return to [facility] once medically stable Admission and Anticipated Discharge Date Admission Date: September 12, 2024 Subjective patient was seen while still down in the ICU No further episodes of bleeding after he had cauterization done yesterday Denies any shortness of breath, chest pain, dizziness Downgraded from the ICU Review of Systems Review of Systems: All systems reviewed & are unremarkable except as noted in Subjective Physical Exam Physical Exam: General: Alert, oriented. HEENT: NC/AT CV: RRR Resp: Breath sounds clear bilaterally, no increased effort of breathing Abdomen: Soft, nontender Extremities: No edema in lower extremities bilaterally. Results & Data Results & Data Vital Signs (Past 12 Hours) Vital Signs Temp Pulse Pulse Resp BP BP Pulse Ox 09/18/24 12:00 36.5 C 96 H 22 130/69 94 09/18/24 09:00 69 18 127/67 94 09/18/24 08:00 75 17 134/64 93 09/18/24 07:00 36.6 C 73 22 113/50 L 97 09/18/24 01:26 81 20 140/82 O2 Del Method 09/18/24 12:00 Room Air 09/18/24 09:00 Room Air 09/18/24 08:00 Room Air 09/18/24 07:00 Room Air 09/18/24 01:26
--- NOTE | 2024-09-18 15:04 | Communication Note ---
Date of Service: September 18, 2024 Patient no seen and examined, chart reviewed EGD showed bleeding jejenual ulceration s/p epi injection and clipping. Hemodynamically stable, advancing d iet, downgrading out of ICU. No surgical issues, our team will sign off.
--- NOTE | 2024-09-18 22:29 | Electrocardiogram Report ---
Test Reason : Blood Pressure : */* mmHG Vent. Rate : 108 BPM Atrial Rate : 108 BPM P-R Int : 158 ms QRS Dur : 128 ms QT Int : 370 ms P-R-T Axes : * -79 143 degrees QTcB Int : 495 ms Sinus tachycardia with occasional Premature ventricular complexes Left axis deviation Right bundle branch block T wave abnormality, consider lateral ischemia Abnormal ECG When compared with ECG of 12-Sep-2024 10:47, Premature ventricular complexes are now Present Premature supraventricular complexes are no longer Present T wave inversion now evident in Lateral leads Confirmed by Mikey Abarca ([id number]) on 09/18/2024 10:28:49 PM Referred By: Miller BOOTH Confirmed By: Mikey Abarca
[2024-09-19 06:30] LABS: Hemoglobin 8.4 g/dl (14.0-18.0); Mean Corpuscular Hemoglobin 29.4 pg (25.0-34.0); Mean Corpuscular Hgb Conc 33.6 g/dL (32.0-36.0); Mean Corpuscular Volume 87.4 fL (80.0-100.0); Mean Platelet Volume 10.8 fL (9.4-12.4); Nucleated RBC # (auto) 0.04 K/uL (0.00-0.12); Nucleated RBC % (auto) 0.3 %; Platelet Count 247 K/uL (130-400); RDW Coefficient of Variation 15.3 % (11.5-14.5); RDW Standard Deviation 48.4 fL (36.4-46.3); Red Blood Count 2.86 M/uL (4.70-6.10)
[2024-09-19 06:53] LABS: BUN Creatinine Ratio 20.7 (10-20); Calcium 7.8 mg/dl (8.6-10.3); Magnesium 2.1 mg/dl (1.7-2.4); Phosphorus 3.6 mg/dl (2.5-4.9); Potassium 3.8 mmol/L (3.5-5.1)
[2024-09-19] MEDS: LANTUS PER UNIT CHARGE SC SCH (09:59)
--- NOTE | 2024-09-19 10:41 | Pharmacy Report ---
Pharmacy Glycemic Short Note 2 - Date of Service September 19, 2024 - Glycemic Short BSG Results (Last 24 hours): 09/18/24 09/18/24 09/18/24 11:11 16:06 21:16 Glucose POC Glucose 130 H 97 96 09/19/24 09/19/24 06:02 07:28 Glucose 111 H POC Glucose 114 H OUTPATIENT ANTIDIABETIC REGIMEN: * N/A HbA1c: 8.3% (09/12/24) ASSESSMENT: 09/19 * Quantitative stressors stable, although question if decreased physiologic stress from more stable clinical status is contributing to increased insulin sensitivity as compared to earlier this admission * Two BSG's below goal yesterday, although not hypoglycemic. One was post- prandial. AM fasting BSG wnl. * Will keep same total daily max dose of Lantus, but split BID and add hold parameters for BSG below goal * Will loosen Novolog and increase goal range to prevent overcorrection 09/18 * Patient remained NPO this AM. T2DM/clear liquid diet started w lunch. Possible downgrade from ICU status today. * AM fasting w notable trend down after patient was NPO most of yesterday and this AM. Slight reduction in Lantus today. Anticipate possible increase back tomorrow now that diet has been resumed and patient may no longer require higher goal for ICU status patient * Correctional insulin given yesterday managed BSG's well. No change to Novolog 09/17: * Patient received 25 units of insulin yesterday, 10 of which were basal. BSGs were: 121-601-420-140 mg/dL. * Fasting BSG this AM was 175 mg/dL. Fastings have now trended up for three consecutive days. Patient is NPO today for a colonoscopy so will leave basal at 10 units this AM with hope that 10 units while NPO will help fasting trend down towards goal. Consideration should be given to increasing basal dose tomorrow AM if diet is resumed. * No changes to Novolog today. Abx have been discontinued. 09/14: * Ronaldo received 2 units of insulin yesterday, all bolus. BSGs were: 779-758-660-134 mg/dL. * Fasting BSG up to 209 mg/dL this AM. Will give basal 0.2 units/kg this AM. Tolerating a T2DM diet. * Underwent EGD + Colonoscopy last evening. Protonix has been changed to PO. * Plan to tighten both carb ratio and correction factor this AM given hyperglycemia. 09/12: * WK is an 84 year old male admitted on 09/12/24 with concern of lower GI bleed w/ rectal bleeding * Blood sugar greater than 300 mg/dL on presentation * Given IV insulin bolus + D50W bolus in ED due to hyperkalemia * Patient w/ known history of pre-diabetes, but now with HbA1c of 8.3% * Pharmacy consulted for glycemic management in light of hyperglycemia and being insulin naive * Blood sugar of 255 mg/dL at this time - will utilize SC basal/bolus regimen at this time * Colonoscopy scheduled for tomorrow morning - NPO PLAN FOR INPATIENT GLYCEMIC CONTROL: * Basal insulin * Lantus 0-4 units SC BID * Bolus insulin * NovoLog per scale ACHS or Q6hrs while NPO * Goal Range: Low 120 mg/dL - High 150 mg/dL * Correction Factor: 45 mg/dL/unit * Nutritional / Prandial insulin per carb ratio of 1 unit per 15 grams CHO consumed
--- NOTE | 2024-09-19 11:15 | Gastroenterology Progress Note ---
Date of Service September 19, 2024 Assessment & Plan (1) Rectal bleeding: Plan Patient has started to have further rectal bleeding. currently hemodynamically stable. I reached out to Dr. Do with the hospitalist team as the patient will need transfer to a center with IR. - follow hgb/hct. new hgb pending. transfuse as needed. Admission and Anticipated Discharge Date Admission Date: September 12, 2024 Subjective Patient had a large bloody bowel movement about 1 hour ago. blood was bright red. hgb today 8.4 (was 7.8). Currently hemodynamically stable. Review of Systems Review of Systems: All systems reviewed & are unremarkable except as noted in HPI & below Physical Exam Constitutional: WD/WN, vitals as above Respiratory: normal respiratory effort, lungs clear to auscultation Cardiovascular: Rate/Rhythm: regular rate and regular rhythm Gastrointestinal (Abdomen): normal bowel sounds, soft, nontender, no hepatosplenomegaly Psychiatric: Orientation: alert and oriented x 3 Affect: euthymic affect Results & Data Results & Data Vital Signs (Past 12 Hours) Vital Signs Temp Pulse Resp BP Pulse Ox O2 Del Method 09/19/24 11:04 98.1 F 83 18 158/108 H 98 Room Air 09/19/24 07:30 98.4 F 95 H 18 121/87 98 Room Air 09/19/24 02:47 98.2 F 100 H 18 138/79 96 Room Air Coding Level of Care Code 30776 SUB INP/OBS CARE 2/35MIN Diagnoses Rectal bleeding K62.5
[2024-09-19 11:16] LABS: Hematocrit (blood only) 23.7 % (42.0-52.0)
--- NOTE | 2024-09-19 13:42 | Hospitalist Progress Note ---
Date of Service September 19, 2024 Assessment & Plan (1) Acute ulcer of stomach & intestines with bleeding/perforation: Plan: Clinically his blood per rectum this morning is concerning for a rebleed. Typically rebleeding occurs in the first 24 to 48 hours following endoscopic therapy and he is in that window. The ulcer is ligament of Treitz proximal jejunum which is a difficult approach endoscopically and was not amenable to endoscopic clipping. He did undergo endoscopic coagulation. At this point I think his best bet for control in event of continued or hemodynamically significant bleeding would be interventional radiology embolization. To facilitate that in the event of a serious rebleed patient should be transferred. (2) Abdominal pain: (3) Hyperkalemia: (4) Hyperglycemia: Plan This is an 84-year-old incarcerated male who has significant past medical history of HTN, HLD, urinary retention and bilateral hydronephrosis with chronic Mora catheter in place who presents to ED secondary to bright red blood per rectum as well as abdominal pain for the past few days. Rectal Bleeding Acute Blood Loss Anemia Abdominal pain Anal Mass Pt presented with rectal bleeding Hemoglobin dropped acutely from 12.4-9.[address] abdomen pelvis noting possible duodenitis GI consulted, recommended or stated the following: -Status post EGD and colonoscopy on September 13, 2024 -Anal mass noted for which GI recommends colorectal follow-up as an outpatient -many diverticula noted -Noted blood in the sigmoid colon and in the descending colon, GI noting suspicious for diverticular bleed -Multiple biopsies taken from the gastric antrum and gastric body, pending Continue to monitor H&H- currently downtrended but stable 09/16/24- Patient with drop of hemoglobin from 7.0 this morning to 5 range on repeat. Patient hypotensive and tachycardic. Given a fluid bolus and ordered transfused [address] angio of the abdomen ordered per recommendations of GI and Tax Accountant was consulted for transfer. Patient was transferred to the ICU for further evaluation and management. 09/17/24- patient currently awaiting colonoscopy and/or EGD. Has since been transfused 3 units of blood with rise in hemoglobin from 5 to 8 range before downtrending to 7.5 again this morning. Hemodynamically stable at this time. 09/18- had EGD and colonoscopy done on the that noted 1 oozing cratered ulcer with adherent clot in the jejunum with hemostasis achieved with epinephrine and cauterization. Per GI patient remains at risk of recurrent bleeding which can occur within 48 to 72 hours. Hemoglobin remains stable as of this morning to 8.4 The patient has had a big bloody bowel movement with feeling of weakness and tiredness. The GI advised the patient to be transferred to tertiary care center for IR intervention Repeat hemoglobin was 8.0. Discussed with the transfer center and advised to have a CTA and awaiting acceptance as of now Sepsis Complicated urinary tract infection Patient presented hypotensive and tachycardic, with chronic leukocytosis Lactate elevated with downtrend after fluid resuscitation UA suggestive of infection, urine culture grew E faecalis and Citrobacter IV Rocephin switched to cefepime and daptomycin Adjust antibiotics based on culture sensitivities once available Follow blood cultures, no growth to date Continue to monitor 09/16/24- switched to Unasyn in the ICU 09/17/24- abx discontinued in the ICU No evidence of infection at this time Hyperkalemia Initial K was 6.7 s/p Calcium Gluconate, Dextrose and IV insulin EKG with normal sinus rhythm with right bundle branch block currently within normal limits Continue to monitor Improved DMII hemoglobin A1c of 8.3 Basal bolus per protocol Will need outpatient follow-up as this is a new diagnosis for for patient Continue to monitor 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 Abnormal UA/Possible UTI follows with [facility], exchanges on the of each month exchanged on admission Will put the Mora if he cannot pee normally IPMN Renal Cysts Noted on imaging Will need follow-up outpatient diet: DM2, safety tray DVT ppx: SCDS in setting of acute GI bleed dispo: Return to [facility] once medically stable Admission and Anticipated Discharge Date Admission Date: September 12, 2024 Subjective 09/19/2024 The patient was seen and examined in telemetry unit He has been asymptomatic since this morning but later on he has had a big bowel movement and there was fresh blood He has been feeling weak but no other symptoms Review of Systems Review of Systems: All systems reviewed and are unremarkable except as noted below Physical Exam Physical Exam: Lying in bed without any acute distress Constitutional: well developed and well nourished; not ill appearing Eyes: PERRL, conjunctivae normal, anicteric sclerae ENMT: external ear and nose normal, oropharynx normal Neck: trachea midline, no thyromegaly Respiratory: no respiratory distress Auscultation: lungs clear to auscultation bilaterally Cardiovascular: Rate/Rhythm: regular rate and regular rhythm; not tachycardic Heart Sounds: normal S1 and normal S2; no murmur Extremities: no edema Gastrointestinal (Abdomen): Inspection/Auscultation: normal bowel sounds; abdomen not distended Percussion/Palpation: abdomen soft; abdomen nontender Musculoskeletal: no acute arthritis involving any of the joint Neurologic: normal touch/pain/proprioception and moves all extremities; no focal motor deficits Lymphatic: no cervical or axillary lymphadenopathy Results & Data Results & Data Vital Signs (Past 12 Hours) Vital Signs Temp Pulse Resp BP Pulse Ox O2 Del Method 09/19/24 11:04 36.7 C 83 18 158/108 H 98 Room Air 09/19/24 07:30 36.9 C 95 H 18 121/87 98 Room Air 09/19/24 02:47 36.8 C 100 H 18 138/79 96 Room Air Laboratory Results Short CBC 09/19/24 09/19/24 Range/Units 06:02 10:58 WBC 13.00 H (4.8-10.8) K/ul Hgb 8.4 L 8.0 L (14.0-18.0) g/dl Hct 25.0 L 23.7 L (42.0-52.0) % Plt Count 247 (130-400) K/uL BMP 09/19/24 06:02 Sodium 140 Potassium 3.8 Chloride 108 H Carbon Dioxide 25 BUN 18 Creatinine 0.87 Glucose 111 H Calcium 7.8 L Medications Administered Current Inpatient Medications Acetaminophen (Acetaminophen 325 Mg Tab) 650 mg PO Q4H PRN PRN Reason: Pain or Fever Stop: 10/12/24 13:36 Dextrose (Dextrose 50% 50 Ml Syringe) 25 - 50 ml IV UD PRN; Protocol PRN Reason: Hypoglycemia Protocol Stop: 10/12/24 13:36 Finasteride (Finasteride 5 Mg Tab) 5 mg PO DAILY FATIMAH Stop: 10/13/24 08:59 Last Admin: 09/19/24 12:00 Dose: Not Given Glucagon (Glucagon For Inj 1 Mg Vial) 1 mg SQ UD PRN; Protocol PRN Reason: Hypoglycemia Protocol Stop: 10/12/24 13:36 Glucose (Glucose 40% Gel 15 Gm Tube) 15 - 30 gm PO UD PRN; Protocol PRN Reason: Hypoglycemia Protocol Stop: 10/12/24 13:36 Glucose (Glucose 10 Tab/Tube) 4 - 8 tab PO UD PRN; Protocol PRN Reason: Hypoglycemia Protocol Stop: 10/12/24 13:36 Pantoprazole Sodium (Protonix) 40 mg in 10 mls @ 5 mls/min IV BID [facility] Stop: 10/17/24 08:59 Last Admin: 09/19/24 09:58 Dose: 5 mls/min Insulin Aspart (Insulin Aspart Per Unit Charge) 0 units SC ACHS FATIMAH Stop: 10/18/24 11:29 Last Admin: 09/19/24 12:00 Dose: 3 units Insulin Glargine (Lantus Per Unit Charge) 0 units SC BID [facility]; Protocol Stop: 10/19/24 08:59 Last Admin: 09/19/24 09:59 Dose: 4 units Magnesium Oxide (Magnesium Oxide 400 Mg Tab) 400 mg PO BID [facility] Stop: 10/14/24 08:59 Last Admin: 09/19/24 12:00 Dose: Not Given Miscellaneous (Carbohydrates For Hypoglycemia ) 15 - 30 gm PO UD PRN PRN Reason: Hypoglycemia Protocol Stop: 10/12/24 13:36 Miscellaneous (Remove Nicoderm Patch) 1 each N/A DAILY@0859 [facility] Stop: 10/13/24 08:58 Last Admin: 09/19/24 09:58 Dose: 1 each Miscellaneous Information (Pharmacy Glycemic Mgmt Consult) 1 each N/A UD PRN PRN Reason: Consult Stop: 10/12/24 13:36 Nicotine (Nicotine 7 Mg/24 Hr Tdsy) 1 patch TD QAM [facility] Stop: 10/12/24 18:29 Last Admin: 09/19/24 09:56 Dose: 1 patch Ondansetron HCl (Ondansetron Inj 2 Mg/Ml 2 Ml Vial) 4 mg IV Q6H PRN PRN Reason: Nausea Stop: 10/12/24 13:36 Potassium Phosphate (Pot Phosphate Monobasic W/ Sod Tab) 2 tab PO QID [facility] Stop: 10/14/24 08:59 Last Admin: 09/19/24 12:18 Dose: Not Given Tamsulosin HCl (Tamsulosin Hcl 0.4 Mg Cap) 0.4 mg PO HS [facility] Stop: 10/12/24 20:59 Last Admin: 09/18/24 21:37 Dose: 0.4 mg
[2024-09-19] MEDS: OPTIRAY 320 100ml IV ONE (14:03)
--- NOTE | 2024-09-19 14:28 | CT Scan Report ---
CT angio abdomen pelvis w con CLINICAL HISTORY: R/O active bleeding TECHNIQUE: Multidetector row helical CT of the abdomen and pelvis was performed, following intravenou s administration of iodinated contrast. No oral contrast was administered. Automated dose lowering te chniques and/or adjustment according to patient size were utilized for this exam. Coronal and sagitta l reformations were obtained. MIP and 3D volume rendered reconstructions were obtained. CT DOSE: 774.78 mGy.cm Comparison: Comparison is made to CT abdomen pelvis 09/16/2024 FINDINGS: Lower chest: Interstitial thickening and trace bilateral pleural effusions are again seen. Liver: Unremarkable. No focal lesions are seen. Gallbladder and biliary tree: No calcified gallstones. Normal caliber wall. No intra- or extrahepatic biliary ductal dilation. Pancreas: Fatty replacement of the pancreas is seen. A 18 mm pancreatic cyst in the body may represen t an IPMN. 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 Adrenals: Unremarkable. Kidneys and ureters: Renal cysts are seen. Bladder: The dependent gas may represent recent instrumentation. Reproductive organs: Unremarkable. Bowel: Diverticulosis is seen without diverticulitis. The appendix is normal. There is a small amount of hyperdense material in the rectum. Lymph nodes Retroperitoneal: Unremarkable. Pelvic: Unremarkable. Mesenteric: Unremarkable. Peritoneum: Normal. Abdominal wall: Unremarkable. Bones: Degenerative changes in the visualized spine. CT angiogram: Infrarenal aortic aneurysm measures 25 mm. No significant atherosclerosis is seen. The origins of the celiac axis, superior mesenteric, inferior mesenteric and bilateral renal arteries are patent. IMPRESSION: 1. A tiny amount of hyperdense material in the rectum may represent a small amount of active GI blee ding. 2. Redemonstration of a pancreatic body cystic lesion compatible with IPMN. 3. Diverticulosis without diverticulitis. 4. Redemonstration of small pleural effusions with underlying interstitial lung disease. ACT 112: Negative or not required by law. Electronically signed by: Davis Benton M.D. 09/19/2024 2:26 PM
[2024-09-19] MEDS ORDERED: Nursing to Pharmacy Communication SCH ×2 (16:00→19:15)
[2024-09-19] MEDS: INSULIN ASPART PER UNIT CHARGE SC SCH ×2 (18:37→20:07)
[2024-09-20 06:50] LABS: Basophils # (auto) 0.07 K/uL (0.00-0.20); Basophils % (auto) 0.7 %; Eosinophils # (auto) 0.74 K/uL (0.00-0.50); Eosinophils % (auto) 7.1 %; Hematocrit (blood only) 24.4 % (42.0-52.0); Hemoglobin 8.1 g/dl (14.0-18.0); Immature Granulocytes # (auto) 0.03 K/uL (0.01-0.20); Immature Granulocytes % (auto) 0.3 %; Lymphocytes # (auto) 2.48 K/uL (1.20-3.40); Lymphocytes % (auto) 23.7 %; Mean Corpuscular Hemoglobin 29.1 pg (25.0-34.0); Mean Corpuscular Hgb Conc 33.2 g/dL (32.0-36.0); Mean Corpuscular Volume 87.8 fL (80.0-100.0); Mean Platelet Volume 11.2 fL (9.4-12.4); Monocytes # (auto) 1.18 K/uL (0.11-0.59); Monocytes % (auto) 11.3 %; Neutrophils # (auto) 5.96 K/uL (1.40-6.50); Neutrophils % (auto) 56.9 %; Nucleated RBC # (auto) 0.02 K/uL (0.00-0.12); Nucleated RBC % (auto) 0.2 %; Platelet Count 281 K/uL (130-400); RDW Coefficient of Variation 14.8 % (11.5-14.5); RDW Standard Deviation 47.1 fL (36.4-46.3); Red Blood Count 2.78 M/uL (4.70-6.10); White Blood Count 10.46 K/ul (4.8-10.8)
--- NOTE | 2024-09-20 08:26 | Pharmacy Report ---
Pharmacy Glycemic Short Note 2 - Date of Service September 20, 2024 - Glycemic Short BSG Results (Last 24 hours): 09/19/24 09/19/24 09/19/24 11:06 17:54 20:05 POC Glucose 257 H 85 150 H 09/20/24 07:18 POC Glucose 114 H OUTPATIENT ANTIDIABETIC REGIMEN: * N/A HbA1c: 8.3% (09/12/24) ASSESSMENT: 09/20 * Stressors stable * AM fasting BSG stable and in goal range after splitting Lantus BID. Will continue same and dose reduce if BSG's fall below goal range * Hyperglycemia at lunch and BSG below goal at dinner noted. However, suspect this is not due to inadequacy of regimen, but rather that both are due to stacking of AM insulin (brekfast Novolog administered ~1.5 hours before checking pre-lunch BSG). Therefore no change to Novolog. 09/19 * Quantitative stressors stable, although question if decreased physiologic stress from more stable clinical status is contributing to increased insulin sensitivity as compared to earlier this admission * Two BSG's below goal yesterday, although not hypoglycemic. One was post- prandial. AM fasting BSG wnl. * Will keep same total daily max dose of Lantus, but split BID and add hold parameters for BSG below goal * Will loosen Novolog and increase goal range to prevent overcorrection 09/18 * Patient remained NPO this AM. T2DM/clear liquid diet started w lunch. Possible downgrade from ICU status today. * AM fasting w notable trend down after patient was NPO most of yesterday and this AM. Slight reduction in Lantus today. Anticipate possible increase back tomorrow now that diet has been resumed and patient may no longer require higher goal for ICU status patient * Correctional insulin given yesterday managed BSG's well. No change to Novolog 09/17: * Patient received 25 units of insulin yesterday, 10 of which were basal. BSGs were: 691-455-311-140 mg/dL. * Fasting BSG this AM was 175 mg/dL. Fastings have now trended up for three consecutive days. Patient is NPO today for a colonoscopy so will leave basal at 10 units this AM with hope that 10 units while NPO will help fasting trend down towards goal. Consideration should be given to increasing basal dose tomorrow AM if diet is resumed. * No changes to Novolog today. Abx have been discontinued. 09/14: * Ronalod received 2 units of insulin yesterday, all bolus. BSGs were: 263-554-280-134 mg/dL. * Fasting BSG up to 209 mg/dL this AM. Will give basal 0.2 units/kg this AM. Tolerating a T2DM diet. * Underwent EGD + Colonoscopy last evening. Protonix has been changed to PO. * Plan to tighten both carb ratio and correction factor this AM given hyperglycemia. 09/12: * JOSEPH is an 84 year old male admitted on 09/12/24 with concern of lower GI bleed w/ rectal bleeding * Blood sugar greater than 300 mg/dL on presentation * Given IV insulin bolus + D50W bolus in ED due to hyperkalemia * Patient w/ known history of pre-diabetes, but now with HbA1c of 8.3% * Pharmacy consulted for glycemic management in light of hyperglycemia and being insulin naive * Blood sugar of 255 mg/dL at this time - will utilize SC basal/bolus regimen at this time * Colonoscopy scheduled for tomorrow morning - NPO PLAN FOR INPATIENT GLYCEMIC CONTROL: * Basal insulin * Lantus 0-4 units SC BID * Bolus insulin * NovoLog per scale ACHS or Q6hrs while NPO * Goal Range: Low 120 mg/dL - High 150 mg/dL * Correction Factor: 45 mg/dL/unit * Nutritional / Prandial insulin per carb ratio of 1 unit per 15 grams CHO consumed
--- NOTE | 2024-09-20 09:39 | Gastroenterology Progress Note ---
Date of Service September 20, 2024 Assessment & Plan (1) Rectal bleeding: Plan His ongoing blood per rectum yesterday and last evening is concerning for a rebleed. Typically rebleeding occurs in the first 24 to 48 hours following endoscopic therapy and he was in that window when bleeding reoccured. The ulcer is at the ligament of Treitz in the proximal jejunum which is a difficult approach endoscopically and was not amenable to endoscopic clipping. He did undergo endoscopic coagulation. At this point we feel his best bet for control in event of continued or hemodynamically significant bleeding would be interventional radiology embolization. To facilitate that in the event of a serious rebleed, we continue to recommend that the patient should be transferred. continue to monitor hgb/hct. transfuse as needed. Admission and Anticipated Discharge Date Admission Date: September 12, 2024 Supervising Physician Co-Signing Physician Notes No bowel movements today. Patient hemodynamically stable. Hemoglobin stable. Understand there is no bed for transfer. Continue observe for further bleeding. Transfuse as needed. Subjective Patient had another episode of rectal bleeding last night. He tells me it was enough blood to concern him. hgb stable at 8.1 (was 8). no other GI concerns. Review of Systems Review of Systems: All systems reviewed & are unremarkable except as noted in HPI & below Physical Exam Constitutional: WD/WN, vitals as above Respiratory: normal respiratory effort, lungs clear to auscultation Cardiovascular: Rate/Rhythm: regular rate and regular rhythm Gastrointestinal (Abdomen): normal bowel sounds, soft, nontender, no hepatosplenomegaly Psychiatric: Orientation: alert and oriented x 3 Results & Data Results & Data Vital Signs (Past 12 Hours) Vital Signs Temp Pulse Pulse Resp BP Pulse Ox O2 Del Method 09/20/24 07:19 97.5 F L 77 19 135/67 91 Room Air 09/20/24 02:51 98.2 F 78 18 132/70 96 Room Air 09/19/24 22:45 70 09/19/24 22:43 98.6 F 77 18 129/74 98 Room Air Coding Level of Care Code 23416 SUB INP/OBS CARE 09/29MIN Diagnoses Rectal bleeding K62.5
--- NOTE | 2024-09-20 15:01 | Hospitalist Progress Note ---
Date of Service September 20, 2024 Assessment & Plan (1) Abdominal pain: (2) Hyperkalemia: (3) Hyperglycemia: Plan This is an 84-year-old incarcerated male who has significant past medical history of HTN, HLD, urinary retention and bilateral hydronephrosis with chronic Mora catheter in place who presents to ED secondary to bright red blood per rectum as well as abdominal pain for the past few days. Rectal Bleeding Acute Blood Loss Anemia Abdominal pain Anal Mass Pt presented with rectal bleeding Hemoglobin dropped acutely from 12.4-9.[address] abdomen pelvis noting possible duodenitis GI consulted, recommended or stated the following: -Status post EGD and colonoscopy on September 13, 2024 -Anal mass noted for which GI recommends colorectal follow-up as an outpatient -many diverticula noted -Noted blood in the sigmoid colon and in the descending colon, GI noting suspicious for diverticular bleed -Multiple biopsies taken from the gastric antrum and gastric body, pending Continue to monitor H&H- currently downtrended but stable 09/16/24- Patient with drop of hemoglobin from 7.0 this morning to 5 range on repeat. Patient hypotensive and tachycardic. Given a fluid bolus and ordered transfused [address] angio of the abdomen ordered per recommendations of GI and [facility] was consulted for transfer. Patient was transferred to the ICU for further evaluation and management. 09/17/24- patient currently awaiting colonoscopy and/or EGD. Has since been transfused 3 units of blood with rise in hemoglobin from 5 to 8 range before downtrending to 7.5 again this morning. Hemodynamically stable at this time. 09/18- had EGD and colonoscopy done on the that noted 1 oozing cratered ulcer with adherent clot in the jejunum with hemostasis achieved with epinephrine and cauterization. Per GI patient remains at risk of recurrent bleeding which can occur within 48 to 72 hours. Hemoglobin remains stable as of this morning to 8.4 The patient has had a big bloody bowel movement with feeling of weakness and tiredness. The GI advised the patient to be transferred to tertiary care center for IR intervention Repeat hemoglobin was 8.0. Discussed with the transfer center and advised to have a CTA and awaiting acceptance as of now His hemoglobin remains stable and no more episodes of bleeding Remains asymptomatic and diet has been advanced to full liquid Likely discharge tomorrow if remains stable Sepsis Complicated urinary tract infection Patient presented hypotensive and tachycardic, with chronic leukocytosis Lactate elevated with downtrend after fluid resuscitation UA suggestive of infection, urine culture grew E faecalis and Citrobacter IV Rocephin switched to cefepime and daptomycin Adjust antibiotics based on culture sensitivities once available Follow blood cultures, no growth to date Continue to monitor 09/16/24- switched to Unasyn in the ICU 09/17/24- abx discontinued in the ICU No evidence of infection at this time Hyperkalemia Initial K was 6.7 s/p Calcium Gluconate, Dextrose and IV insulin EKG with normal sinus rhythm with right bundle branch block currently within normal limits Continue to monitor Improved DMII hemoglobin A1c of 8.3 Basal bolus per protocol Will need outpatient follow-up as this is a new diagnosis for for patient Continue to monitor 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 Abnormal UA/Possible UTI follows with [facility], exchanges on the of each month exchanged on admission Will put the Mora if he cannot pee normally IPMN Renal Cysts Noted on imaging Will need follow-up outpatient diet: DM2, safety tray DVT ppx: SCDS in setting of acute GI bleed dispo: Return to [facility] once medically stable Admission and Anticipated Discharge Date Admission Date: September 12, 2024 Subjective 09/19/2024 The patient was seen and examined in telemetry unit He has been asymptomatic since this morning but later on he has had a big bowel movement and there was fresh blood He has been feeling weak but no other symptoms 09/20/2024 The patient was seen and examined in telemetry unit He remains asymptomatic and has not had any more bowel movement His hemoglobin remains stable and diet has been advanced to full liquid If there is no episode of bleeding he will be back to the [facility] tomorrow Review of Systems Review of Systems: All systems reviewed and are unremarkable except as noted below Physical Exam Physical Exam: Lying in bed without any acute distress Constitutional: well developed and well nourished; not ill appearing Eyes: PERRL, conjunctivae normal, anicteric sclerae ENMT: external ear and nose normal, oropharynx normal Neck: trachea midline, no thyromegaly Respiratory: no respiratory distress Auscultation: lungs clear to auscultation bilaterally Cardiovascular: Rate/Rhythm: regular rate and regular rhythm; not tachycardic Heart Sounds: normal S1 and normal S2; no murmur Extremities: no edema Gastrointestinal (Abdomen): Inspection/Auscultation: normal bowel sounds; abdomen not distended Percussion/Palpation: abdomen soft; abdomen nontender Neurologic: normal touch/pain/proprioception and moves all extremities; no fo solomon motor deficits Lymphatic: no cervical or axillary lymphadenopathy Results & Data Results & Data Vital Signs (Past 12 Hours) Vital Signs Temp Pulse Resp BP Pulse Ox O2 Del Method 09/20/24 11:20 36.6 C 91 H 19 130/70 96 Room Air 09/20/24 07:19 36.4 C L 77 19 135/67 91 Room Air 09/20/24 02:51 36.8 C 78 18 132/70 96 Room Air Laboratory Results Short CBC 09/20/24 Range/Units 05:52 WBC 10.46 (4.8-10.8) K/ul Hgb 8.1 L (14.0-18.0) g/dl Hct 24.4 L (42.0-52.0) % Plt Count 281 (130-400) K/uL Medications Administered Current Inpatient Medications Acetaminophen (Acetaminophen 325 Mg Tab) 650 mg PO Q4H PRN PRN Reason: Pain or Fever Stop: 10/12/24 13:36 Dextrose (Dextrose 50% 50 Ml Syringe) 25 - 50 ml IV UD PRN; Protocol PRN Reason: Hypoglycemia Protocol Stop: 10/12/24 13:36 Finasteride (Finasteride 5 Mg Tab) 5 mg PO DAILY FATIMAH Stop: 10/13/24 08:59 Last Admin: 09/20/24 08:19 Dose: 5 mg Glucagon (Glucagon For Inj 1 Mg Vial) 1 mg SQ UD PRN; Protocol PRN Reason: Hypoglycemia Protocol Stop: 10/12/24 13:36 Glucose (Glucose 40% Gel 15 Gm Tube) 15 - 30 gm PO UD PRN; Protocol PRN Reason: Hypoglycemia Protocol Stop: 10/12/24 13:36 Glucose (Glucose 10 Tab/Tube) 4 - 8 tab PO UD PRN; Protocol PRN Reason: Hypoglycemia Protocol Stop: 10/12/24 13:36 Pantoprazole Sodium (Protonix) 40 mg in 10 mls @ 5 mls/min IV BID FATIMAH Stop: 10/17/24 08:59 Last Admin: 09/20/24 08:19 Dose: 5 mls/min Insulin Aspart (Insulin Aspart Per Unit Charge) 0 units SC ACHS [facility] Stop: 10/19/24 20:59 Last Admin: 09/20/24 12:16 Dose: 3 units Insulin Glargine (Lantus Per Unit Charge) 0 units SC BID [facility]; Protocol Stop: 10/19/24 08:59 Last Admin: 09/20/24 08:29 Dose: 4 units Magnesium Oxide (Magnesium Oxide 400 Mg Tab) 400 mg PO BID [facility] Stop: 10/14/24 08:59 Last Admin: 09/20/24 08:24 Dose: 400 mg Miscellaneous (Carbohydrates For Hypoglycemia ) 15 - 30 gm PO UD PRN PRN Reason: Hypoglycemia Protocol Stop: 10/12/24 13:36 Miscellaneous (Remove Nicoderm Patch) 1 each N/A DAILY@0859 [facility] Stop: 10/13/24 08:58 Last Admin: 09/20/24 08:24 Dose: 1 each Miscellaneous Information (Pharmacy Glycemic Mgmt Consult) 1 each N/A UD PRN PRN Reason: Consult Stop: 10/12/24 13:36 Nicotine (Nicotine 7 Mg/24 Hr Tdsy) 1 patch TD QAM [facility] Stop: 10/12/24 18:29 Last Admin: 09/20/24 08:20 Dose: 1 patch Ondansetron HCl (Ondansetron Inj 2 Mg/Ml 2 Ml Vial) 4 mg IV Q6H PRN PRN Reason: Nausea Stop: 10/12/24 13:36 Potassium Phosphate (Pot Phosphate Monobasic W/ Sod Tab) 2 tab PO QID [facility] Stop: 10/14/24 08:59 Last Admin: 09/20/24 12:17 Dose: 2 tab Tamsulosin HCl (Tamsulosin Hcl 0.4 Mg Cap) 0.4 mg PO HS [facility] Stop: 10/12/24 20:59 Last Admin: 09/19/24 20:14 Dose: 0.4 mg
[2024-09-20] MEDS: CARBOHYDRATES FOR HYPOGLYCEMIA PO PRN (16:14)
[2024-09-20] MEDS: MELATONIN 3 MG TAB PO PRN (21:06)
[2024-09-20 23:50] LABS: Hematocrit (blood only) 24.3 % (42.0-52.0); Hemoglobin 7.9 g/dl (14.0-18.0)
[2024-09-21 06:42] LABS: Basophils # (auto) 0.06 K/uL (0.00-0.20); Basophils % (auto) 0.6 %; Eosinophils # (auto) 0.57 K/uL (0.00-0.50); Eosinophils % (auto) 5.8 %; Hematocrit (blood only) 25.7 % (42.0-52.0); Hemoglobin 8.4 g/dl (14.0-18.0); Immature Granulocytes # (auto) 0.05 K/uL (0.01-0.20); Immature Granulocytes % (auto) 0.5 %; Lymphocytes # (auto) 2.17 K/uL (1.20-3.40); Lymphocytes % (auto) 21.9 %; Mean Corpuscular Hemoglobin 29.1 pg (25.0-34.0); Mean Corpuscular Hgb Conc 32.7 g/dL (32.0-36.0); Mean Corpuscular Volume 88.9 fL (80.0-100.0); Mean Platelet Volume 11.3 fL (9.4-12.4); Monocytes # (auto) 1.09 K/uL (0.11-0.59); Neutrophils # (auto) 5.95 K/uL (1.40-6.50); Neutrophils % (auto) 60.2 %; Platelet Count 323 K/uL (130-400); RDW Coefficient of Variation 14.5 % (11.5-14.5); Red Blood Count 2.89 M/uL (4.70-6.10); White Blood Count 9.89 K/ul (4.8-10.8)
[2024-09-21] MEDS: ACETAMINOPHEN 325 MG TAB PO PRN (07:35)
--- NOTE | 2024-09-21 11:16 | Pharmacy Report ---
Pharmacy Glycemic Short Note 2 - Date of Service September 21, 2024 - Glycemic Short BSG Results (Last 24 hours): 09/20/24 09/20/24 09/20/24 11:19 16:09 16:13 POC Glucose 140 H 59 L* 54 L* 09/20/24 09/20/24 09/21/24 16:34 20:04 07:34 POC Glucose 103 H 174 H 126 H OUTPATIENT ANTIDIABETIC REGIMEN: * N/A HbA1c: 8.3% (09/12/24) ASSESSMENT: 09/21 * 15 units SQ insulin give over the last 24 hours. PO intake appears to be minimal per carb counts. * Patient did experience episode of hypoglycemia prior to dinner yesterday. This was likely due to excess prandial insulin - will decrease. * Fasting BSG at goal with 8 units basal on board - no change 09/20 * Stressors stable * AM fasting BSG stable and in goal range after splitting Lantus BID. Will continue same and dose reduce if BSG's fall below goal range * Hyperglycemia at lunch and BSG below goal at dinner noted. However, suspect this is not due to inadequacy of regimen, but rather that both are due to stacking of AM insulin (brekfast Novolog administered ~1.5 hours before checking pre-lunch BSG). Therefore no change to Novolog. 09/19 * Quantitative stressors stable, although question if decreased physiologic st ress from more stable clinical status is contributing to increased insulin sensitivity as compared to earlier this admission * Two BSG's below goal yesterday, although not hypoglycemic. One was post-p randial. AM fasting BSG wnl. * Will keep same total daily max dose of Lantus, but split BID and add hold parameters for BSG below goal * Will loosen Novolog and increase goal range to prevent overcorrection PLAN FOR INPATIENT GLYCEMIC CONTROL: * Basal insulin * Lantus 0-4 units SC BID * Bolus insulin * NovoLog per scale ACHS or Q6hrs while NPO * Goal Range: Low 120 mg/dL - High 150 mg/dL * Correction Factor: 45 mg/dL/unit * Nutritional / Prandial insulin per carb ratio of 1 unit per 20 grams CHO consumed
--- NOTE | 2024-09-21 11:49 | Hospitalist Progress Note ---
Date of Service September 21, 2024 Assessment & Plan (1) Abdominal pain: (2) Hyperkalemia: (3) Hyperglycemia: Plan This is an 84-year-old incarcerated male who has significant past medical history of HTN, HLD, urinary retention and bilateral hydronephrosis with chronic Mora catheter in place who presents to ED secondary to bright red blood per rectum as well as abdominal pain for the past few days. Rectal Bleeding Acute Blood Loss Anemia Abdominal pain Anal Mass Pt presented with rectal bleeding Hemoglobin dropped acutely from 12.4-9.[address] abdomen pelvis noting possible duodenitis GI consulted, recommended or stated the following: -Status post EGD and colonoscopy on September 13, 2024 -Anal mass noted for which GI recommends colorectal follow-up as an outpatient -many diverticula noted -Noted blood in the sigmoid colon and in the descending colon, GI noting suspicious for diverticular bleed -Multiple biopsies taken from the gastric antrum and gastric body, pending Continue to monitor H&H- currently downtrended but stable 09/16/24- Patient with drop of hemoglobin from 7.0 this morning to 5 range on repeat. Patient hypotensive and tachycardic. Given a fluid bolus and ordered transfused [address] angio of the abdomen ordered per recommendations of GI and Bridge Repairer was consulted for transfer. Patient was transferred to the ICU for further evaluation and management. 09/17/24- patient currently awaiting colonoscopy and/or EGD. Has since been transfused 3 units of blood with rise in hemoglobin from 5 to 8 range before downtrending to 7.5 again this morning. Hemodynamically stable at this time. 09/18- had EGD and colonoscopy done on the that noted 1 oozing cratered ulcer with adherent clot in the jejunum with hemostasis achieved with epinephrine and cauterization. Per GI patient remains at risk of recurrent bleeding which can occur within 48 to 72 hours. Hemoglobin remains stable as of this morning to 8.4 The patient has had a big bloody bowel movement with feeling of weakness and tiredness. The GI advised the patient to be transferred to tertiary care center for IR intervention Repeat hemoglobin was 8.0. Discussed with the transfer center and advised to have a CTA and awaiting acceptance as of now His hemoglobin remains stable and no more episodes of bleeding Remains asymptomatic and diet has been advanced to full liquid Likely discharge tomorrow if remains stable No more episode of rectal bleed and the patient does not have any acute GI symptoms His hemoglobin remains stable at more than 8 and he will be discharged this afternoon Sepsis Complicated urinary tract infection Patient presented hypotensive and tachycardic, with chronic leukocytosis Lactate elevated with downtrend after fluid resuscitation UA suggestive of infection, urine culture grew E faecalis and Citrobacter IV Rocephin switched to cefepime and daptomycin Adjust antibiotics based on culture sensitivities once available Follow blood cultures, no growth to date Continue to monitor 09/16/24- switched to Unasyn in the ICU 09/17/24- abx discontinued in the ICU No evidence of infection at this time Hyperkalemia Initial K was 6.7 s/p Calcium Gluconate, Dextrose and IV insulin EKG with normal sinus rhythm with right bundle branch block currently within normal limits Continue to monitor Improved DMII hemoglobin A1c of 8.3 Basal bolus per protocol Will need outpatient follow-up as this is a new diagnosis for for patient Continue to monitor 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 Abnormal UA/Possible UTI follows with [facility], exchanges on the of each month exchanged on admission Will put the Mora if he cannot pee normally He has been passing urine without the Mora IPMN Renal Cysts Noted on imaging Will need follow-up outpatient diet: DM2, safety tray DVT ppx: SCDS in setting of acute GI bleed dispo: Return to group home once medically stable Will be discharged to [facility] this afternoon Admission and Anticipated Discharge Date Admission Date: September 12, 2024 Subjective 09/19/2024 The patient was seen and examined in telemetry unit He has been asymptomatic since this morning but later on he has had a big bowel movement and there was fresh blood He has been feeling weak but no other symptoms 09/20/2024 The patient was seen and examined in telemetry unit He remains asymptomatic and has not had any more bowel movement His hemoglobin remains stable and diet has been advanced to full liquid If there is no episode of bleeding he will be back to the group home tomorrow 09/21/2024 The patient was seen and examined in telemetry unit He has been feeling better and complained to have some dizziness and also blurred vision early this morning Denies any of those during examination Denies any other significant symptoms and he will be discharged to the [facility] this afternoon Review of Systems Review of Systems: All systems reviewed and are unremarkable except as noted below Physical Exam Physical Exam: Lying in bed without any acute distress Constitutional: well developed and well nourished; not ill appearing Eyes: PERRL, conjunctivae normal, anicteric sclerae ENMT: external ear and nose normal, oropharynx normal Neck: trachea midline, no thyromegaly Respiratory: no respiratory distress Auscultation: lungs clear to auscultation bilaterally Cardiovascular: Rate/Rhythm: regular rate and regular rhythm; not tachycardic Heart Sounds: normal S1 and normal S2; no murmur Extremities: no edema Gastrointestinal (Abdomen): Inspection/Auscultation: normal bowel sounds; abdomen not distended Percussion/Palpation: abdomen soft; abdomen nontender Neurologic: normal touch/pain/proprioception and moves all extremities; no focal motor deficits Lymphatic: no cervical or axillary lymphadenopathy Results & Data Results & Data Vital Signs (Past 12 Hours) Vital Signs Temp Pulse Pulse Resp BP Pulse Ox O2 Del Method 09/21/24 11:15 36.6 C 100 H 18 130/80 98 Room Air 09/21/24 07:00 36.6 C 93 H 16 136/86 97 Room Air 09/21/24 03:51 36.5 C 75 16 133/67 96 Room Air 09/21/24 00:46 90 Laboratory Results Short CBC 09/20/24 09/21/24 Range/Units 23:21 05:58 WBC 9.89 (4.8-10.8) K/ul Hgb 7.9 L 8.4 L (14.0-18.0) g/dl Hct 24.3 L 25.7 L (42.0-52.0) % Plt Count 323 (130-400) K/uL Medications Administered Current Inpatient Medications Acetaminophen (Acetaminophen 325 Mg Tab) 650 mg PO Q4H PRN PRN Reason: Pain or Fever Stop: 10/12/24 13:36 Last Admin: 09/21/24 07:35 Dose: 650 mg Dextrose (Dextrose 50% 50 Ml Syringe) 25 - 50 ml IV UD PRN; Protocol PRN Reason: Hypoglycemia Protocol Stop: 10/12/24 13:36 Finasteride (Finasteride 5 Mg Tab) 5 mg PO DAILY [facility] Stop: 10/13/24 08:59 Last Admin: 09/21/24 09:11 Dose: 5 mg Glucagon (Glucagon For Inj 1 Mg Vial) 1 mg SQ UD PRN; Protocol PRN Reason: Hypoglycemia Protocol Stop: 10/12/24 13:36 Glucose (Glucose 40% Gel 15 Gm Tube) 15 - 30 gm PO UD PRN; Protocol PRN Reason: Hypoglycemia Protocol Stop: 10/12/24 13:36 Glucose (Glucose 10 Tab/Tube) 4 - 8 tab PO UD PRN; Protocol PRN Reason: Hypoglycemia Protocol Stop: 10/12/24 13:36 Pantoprazole Sodium (Protonix) 40 mg in 10 mls @ 5 mls/min IV BID [facility] Stop: 10/17/24 08:59 Last Admin: 09/21/24 09:12 Dose: 5 mls/min Insulin Aspart (Insulin Aspart Per Unit Charge) 0 units SC ACHS [facility] Stop: 10/19/24 20:59 Last Admin: 09/21/24 07:40 Dose: 1 units Insulin Glargine (Lantus Per Unit Charge) 0 units SC BID [facility]; Protocol Stop: 10/19/24 08:59 Last Admin: 09/21/24 09:16 Dose: 4 units Magnesium Oxide (Magnesium Oxide 400 Mg Tab) 400 mg PO BID [facility] Stop: 10/14/24 08:59 Last Admin: 09/21/24 09:15 Dose: 400 mg Melatonin (Melatonin 3 Mg Tab) 3 mg PO HS PRN PRN Reason: Sleep Stop: 10/20/24 20:41 Last Admin: 09/20/24 21:06 Dose: 3 mg Miscellaneous (Carbohydrates For Hypoglycemia ) 15 - 30 gm PO UD PRN PRN Reason: Hypoglycemia Protocol Stop: 10/12/24 13:36 Last Admin: 09/20/24 16:14 Dose: 15 gm Miscellaneous (Remove Nicoderm Patch) 1 each N/A DAILY@0859 [facility] Stop: 10/13/24 08:58 Last Admin: 09/21/24 09:11 Dose: 1 each Miscellaneous Information (Pharmacy Glycemic Mgmt Consult) 1 each N/A UD PRN PRN Reason: Consult Stop: 10/12/24 13:36 Nicotine (Nicotine 7 Mg/24 Hr Tdsy) 1 patch TD QAM [facility] Stop: 10/12/24 18:29 Last Admin: 09/21/24 09:10 Dose: 1 patch Ondansetron HCl (Ondansetron Inj 2 Mg/Ml 2 Ml Vial) 4 mg IV Q6H PRN PRN Reason: Nausea Stop: 10/12/24 13:36 Potassium Phosphate (Pot Phosphate Monobasic W/ Sod Tab) 2 tab PO QID [facility] Stop: 10/14/24 08:59 Last Admin: 09/21/24 09:11 Dose: 2 tab Tamsulosin HCl (Tamsulosin Hcl 0.4 Mg Cap) 0.4 mg PO HS [facility] Stop: 10/12/24 20:59 Last Admin: 09/20/24 21:06 Dose: 0.4 mg
--- NOTE | 2024-09-22 08:34 | Discharge Summary ---
Date of Service September 22, 2024 Admission HPI Per Admitting Provider This is an 84-year-old male who has significant past medical history of HTN, HLD, urinary retention and bilateral hydronephrosis with chronic Mora catheter in place who presents to ED secondary to bright red blood per rectum as well as abdominal pain for the past few days. He reports a prior history of peptic ulcer disease many years ago. He is unsure if he has ever had prior rectal bleeding in the past. He reports of bilateral lower abdominal pain for the last 2 to 3 days. He reports the pain is constant. He tried Maalox with no relief. Nothing seems to make the pain worse. He also reports more frequent bowel movements and passing bright red blood and occasionally clots. He denies any epigastric discomfort. He denies any significant NSAID use. He denies taking any aspirin or blood thinners. He denies any recent illness, fever, chills, sweats, lightheadedness, dizzy, chest pain, shortness breath, nausea or vomiting. He is unsure if he ate breakfast this morning, but he does not think so. In ED patient was initially hypotensive and tachycardic. This improved after a 1 L fluid bolus. Lab work was notable for WBC of 17.8 5K, H&H 12.4 and 37.4, platelet count 215, potassium 6.7, BUN 46, creatinine 1.09, glucose 370, lactate 2.2. He was started on a PPI bolus and drip. He received a total of 2 L of IV fluid. He was appropriately resuscitated and during my evaluation his blood pressure was stable and he was mildly tachycardic. He does have a chronic Mora catheter in place. He reports getting this exchanged every month on the . Admission Exam Per Admitting Provider Physical Exam: Constitutional: WD/WN, vitals as above, NAD, sitting up in bed, pleasant, conversing easily Head: Normocephalic, Atraumatic Eyes: PERRL, conjunctivae normal, anicteric sclerae ENMT: external ear and nose normal, oropharynx normal Neck: trachea midline, no thyromegaly normal visual inspection Respiratory: normal respiratory effort, lungs clear to auscultation, no wheeze, rales, rhonchi. Normal insp/exp effort, no accessory muscle use Cardiovascular: tachycardic rate, reg rhythm, no murmur, no edema Vessels: no JVD or carotid bruit Chest: normal inspection of chest Abdomen: normal bowel sounds, soft, nontender, no hepatosplenomegaly Musculoskeletal: no cyanosis or clubbing, extremities motor strength 5/5 Skin: no rashes, warm and dry normal turgor Neurologic: PERRL, EOMI, accommodation nl, no face palsy, no dysarthria CN's II-XI intact bilaterally and moves all extremities Psychiatric: A+Ox3, euthymic affect Lymphatic: no cervical or axillary lymphadenopathy : deferred Principal Diagnosis Gastrointestinal bleeding due to jejunal ulcer, complicated UTI, chronic urinary retention, type 2 diabetes, anal mass Discharge Exam Lying in bed without any acute distress Constitutional well developed and well nourished; not ill appearing Eyes PERRL, conjunctivae normal, anicteric sclerae ENMT external ear and nose normal, oropharynx normal Neck trachea midline, no thyromegaly Respiratory no respiratory distress Auscultation: lungs clear to auscultation bilaterally Cardiovascular Rate/Rhythm: regular rate and regular rhythm; not tachycardic Heart Sounds: normal S1 and normal S2; no murmur Extremities: no edema Gastrointestinal (Abdomen) Inspection/Auscultation: normal bowel sounds; abdomen not distended Percussion/Palpation: abdomen soft; abdomen nontender Neurologic normal touch/pain/proprioception and moves all extremities; no focal motor deficits Lymphatic no cervical or axillary lymphadenopathy Discharge Data Allergies Allergy/AdvReac Type Severity Reaction Status Date / Time No Known Allergies Allergy Unverified 05/22/24 07:52 Consultations 09/12/24 12:39 Consult Gastroenterology Routine ED Decision to Admit Stat 09/16/24 13:50 Consult Strategic Alliances Manager Stat 09/16/24 14:56 Consult General Surgery Routine Procedures Performed Operation Date: 09/17/24 16:55 Actual Procedures p Colonoscopy(Not Applicable) - Rafa Boles MD s EGD Hemostasis - Rafa Boles MD s EGD Biopsy Cytology(Not Applicable) - Rafa Boles MD Ordered Studies 09/12/24 11:20 CT abd pelvis IV con only Stat 09/16/24 13:38 CT angio abdomen pelvis w con Stat 09/17/24 09:27 US venous doppler UE LT Urgent 09/19/24 13:04 CTA abdomen pelvis w con [CT angio abdomen pelvis w con] Urgent Hospital Course (1) Abdominal pain: (2) Hyperkalemia: (3) Hyperglycemia: Plan This is an 84-year-old incarcerated male who has significant past medical history of HTN, HLD, urinary retention and bilateral hydronephrosis with chronic Mora catheter in place who presents to ED secondary to bright red blood per rectum as well as abdominal pain for the past few days. Rectal Bleeding Acute Blood Loss Anemia Abdominal pain Anal Mass Pt presented with rectal bleeding Hemoglobin dropped acutely from 12.4-9.[address] abdomen pelvis noting possible duodenitis GI consulted, recommended or stated the following: -Status post EGD and colonoscopy on September 13, 2024 -Anal mass noted for which GI recommends colorectal follow-up as an outpatient -many diverticula noted -Noted blood in the sigmoid colon and in the descending colon, GI noting suspicious for diverticular bleed -Multiple biopsies taken from the gastric antrum and gastric body, pending Continue to monitor H&H- currently downtrended but stable 09/16/24- Patient with drop of hemoglobin from 7.0 this morning to 5 range on repeat. Patient hypotensive and tachycardic. Given a fluid bolus and ordered transfused [address] angio of the abdomen ordered per recommendations of GI and Strategic Alliances Manager was consulted for transfer. Patient was transferred to the ICU for further evaluation and management. 09/17/24- patient currently awaiting colonoscopy and/or EGD. Has since been transfused 3 units of blood with rise in hemoglobin from 5 to 8 range before downtrending to 7.5 again this morning. Hemodynamically stable at this time. 09/18- had EGD and colonoscopy done on the that noted 1 oozing cratered ulcer with adherent clot in the jejunum with hemostasis achieved with epinephrine and cauterization. Per GI patient remains at risk of recurrent bleeding which can occur within 48 to 72 hours. Hemoglobin remains stable as of this morning to 8.4 The patient has had a big bloody bowel movement with feeling of weakness and tiredness. The GI advised the patient to be transferred to tertiary care center for IR intervention Repeat hemoglobin was 8.0. Discussed with the transfer center and advised to have a CTA and awaiting acceptance as of now His hemoglobin remains stable and no more episodes of bleeding Remains asymptomatic and diet has been advanced to full liquid Likely discharge tomorrow if remains stable No more episode of rectal bleed and the patient does not have any acute GI symptoms His hemoglobin remains stable at more than 8 and he will be discharged this afternoon Sepsis Complicated urinary tract infection Patient presented hypotensive and tachycardic, with chronic leukocytosis Lactate elevated with downtrend after fluid resuscitation UA suggestive of infection, urine culture grew E faecalis and Citrobacter IV Rocephin switched to cefepime and daptomycin Adjust antibiotics based on culture sensitivities once available Follow blood cultures, no growth to date Continue to monitor 09/16/24- switched to Unasyn in the ICU 09/17/24- abx discontinued in the ICU No evidence of infection at this time Hyperkalemia Initial K was 6.7 s/p Calcium Gluconate, Dextrose and IV insulin EKG with normal sinus rhythm with right bundle branch block currently within normal limits Continue to monitor Improved DMII hemoglobin A1c of 8.3 Basal bolus per protocol Will need outpatient follow-up as this is a new diagnosis for for patient Continue to monitor 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 Abnormal UA/Possible UTI [place] [facility] [place] [facility], exchanges on the of each month exchanged on admission Will put the Mora if he cannot pee normally He has been passing urine without the Mora IPMN Renal Cysts Noted on imaging Will need follow-up outpatient diet: DM2, safety tray DVT ppx: SCDS in setting of acute GI bleed dispo: Return to [facility] once medically stable Will be discharged to [facility] this afternoon Total Time Total Time Spent Total Time Spent (In Minutes): 40 minutes Discharge Plan Discharge Items [facility] Disposition: [facility] Reason For Visit: GIB, HYPERKALEMIA Discharge Diagnosis: Gastrointestinal bleeding due to jejunal ulcer, complicated UTI, chronic urinary retention, type 2 diabetes, anal mass Condition on Discharge: Good Activity: Resume your previous activity Non-emergency contact: Primary Care Provider Call non-emergency contact if: you have any medication questions and your symptoms worsen Follow-up/Referrals: Miller BOOTH [Primary Care Provider] - Diet: Carb Consistent or DM2 Addtl Attending Provider Instructions: Please take precautions to avoid falls Do not take any aspirin and/or NSAIDs like ibuprofen, Motrin naproxen etc. You will need to have a referral to colorectal surgeon as an outpatient for the anal mass Pending Studies at Discharge: No Stand-Alone Forms: My [facility] Skilled Items Patient informed of condition?: Yes Discharge Level of Care: Other Communicable Disease: No Discharge Prognosis: Stable Lines: None Urinary Catheter: Yes Medications and DC Order Prescriptions: New pantoprazole [Protonix] 40 mg tablet,delayed release (DR/EC) 40 mg PO BID Qty: 60 0RF Continued dutasteride [Avodart] 0.5 mg capsule 0.5 mg PO DAILY Qty: 90 3RF atorvastatin 40 mg Tablet 40 mg PO HS tamsulosin 0.4 mg Capsule 0.4 mg PO HS lisinopril 20 mg Tablet 20 mg PO DAILY Discharge Orders: Discharge Order (Routine); Ordered 09/21/24 Ordered By: Sage Do Admission Data Admit Date/Time: 09/12/24 12:42 Attending Provider: Sage Do Admit Provider: Yared Stanford Primary Care Provider: Miller BOOTH Other Providers: Andrew Erickson I; Wilner Galaviz; Ernie Greenwood Other Interventions: Discharge Summary Assessment (RN) Last Done: 09/21/24 13:46
== END 2024-09-21 14:13 | DRG 377 ==
LOC: ED 10:28 → SUATTDRO 12:42 → EDINP 12:42 → 2E 13:53 → 1E 09-16 14:38 → 2E 09-18 19:27

== ENCOUNTER 2025-07-27 21:23 | Inpatient (IN) ==
[2025-07-27] MEDS ORDERED: SODIUM CHLORIDE 0.9% 100 ML IV PRN (21:29)
[2025-07-27] MEDS: SODIUM CHLORIDE 0.9% 1,000 ML IV SCH (21:48)
[2025-07-27] MEDS: METOCLOPRAMIDE HCL INJ 5 MG/ML 2 ML VIAL ONE (21:48)
[2025-07-27] MEDS: METOCLOPRAMIDE HCL INJ 5 MG/ML 2 ML VIAL IV STA (21:48)
[2025-07-27] MEDS: OPTIRAY 320 100ml IV ONE (21:57)
[2025-07-27 21:59] LABS: Hematocrit (blood only) 36.0 % (42.0-52.0); Hemoglobin 12.5 g/dL (14.0-18.0); Immature Granulocytes # (auto) 0.15 K/uL (0.01-0.20); Immature Granulocytes % (auto) 0.8 %; Mean Corpuscular Hemoglobin 30.7 pg (25.0-34.0); Mean Corpuscular Volume 88.5 fL (80.0-100.0); Platelet Count 202 K/uL (130-400); RDW Standard Deviation 45.3 fL (36.4-46.3); Red Blood Count 4.07 M/uL (4.70-6.10); White Blood Count 19.43 K/ul (4.8-10.8)
--- NOTE | 2025-07-27 22:17 | CT Scan Report ---
Exam(s): CT ABDOMEN + PELVIS With Contrast IV Amt: 93ML OPTIRAY 320 EXAM: CT Abdomen and Pelvis With Intravenous Contrast CLINICAL HISTORY: gi bleed. TECHNIQUE: Axial computed tomography images of the abdomen and pelvis with intravenous contrast. CTDI is 14.74 mGy and DLP is 771.14 mGy-cm. Automated exposure control was utilized for the study. A dose lowering technique was utilized adhering to the principles of ALARA. CONTRAST: Patient received 93ML OPTIRAY 320 of IV contrast COMPARISON: No relevant prior studies available. FINDINGS: Lung bases: Normal. No mass. No consolidation. ABDOMEN: Liver: No active intraluminal bleeding noted on this single portal venous phase examination. Gallbladder and bile ducts: Normal. No calcified stones. No ductal dilation. Pancreas: Pancreas is atrophic in appearance. There is a cyst in the proximal tail of the pancreas, estimated at 13 by 16 x 16 mm. No ductal dilation. Spleen: The spleen is absent. Adrenals: Normal. No mass. Kidneys and ureters: There are multiple cysts noted involving both kidneys, more numerous on the right. The largest cyst inferiorly measures 7 x 6.1 x 7.1 cm. No obvious internal solid components noted. The kidneys demonstrate normal enhancement without pyelonephritis or hydronephrosis. Stomach and bowel: The stomach and duodenum are prominently distended with fluid. There is retained hyperdense material in the dependent stomach. There is also some hyperdense material in the distal horizontal portion of the duodenum near the ligament of Treitz. In addition, there is abnormal fat stranding surrounding the duodenum in the duodenal diverticulum near the junction of the descending with the distal horizontal segment. Surrounding nonspecific presumably reactive lymph nodes adjacent to the duodenum. The small bowel is otherwise unremarkable. No bowel obstruction. No definite asymmetric bowel mucosal abnormality, accounting for limitations with respiratory artifact. Mild stool burden. Diverticulosis. PELVIS: Appendix: No findings to suggest acute appendicitis. Bladder: A Mora catheter is noted in the bladder which is predominantly decompressed. Bladder wall thickening is of uncertain clinical significance with decompression. Reproductive: Unremarkable as visualized. ABDOMEN and PELVIS: Intraperitoneal space: Normal. No free air. No significant fluid collection. Bones/joints: No acute fracture. No dislocation. Soft tissues: Normal. Vasculature: Fusiform ectasia of the infrarenal aorta, measuring 2.5 x 2.6 cm with atherosclerotic calcification. No dissection or acute periaortic abnormality. Lymph nodes: See above. IMPRESSION: 1. The stomach and duodenum are prominently distended with fluid. There is retained hyperdense material in the dependent stomach. There is also some hyperdense material in the distal horizontal portion of the duodenum near the ligament of Treitz. In addition, there is abnormal fat stranding surrounding the duodenum in the duodenal diverticulum near the junction of the descending with the distal horizontal segment. Surrounding nonspecific presumably reactive lymph nodes adjacent to the duodenum. Findings are most consistent with duodenitis. No abscess or perforation. 2. No active intraluminal bleeding noted on this single portal venous phase examination. 3. Pancreas is atrophic in appearance. There is a cyst in the proximal tail of the pancreas, estimated at 13 by 16 x 16 mm. ACR White Paper guidelines (Sydnie, et al. JACR 2017; 14(7):911-923) suggest a contrast- enhanced, pancreas-protocol abdominal CT or MR in 2 years. Electronically signed by: Stevie Baker MD 07/27/25 22:16 PM
[2025-07-27] MEDS: PANTOprazole 40 MG in DEXTROSE 5% MINI-B 100 ML IV SCH (22:20)
[2025-07-27] MEDS: PANTOPRAZOLE BOLUS/DRIP IV STA (22:25)
[2025-07-27 22:29] LABS: INR 1.1 (0.9-1.1); Partial Thromboplastin Time 23 Seconds (21-31); Prothrombin Time 11.8 Seconds (9.0-12.0)
[2025-07-27] MEDS: MoRPHine SULFATE 4 MG/ML 1 ML CARP\\VIAL IV STA (22:33)
[2025-07-27 22:40] LABS: Alanine Aminotransferase 16.0 U/L (7-52); Albumin Globulin Ratio 1.0 (0.9-2); Albumin Level 2.9 gm/dl (3.4-5.0); Alkaline Phosphatase 86.0 U/L (34-104); Anion Gap 11.0 (3-11); Bilirubin,Total 0.5 mg/dl (0.2-1.0); Blood Urea Nitrogen 59.0 mg/dl (6-23); Calcium 8.6 mg/dl (8.6-10.3); Carbon Dioxide 27.0 mmol/L (21-32); Chloride 100.0 mmol/L (98-107); Creatinine Clr Calc Pharmacy 26.5 ml/min; Globulin 2.9 gm/dl (2.5-4.0); Glucose 280.0 mg/dl (70-99(Fasting)); Potassium 5.2 mmol/L (3.5-5.1); Sodium 138.0 mmol/L (136-145); Total Protein 5.8 gm/dl (6.0-8.3)
--- NOTE | 2025-07-27 23:12 | Emergency Department Note ---
Impression & Plan GIB (gastrointestinal bleeding), Vomiting blood, Hypotension ED Provider Note NAME: VINI [id number] ERIKA AGE: 85 SEX: M : 1940 ARRIVES VIA: Ambulance INFORMANT: Patient ED PROVIDER(S): Teddy Garcia DO CHIEF COMPLAINT: Hematemesis, dark tarry stools HPI: Patient is an 85-year-old male who presents to the ER with a past medical history of chronic Mora, GI bleed for black/dark tarry stools and vomiting blood. Patient notes that he was doing fine until this morning. He started noticing black tarry stools. He had 3-4 episodes of this. This afternoon he had several episodes where he vomited dark blood. She denies any blood thinners. No headache or change in vision. No chest pain or shortness of breath. He admits to belly pain in combination with this. No dysuria, urgency or frequency. No other exacerbating or remitting factors. ADDITIONAL HISTORY OBTAINED: Per HPI Chronic Medical/Social Conditions Affecting Care: Per HPI PAST MEDICAL HISTORY:See Below PAST SURGICAL HISTORY:See Below FAMILY HISTORY:See Below SOCIAL HISTORY:See Below HOME MEDICATIONS:See Below ALLERGIES:See Below VITALS:See Below PHYSICAL EXAMINATION: GENERAL: Sitting up in bed, alert, dark blood on chin EYE EXAM: normal conjunctiva. OROPHARYNX: no exudate, no erythema, lips, buccal mucosa, and tongue normal and mucous membranes are moist NECK: supple, no nuchal rigidity, no adenopathy, non-tender LUNGS: Clear to auscultation. Normal chest wall mechanics HEART: no murmurs, S1 normal and S2 normal ABDOMEN: abdomen soft, non-tender, normo-active bowel sounds, no masses, no rebound or guarding. UPPER EXTREMITIES: upper extremities are grossly normal. LOWER EXTREMITIES: No pitting edema. NEURO EXAM: Normal sensorium, cranial nerves II-XII grossly intact, normal speech, no gross weakness of arms, no gross weakness of legs. MEDICAL DECISION MAKING: Patient is an 85-year-old male who presents to the ER with a past medical history of chronic Mora, GI bleed for black/dark tarry stools and vomiting blood. IV was established blood work is obtained. Labs show leukocytosis 19,000. Hemoglobin 12.5. CMP with a potassium of 5.2 and a significantly elevated BUN at 59 likely consistent with a GI bleed. LFTs and bilirubin is unremarkable. Patient was typed and crossed. Upon arrival systolic pressures were 70 for EMS. There were 90s here. We obtained 1 unit of uncrossed blood and obtain consent was given here in the ER. Patient was placed on Protonix drip and bolus. He was given IV fluids. CT was obtained and I discussed the findings and presentation with Dr. Brady from gastroenterology. Recommends holding on scoping at this time. If he deteriorates he will come in. I discussed the case with Dr. Mercado for further evaluation management and treatment. Consults/Care Managements Discussions: Per [facility] Triage Nursing notes reviewed. Limited review of prior medical records performed Vital Signs: reviewed and remarkable for no significant abnormalities Differential diagnosis: Diverticulosis, AVM, coagulopathy, colitis, inflammatory bowel disease, malignancy, [place] tear, esophagitis, peptic ulcer disease, variceal bleed, gastritis, epistaxis, fissure, hemorrhoids, as well as other pathologies. ER treatment provided: See below Diagnostics interpreted by me include EKG and cardiac monitoring as listed below: -Cardiac Monitoring: An order was placed for continuous cardiac monitoring. The monitor shows a rate of 90 with sinus rhythm. -ECG: Sinus tachycardia rate of 101 Left axis Right bundle branch block QTc 492 -Laboratory studies:Interpreted by me as stated above in MDM and shown below. Imaging studies: Xrays: As interpreted by me:none CTs show: CT abdomen pelvis per my pulmonary interpretation shows no obvious bowel obstruction but distended stomach CT Abdo pelvis per radiologist described above Procedures:none Critical Care: I have personally spent 33 minutes of critical care time in the direct management of this patient. This includes bedside care, interpretation of diagnostic studies, and testing, discussion with consultants, patient, and family members, and other required patient management activities. This 33 minutes is in excess of all separately billable procedures. Past Med/Surg History Problem List (Updated 07/27/25 @ 23:12 by Teddy Garcia DO) Hypotension (Acute) Vomiting blood (Acute) GIB (gastrointestinal bleeding) (Acute) Leukocytosis (Acute) Acute urinary retention (Acute) Complication of Mora catheter (Acute) Acute ulcer of stomach & intestines with bleeding/perforation Hyperglycemia (Acute) Hyperkalemia (Acute) Abdominal pain Abnormal CT scan, small bowel (Acute) Mucosal abnormality of duodenum (Acute) Rectal bleeding Hydronephrosis Urinary retention Medical History (Updated 07/27/25 @ 23:12 by Teddy Garcia DO) Encounter for pre-operative examination Diverticular hemorrhage GI bleeding Stomach ulcer Diabetes Surgical History (Updated 09/17/24 @ 14:57 by Anibal Zhang MD) S/P rotator cuff repair Family History Other No significant family history Social History Smoking Status: Current some day smoker Tobacco Type: E-cigarettes / Vaping Do You Dip or Chew Tobacco: Yes; Hx Alcohol Use: No Hx Substance Use: No Preferred Language: Indonesian Communication Ability: Unable Electrocardiogram Technician Required: No Beliefs That Will Affect Care: None Current Living Situation Comment: [facility] Feels Safe at Home: Yes Assistive Devices: None Allergies Allergies Allergy/AdvReac Type Severity Reaction Status Date / Time No Known Allergies Allergy Unverified 07/27/25 22:51 Home Meds Home Medications Medication Instructions Recorded Confirmed atorvastatin 40 mg tablet 40 mg PO HS 12/06/18 07/27/25 tamsulosin 0.4 mg capsule 0.4 mg PO HS 12/06/18 07/27/25 lisinopril 20 mg tablet 20 mg PO DAILY 09/12/24 07/27/25 albuterol sulfate 90 mcg/actuation 2 puff inhalation QID PRN 07/27/25 07/27/25 aerosol inhaler Shortness Of Breath ciprofloxacin HCl 250 mg tablet 500 mg PO BID 07/27/25 07/27/25 glipizide 2.5 mg tablet 2.5 mg PO DAILY 07/27/25 07/27/25 Previous Rx's Medication Instructions Recorded dutasteride 0.5 mg capsule 0.5 mg PO DAILY #90 caps 07/08/23 (Avodart) Results & Data (ED) Vital Signs Vital Signs - 24 hr 07/27/25 21:19 07/27/25 21:19 07/27/25 21:31 Temperature 36.9 C Temperature Source Oral Pulse Rate 108 H 107 H Respiratory Rate 20 Blood Pressure 91/71 L Blood Pressure Mean 77 Pulse Oximetry 100 100 Oxygen Delivery Method Room Air Room Air Sepsis Recent Fever Within 48 Hours No Sepsis New/Unexplained Change in Mental Status N/A Sepsis Action Taken by Nursing No Action Required 07/27/25 21:55 07/27/25 22:07 07/27/25 22:24 Temperature 36.5 C 36.6 C Temperature Source Oral Oral Pulse Rate 95 H 99 H Respiratory Rate 24 21 Blood Pressure 131/72 128/72 Blood Pressure Mean 91 90 Pulse Oximetry 100 95 95 Oxygen Delivery Method Room Air Sepsis Recent Fever Within 48 Hours Sepsis New/Unexplained Change in Mental Status Sepsis Action Taken by Nursing 07/27/25 22:39 Temperature 36.7 C Temperature Source Oral Pulse Rate 93 H Respiratory Rate 21 Blood Pressure 110/57 L Blood Pressure Mean 74 Pulse Oximetry 94 Oxygen Delivery Method Sepsis Recent Fever Within 48 Hours Sepsis New/Unexplained Change in Mental Status Sepsis Action Taken by Nursing Laboratory Data 07/27/25 21:37 07/27/25 21:37 Lab Results 07/27/25 07/27/25 Range/Units 21:37 21:38 WBC 19.43 H (4.8-10.8) K/ul RBC 4.07 L (4.70-6.10) M/uL Hgb 12.5 L (14.0-18.0) g/dL POC Hgb 12.9 L (14.0-18.0) g/dl Hct 36.0 L (42.0-52.0) % POC Hct 38 L (42-52) % MCV 88.5 (80.0-100.0) fL MCH 30.7 (25.0-34.0) pg MCHC 34.7 (32.0-36.0) g/dL RDW Std Deviation 45.3 (36.4-46.3) fL RDW Coeff of Star 13.9 (11.5-14.5) % Plt Count 202 (130-400) K/uL MPV 12.2 (9.4-12.4) fL Immature Gran % (Auto) 0.8 % Neut % (Auto) 84.8 % Lymph % (Auto) 7.9 % [place] % (Auto) 6.3 % Eos % (Auto) 0.0 % Baso % (Auto) 0.2 % Neut # (Auto) 16.47 H (1.40-6.50) K/uL Lymph # (Auto) 1.54 (1.20-3.40) K/uL [place] # (Auto) 1.23 H (0.11-0.59) K/uL Eos # (Auto) 0.00 (0.00-0.50) K/uL Baso # (Auto) 0.04 (0.00-0.20) K/uL Immature Gran # (Auto) 0.15 (0.01-0.20) K/uL PT 11.8 (9.0-12.0) Seconds INR 1.1 (0.9-1.1) APTT 23 (21-31) Seconds PTT Ratio 0.8 POC Sodium 137 (135-144) mmol/L Sodium 138 (136-145) mmol/L POC Potassium 5.2 H (3.3-5.0) mmol/L Potassium 5.2 H (3.5-5.1) mmol/L POC Chloride 99 L (101-112) mmol/L Chloride 100 (98-107) mmol/L Carbon Dioxide 27 (21-32) mmol/L POC Total CO2 25 (24-31) mmol/L Anion Gap 11 (3-11) POC Anion Gap 18.0 (16-25) mmol/L POC BUN 54 H (7-18) mg/dl BUN 59 H D (6-23) mg/dl Creatinine 1.77 H D (0.6-1.4) mg/dl POC Creatinine 1.8 H (0.6-1.3) mg/dl Est Cr Clr Drug Dosing 26.5 ml/min eGFR 36.71 BUN/Creatinine Ratio 33.3 H (10-20) Glucose 280 H (70-99(Fasting)) mg/dl POC Glucose (other) 255 H (70-99) mg/dl Calcium 8.6 (8.6-10.3) mg/dl POC Ioniz Calcium Nicole 1.02 L (1.12-1.32) mmol/l Total Bilirubin 0.5 (0.2-1.0) mg/dl AST 15 (13-39) U/L ALT 16 (7-52) U/L Alkaline Phosphatase 86 (34-104) U/L Total Protein 5.8 L (6.0-8.3) gm/dl Albumin 2.9 L (3.4-5.0) gm/dl Globulin 2.9 (2.5-4.0) gm/dl Albumin/Globulin Ratio 1.0 (0.9-2) Blood Type A Positive Antibody Screen NEGATIVE Crossmatch See Detail Administered Medications Pantoprazole Sodium 40 mg/ (Dextrose) 100 mls @ 20 mls/hr IV Q5H FATIMAH Stop: 08/26/25 21:44 Last Admin: 07/27/25 22:20 Dose: 8 mg/hr, 20 mls/hr Documented By: MED Discontinued Medications Sodium Chloride (Nss) 1,000 mls @ 999 mls/hr IV .Q1H1M FATIMAH Stop: 07/27/25 22:30 Last Infusion: 07/27/25 22:41 Dose: Infused Documented By: punch hand: 07/27/25 21:48 Dose: 999 mls/hr Documented By: MED Pantoprazole Sodium 80 mg/ (Dextrose) 120 mls @ 480 mls/hr IV NOW ONE Stop: 07/27/25 21:43 Last Infusion: 07/27/25 22:41 Dose: Infused Documented By: punch hand: 07/27/25 22:04 Dose: 480 mls/hr Documented By: MED Ioversol (Optiray 320 100ml) 93 ml IV ONCE ONE Stop: 07/27/25 21:58 Last Admin: 07/27/25 21:57 Dose: 93 ml Documented By: JOSE L Metoclopramide HCl (Metoclopramide Hcl Inj 5 Mg/Ml 2 Ml Vial) 10 mg IV NOW STA Stop: 07/27/25 21:44 Last Admin: 07/27/25 21:48 Dose: 10 mg Documented By: MED Metoclopramide HCl (Metoclopramide Hcl Inj 5 Mg/Ml 2 Ml Vial) Confirm Administered Dose 10 mg .ROUTE .STK-MED ONE Stop: 07/27/25 21:45 Last Admin: 07/27/25 21:48 Dose: Not Given Documented By: MED Morphine Sulfate (Morphine Sulfate 4 Mg/Ml 1 Ml Carp\Vial) 3 mg IV NOW STA Stop: 07/27/25 22:07 Last Admin: 07/27/25 22:33 Dose: 3 mg Documented By: MED Pantoprazole Sodium (Pantoprazole Bolus/Drip) 1 each IV NOW STA Stop: 07/27/25 21:30 Last Admin: 07/27/25 22:25 Dose: Not Given Documented By: MED Imaging Data Radiologist's Impression: Abdomen/Pelvis CT 07/27/25 21:29 Exam(s): CT ABDOMEN + PELVIS With Contrast IV Amt: 93ML OPTIRAY 320 EXAM: CT Abdomen and Pelvis With Intravenous Contrast CLINICAL HISTORY: gi bleed. TECHNIQUE: Axial computed tomography images of the abdomen and pelvis with intravenous contrast. CTDI is 14.74 mGy and DLP is 771.14 mGy-cm. Automated exposure control was utilized for the study. A dose lowering technique was utilized adhering to the principles of ALARA. CONTRAST: Patient received 93ML OPTIRAY 320 of IV contrast COMPARISON: No relevant prior studies available. FINDINGS: Lung bases: Normal. No mass. No consolidation. ABDOMEN: Liver: No active intraluminal bleeding noted on this single portal venous phase examination. Gallbladder and bile ducts: Normal. No calcified stones. No ductal dilation. Pancreas: Pancreas is atrophic in appearance. There is a cyst in the proximal tail of the pancreas, estimated at 13 by 16 x 16 mm. No ductal dilation. Spleen: The spleen is absent. Adrenals: Normal. No mass. Kidneys and ureters: There are multiple cysts noted involving both kidneys, more numerous on the right. The largest cyst inferiorly measures 7 x 6.1 x 7.1 cm. No obvious internal solid components noted. The kidneys demonstrate normal enhancement without pyelonephritis or hydronephrosis. Stomach and bowel: The stomach and duodenum are prominently distended with fluid. There is retained hyperdense material in the dependent stomach. There is also some hyperdense material in the distal horizontal portion of the duodenum near the ligament of Treitz. In addition, there is abnormal fat stranding surrounding the duodenum in the duodenal diverticulum near the junction of the descending with the distal horizontal segment. Surrounding nonspecific presumably reactive lymph nodes adjacent to the duodenum. The small bowel is otherwise unremarkable. No bowel obstruction. No definite asymmetric bowel mucosal abnormality, accounting for limitations with respiratory artifact. Mild stool burden. Diverticulosis. PELVIS: Appendix: No findings to suggest acute appendicitis. Bladder: A Mora catheter is noted in the bladder which is predominantly decompressed. Bladder wall thickening is of uncertain clinical significance with decompression. Reproductive: Unremarkable as visualized. ABDOMEN and PELVIS: Intraperitoneal space: Normal. No free air. No significant fluid collection. Bones/joints: No acute fracture. No dislocation. Soft tissues: Normal. Vasculature: Fusiform ectasia of the infrarenal aorta, measuring 2.5 x 2.6 cm with atherosclerotic calcification. No dissection or acute periaortic abnormality. Lymph nodes: See above. IMPRESSION: 1. The stomach and duodenum are prominently distended with fluid. There is retained hyperdense material in the dependent stomach. There is also some hyperdense material in the distal horizontal portion of the duodenum near the ligament of Treitz. In addition, there is abnormal fat stranding surrounding the duodenum in the duodenal diverticulum near the junction of the descending with the distal horizontal segment. Surrounding nonspecific presumably reactive lymph nodes adjacent to the duodenum. Findings are most consistent with duodenitis. No abscess or perforation. 2. No active intraluminal bleeding noted on this single portal venous phase examination. 3. Pancreas is atrophic in appearance. There is a cyst in the proximal tail of the pancreas, estimated at 13 by 16 x 16 mm. ACR White Paper guidelines (Sydnie et al. JACR 2017; 14(7):911-923) suggest a contrast- enhanced, pancreas-protocol abdominal CT or MR in 2 years. Electronically signed by: Stevie Baker MD 07/27/25 22:16 PM Discharge Plan Visit Data Chief Complaint: GI Bleed Stated Complaint: BLACK STOOLS, COFFEE GROUND EMESIS, LETHARGIC ED Provider: Teddy Garcia Discharge Problem: GIB (gastrointestinal bleeding), Vomiting blood, Hypotension Condition: Critical Forms Stand Alone Forms: My [facility] [employer] Prescriptions Prescriptions: No Action dutasteride [Avodart] 0.5 mg capsule 0.5 mg PO DAILY Qty: 90 3RF atorvastatin 40 mg Tablet 40 mg PO HS tamsulosin 0.4 mg Capsule 0.4 mg PO HS lisinopril 20 mg Tablet 20 mg PO DAILY albuterol sulfate 90 mcg/actuation Hfa Aerosol Inhaler 2 puff INHALATION QID PRN (Reason: Shortness Of Breath) glipizide 2.5 mg Tablet 2.5 mg PO DAILY ciprofloxacin HCl 250 mg Tablet 500 mg PO BID Rx Instructions: start 07/26/25 stop date 08/05/25 Referrals Referrals: [facility] BOOTH [Primary Care Provider] - Discharge Problem: GIB (gastrointestinal bleeding) Qualifiers: GI bleed type/associated pathology: unspecified gastrointestinal hemorrhage type Qualified Code(s): K92.2 - Gastrointestinal hemorrhage, unspecified Vomiting blood Qualifiers: Nausea presence: unspecified Qualified Code(s): K92.0 - Hematemesis Hypotension Qualifiers: Hypotension type: unspecified hypotension type Qualified Code(s): I95.9 - Hypotension, unspecified
--- NOTE | 2025-07-28 00:04 | History & Physical Report ---
Date of Service July 27, 2025 Assessment & Plan (1) GIB (gastrointestinal bleeding): Plan: 85-year-old male coming from long-term with past medical history significant for hypertension, hyperlipidemia, urinary retention and bilateral hydronephrosis on chronic Mora catheter presents with black stools and Vomiting blood. Yesterday patient was in the ER for hematuria. Seems his Mora was removed without completely deflation which caused the hematuria. ER discussed with urology and his catheter was changed to 20 Dutch and after that his bleeding stopped. His UA was positive and he was given a dose of Rocephin and discharged on Cipro. Today patient started to have some abdominal discomfort. And had some black stools. And also was vomiting blood. And was brought to the hospital. His blood pressure was soft. After fluids blood pressure improved. He is getting unit of PRBC now. ER notified GI. Patient is on Protonix drip. Denies any dizziness. Denies headache. Has some runny nose and cough which is usual for him. No fevers. Denies any chest pain. Has his usual shortness of breath. States his Mora catheter is working okay. Says he can ambulate some distance with cane. Afebrile. Patient was here in September 2024 with blood per rectum. At that time his hemoglobin dropped to 5 range and received 3 months of PRBC. At that time EGD showed 1 oozing cratered ulcer with adherent clot in the jejunum which was treated with epinephrine and cauterization. His hemoglobin remained stable and was discharged back. At the time he was noted to have hyperkalemia treated with calcium gluconate and dextrose and IV insulin. GI bleed Vomiting blood Melena Hypotension improved with fluids Hemoglobin 12.5 on presentation ER ordered 2 units of PRBC N.p.o., IV fluids CT scan shows duodenitis On Protonix drip GI notified by ER Close monitor hemodynamics Close monitoring in the telemetry, if needed will transfer to ICU GI consult Leukocytosis UTI Will follow cultures from 07/26/25 Empiric Zosyn Hyperkalemia Potassium 5.2 Hold lisinopril Getting fluids had hyperkalemia last admit also. May need to stop lisinopril. Follow repeat labs LOGAN Creatinine 1.7 Holding lisinopril Getting fluids and PRBC Will follow repeat labs Pancreatic cyst On CAT scan Needs follow-up Hypertension Holding lisinopril for hypotension and LOGAN Will monitor Diabetes Hold p.o. medications Sliding scale Will monitor History of urinary retention Bilateral hydronephrosis On chronic Mora On Flomax and dutasteride Hyperlipidemia On statin Restart when able to DVT prophylaxis SCDs Disposition Telemetry Full code History of Present Illness Chief Complaint: GI bleed Primary Care Provider: EMMY Bhatt 85-year-old male coming from long-term with past medical history significant for hypertension, hyperlipidemia, urinary retention and bilateral hydronephrosis on chronic Mora catheter presents with black stools and Vomiting blood. Yesterday patient was in the ER for hematuria. Seems his Mora was removed without completely deflation which caused the hematuria. ER discussed with urology and his catheter was changed to 20 Dutch and after that his bleeding stopped. His UA was positive and he was given a dose of Rocephin and discharged on Cipro. Today patient started to have some abdominal discomfort. And had some black stools. And also was vomiting blood. And was brought to the hospital. His blood pressure was soft. After fluids blood pressure improved. He is getting u nit of PRBC now. ER notified GI. Patient is on Protonix drip. Denies any dizziness. Denies headache. Has some runny nose and cough which is usual for him. No fevers. Denies any chest pain. Has his usual shortness of breath. States his Mora catheter is working okay. Says he can ambulate some distance with cane. Afebrile. Patient was here in September 2024 with blood per rectum. At that time his hemoglobin dropped to 5 range and received 3 months of PRBC. At that time EGD showed 1 oozing cratered ulcer with adherent clot in the jejunum which was treated with epinephrine and cauterization. His hemoglobin remained stable and was discharged back. At the time he was noted to have hyperkalemia treated with calcium gluconate and dextrose and IV insulin. Past medical history. As mentioned above. Past surgical history. Says he had right shoulder surgery. Social history. Smokes 1 cigarettes daily. Denies alcohol. Denies drug use. Family history. No significant family history. Allergies Allergy/AdvReac Type Severity Reaction Status Date / Time No Known Allergies Allergy Unverified 07/27/25 22:51 Home Medications Medication Instructions Recorded Confirmed Type atorvastatin 40 mg tablet 40 mg PO HS 12/06/18 07/27/25 History tamsulosin 0.4 mg capsule 0.4 mg PO HS 12/06/18 07/27/25 History dutasteride 0.5 mg capsule 0.5 mg PO DAILY #90 caps 07/08/23 07/27/25 Rx (Avodart) lisinopril 20 mg tablet 20 mg PO DAILY 09/12/24 07/27/25 History albuterol sulfate 90 mcg/actuation 2 puff inhalation QID PRN 07/27/25 07/27/25 History aerosol inhaler Shortness Of Breath ciprofloxacin HCl 250 mg tablet 500 mg PO BID 07/27/25 07/27/25 History glipizide 2.5 mg tablet 2.5 mg PO DAILY 07/27/25 07/27/25 History Past Med/Surg History Problem List (Updated 07/27/25 @ 23:12 by Teddy Garcia DO) Hypotension (Acute) Vomiting blood (Acute) GIB (gastrointestinal bleeding) (Acute) Leukocytosis (Acute) Acute urinary retention (Acute) Complication of Mora catheter (Acute) Acute ulcer of stomach & intestines with bleeding/perforation Hyperglycemia (Acute) Hyperkalemia (Acute) Abdominal pain Abnormal CT scan, small bowel (Acute) Mucosal abnormality of duodenum (Acute) Rectal bleeding Hydronephrosis Urinary retention Medical History (Updated 07/27/25 @ 23:12 by Teddy Garcia DO) Encounter for pre-operative examination Diverticular hemorrhage GI bleeding Stomach ulcer Diabetes Surgical History (Updated 09/17/24 @ 14:57 by Anibal Zhang MD) S/P rotator cuff repair Family History Other No significant family history Social History Smoking Status: Current every day smoker Tobacco Type: Cigarettes Do You Dip or Chew Tobacco: Yes; Hx Alcohol Use: No Hx Substance Use: No Preferred Language: Cypriot Communication Ability: Unable Legal Billing Analyst Required: No Beliefs That Will Affect Care: None Current Living Situation: Other Current Living Situation Comment: [facility] Feels Safe at Home: Yes Assistive Devices: Denture - Upper, Denture - Lower, Glasses and Wheelchair Review of Systems Review of Systems: All systems reviewed & are unremarkable except as noted in HPI & below Physical Exam Physical Exam: General- Not in acute distress Head- atraumatic Eyes- PERRL. ENT- oropharynx dry blood seen Neck- supple, no JVD. Lungs- clear to auscultation no wheezing or crackles Heart- regular rhythm; no murmur, no gallop. Abdomen- normal bowel sounds, soft, nontender, no distension Extremities- no pretibial edema, no erythema seen Neuro- alert, oriented PERRL, no facial palsy; no dysarthria; moves extremities Results & Data Results & Data Vital Signs (Past 12 Hours) Vital Signs Temp Pulse Resp BP Pulse Ox O2 Del Method 07/27/25 23:09 98 H 24 91/54 L 95 07/27/25 22:39 36.7 C 93 H 21 110/57 L 94 07/27/25 22:24 36.6 C 99 H 21 128/72 95 07/27/25 22:07 36.5 C 95 H 24 131/72 95 07/27/25 21:55 100 Room Air 07/27/25 21:31 107 H 07/27/25 21:19 100 Room Air 07/27/25 21:19 36.9 C 108 H 20 91/71 L 100 Room Air Diagnostic Findings Laboratory Results WBC 19.43 K/ul (4.8-10.8) H 07/27/25 21:37 RBC 4.07 M/uL (4.70-6.10) L 07/27/25 21:37 Hgb 12.5 g/dL (14.0-18.0) L 07/27/25 21:37 POC Hgb 12.9 g/dl (14.0-18.0) L 07/27/25 21:38 Hct 36.0 % (42.0-52.0) L 07/27/25 21:37 POC Hct 38 % (42-52) L 07/27/25 21:38 MCV 88.5 fL (80.0-100.0) 07/27/25 21:37 MCH 30.7 pg (25.0-34.0) 07/27/25 21:37 MCHC 34.7 g/dL (32.0-36.0) 07/27/25 21:37 RDW Std Deviation 45.3 fL (36.4-46.3) 07/27/25 21:37 RDW Coeff of Star 13.9 % (11.5-14.5) 07/27/25 21:37 Plt Count 202 K/uL (130-400) 07/27/25 21:37 MPV 12.2 fL (9.4-12.4) 07/27/25 21:37 Immature Gran % (Auto) 0.8 % 07/27/25 21:37 Neut % (Auto) 84.8 % 07/27/25 21:37 Lymph % (Auto) 7.9 % 07/27/25 21:37 [place] % (Auto) 6.3 % 07/27/25 21:37 Eos % (Auto) 0.0 % 07/27/25 21:37 Baso % (Auto) 0.2 % 07/27/25 21: Neut # (Auto) 16.47 K/uL (1.40-6.50) H 07/27/25 21:37 Lymph # (Auto) 1.54 K/uL (1.20-3.40) 07/27/25 21:37 [place] # (Auto) 1.23 K/uL (0.11-0.59) H 07/27/25 21:37 Eos # (Auto) 0.00 K/uL (0.00-0.50) 07/27/25 21:37 Baso # (Auto) 0.04 K/uL (0.00-0.20) 07/27/25 21:37 Immature Gran # (Auto) 0.15 K/uL (0.01-0.20) 07/27/25 21:37 PT 11.8 Seconds (9.0-12.0) 07/27/25 21:37 INR 1.1 (0.9-1.1) 07/27/25 21:37 APTT 23 Seconds (21-31) 07/27/25 21:37 PTT Ratio 0.8 07/27/25 21:37 POC Sodium 137 mmol/L (135-144) 07/27/25 21:38 Sodium 138 mmol/L (136-145) 07/27/25 21:37 POC Potassium 5.2 mmol/L (3.3-5.0) H 07/27/25 21:38 Potassium 5.2 mmol/L (3.5-5.1) H 07/27/25 21:37 POC Chloride 99 mmol/L (101-112) L 07/27/25 21:38 Chloride 100 mmol/L (98-107) 07/27/25 21:37 Carbon Dioxide 27 mmol/L (21-32) 07/27/25 21:37 POC Total CO2 25 mmol/L (24-31) 07/27/25 21:38 Anion Gap 11 (3-11) 07/27/25 21:37 POC Anion Gap 18.0 mmol/L (16-25) 07/27/25 21:38 POC BUN 54 mg/dl (7-18) H 07/27/25 21:38 BUN 59 mg/dl (6-23) H D 07/27/25 21:37 Creatinine 1.77 mg/dl (0.6-1.4) H D 07/27/25 21:37 POC Creatinine 1.8 mg/dl (0.6-1.3) H 07/27/25 21:38 Est Cr Clr Drug Dosing 26.5 ml/min 07/27/25 21:37 eGFR 36.71 07/27/25 21:37 BUN/Creatinine Ratio 33.3 (10-20) H 07/27/25 21:37 Glucose 280 mg/dl (70-99(Fasting)) H 07/27/25 21:37 POC Glucose (other) 255 mg/dl (70-99) H 07/27/25 21:38 Calcium 8.6 mg/dl (8.6-10.3) 07/27/25 21:37 POC Ioniz Calcium Nicole 1.02 mmol/l (1.12-1.32) L 07/27/25 21:38 Total Bilirubin 0.5 mg/dl (0.2-1.0) 07/27/25 21:37 AST 15 U/L (13-39) 07/27/25 21:37 ALT 16 U/L (7-52) 07/27/25 21:37 Alkaline Phosphatase 86 U/L (34-104) 07/27/25 21:37 Total Protein 5.8 gm/dl (6.0-8.3) L 07/27/25 21:37 Albumin 2.9 gm/dl (3.4-5.0) L 07/27/25 21:37 Globulin 2.9 gm/dl (2.5-4.0) 07/27/25 21:37 Albumin/Globulin Ratio 1.0 (0.9-2) 07/27/25 21:37 Blood Type A Positive 07/27/25 21:38 Antibody Screen NEGATIVE 07/27/25 21:38 Crossmatch See Detail 07/27/25 21:38 Impressions Abdomen/Pelvis CT 07/27/25 21:29 Exam(s): CT ABDOMEN + PELVIS With Contrast IV Amt: 93ML OPTIRAY 320 EXAM: CT Abdomen and Pelvis With Intravenous Contrast CLINICAL HISTORY: gi bleed. TECHNIQUE: Axial computed tomography images of the abdomen and pelvis with intravenous contrast. CTDI is 14.74 mGy and DLP is 771.14 mGy-cm. Automated exposure control was utilized for the study. A dose lowering technique was utilized adhering to the principles of ALARA. CONTRAST: Patient received 93ML OPTIRAY 320 of IV contrast COMPARISON: No relevant prior studies available. FINDINGS: Lung bases: Normal. No mass. No consolidation. ABDOMEN: Liver: No active intraluminal bleeding noted on this single portal venous phase examination. Gallbladder and bile ducts: Normal. No calcified stones. No ductal dilation. Pancreas: Pancreas is atrophic in appearance. There is a cyst in the proximal tail of the pancreas, estimated at 13 by 16 x 16 mm. No ductal dilation. Spleen: The spleen is absent. Adrenals: Normal. No mass. Kidneys and ureters: There are multiple cysts noted involving both kidneys, more numerous on the right. The largest cyst inferiorly measures 7 x 6.1 x 7.1 cm. No obvious internal solid components noted. The kidneys demonstrate normal enhancement without pyelonephritis or hydronephrosis. Stomach and bowel: The stomach and duodenum are prominently distended with fluid. There is retained hyperdense material in the dependent stomach. There is also some hyperdense material in the distal horizontal portion of the duodenum near the ligament of Treitz. In addition, there is abnormal fat stranding surrounding the duodenum in the duodenal diverticulum near the junction of the descending with the distal horizontal segment. Surrounding nonspecific presumably reactive lymph nodes adjacent to the duodenum. The small bowel is otherwise unremarkable. No bowel obstruction. No definite asymmetric bowel mucosal abnormality, accounting for limitations with respiratory artifact. Mild stool burden. Diverticulosis. PELVIS: Appendix: No findings to suggest acute appendicitis. Bladder: A Mora catheter is noted in the bladder which is predominantly decompressed. Bladder wall thickening is of uncertain clinical significance with decompression. Reproductive: Unremarkable as visualized. ABDOMEN and PELVIS: Intraperitoneal space: Normal. No free air. No significant fluid collection. Bones/joints: No acute fracture. No dislocation. Soft tissues: Normal. Vasculature: Fusiform ectasia of the infrarenal aorta, measuring 2.5 x 2.6 cm with atherosclerotic calcification. No dissection or acute periaortic abnormality. Lymph nodes: See above. IMPRESSION: 1. The stomach and duodenum are prominently distended with fluid. There is retained hyperdense material in the dependent stomach. There is also some hyperdense material in the distal horizontal portion of the duodenum near the ligament of Treitz. In addition, there is abnormal fat stranding surrounding the duodenum in the duodenal diverticulum near the junction of the descending with the distal horizontal segment. Surrounding nonspecific presumably reactive lymph nodes adjacent to the duodenum. Findings are most consistent with duodenitis. No abscess or perforation. 2. No active intraluminal bleeding noted on this single portal venous phase examination. 3. Pancreas is atrophic in appearance. There is a cyst in the proximal tail of the pancreas, estimated at 13 by 16 x 16 mm. ACR White Paper guidelines (Sydnie, et al. JACR 2017; 14(7):911-923) suggest a contrast- enhanced, pancreas-protocol abdominal CT or MR in 2 years. Electronically signed by: Stevie Baker MD 07/27/25 22:16 PM ECG Additional Comments: ECG. Sinus tachycardia with occasional PVCs at rate of 101. Right bundle branch block. Possible lateral infarct age-indeterminate. QTc 492 Code Status & VTE Plan VTE Prophylaxis Plan VTE Prophylaxis will be ordered: Yes (1) GIB (gastrointestinal bleeding) GI bleed type/associated pathology: unspecified gastrointestinal hemorrhage type Qualified Code(s): K92.2 - Gastrointestinal hemorrhage, unspecified
[2025-07-28] MEDS ORDERED: GLUCAGON FOR INJ 1 MG VIAL SQ PRN (01:10)
[2025-07-28] MEDS ORDERED: CARBOHYDRATES FOR HYPOGLYCEMIA PO PRN (01:10)
[2025-07-28] MEDS ORDERED: DEXTROSE 50% 50 ML SYRINGE IV PRN (01:10)
[2025-07-28] MEDS ORDERED: GLUCOSE 10 TAB/TUBE PO PRN (01:10)
[2025-07-28] MEDS ORDERED: NITROGLYCERIN SL 0.4 MG/TAB TAB SL PRN (01:10)
[2025-07-28] MEDS ORDERED: GLUCOSE 40% GEL 15 GM TUBE PO PRN (01:10)
[2025-07-28] MEDS ORDERED: ACETAMINOPHEN 1,000 MG/100 ML VIAL IV PRN (01:10)
[2025-07-28] MEDS ORDERED: ALBUTEROL HFA 8 GM INHALER INH PRN (01:10)
[2025-07-28] MEDS: PIPERACILLIN/TAZOBACTAM 4.5 GM/100 ML BAG IV STA (01:12)
[2025-07-28] MEDS: INSULIN ASPART PER UNIT CHARGE SC SCH ×2 (01:29→12:22)
[2025-07-28] MEDS: SODIUM CHLORIDE 0.9% 1,000 ML IV SCH (01:29)
[2025-07-28 01:49] LABS: Hematocrit (blood only) 32.8 % (42.0-52.0); Hemoglobin 10.5 g/dL (14.0-18.0)
[2025-07-28] MEDS: SODIUM CHLORIDE 0.9% 500 ML IV ONE (02:41)
[2025-07-28 06:49] LABS: Hematocrit (blood only) 32.5 % (42.0-52.0); Hemoglobin 10.7 g/dL (14.0-18.0); Immature Granulocytes # (auto) 0.14 K/uL (0.01-0.20); Immature Granulocytes % (auto) 0.8 %; Mean Corpuscular Hemoglobin 29.3 pg (25.0-34.0); Mean Corpuscular Volume 89.0 fL (80.0-100.0); Platelet Count 152 K/uL (130-400); RDW Standard Deviation 51.4 fL (36.4-46.3); Red Blood Count 3.65 M/uL (4.70-6.10); White Blood Count 17.80 K/ul (4.8-10.8)
[2025-07-28 07:09] LABS: Anion Gap 3.0 (3-11); Blood Urea Nitrogen 78.0 mg/dl (6-23); Calcium 7.1 mg/dl (8.6-10.3); Carbon Dioxide 23.0 mmol/L (21-32); Chloride 113.0 mmol/L (98-107); Creatinine Clr Calc Pharmacy 33.8 ml/min; Glucose 176.0 mg/dl (70-99(Fasting)); Hemoglobin A1C 7.8 % (4.5-5.6); Magnesium 1.9 mg/dl (1.7-2.4); Potassium 4.9 mmol/L (3.5-5.1); Sodium 139.0 mmol/L (136-145)
[2025-07-28] MEDS: PIPERACILLIN/TAZOBACTAM 4.5 GM/100 ML BAG IV SCH (07:56)
[2025-07-28] MEDS: FINASTERIDE 5 MG TAB PO SCH (08:02)
--- NOTE | 2025-07-28 09:59 | Gastrointestinal Consultation ---
Date of Consultation July 28, 2025 Assessment & Plan (1) Melena: (2) GI bleeding: (3) History of peptic ulcer disease: (4) Abdominal pain: (5) Abnormal CT scan, small bowel: (6) Vomiting blood: (7) Pancreatic cyst: IMPRESSION: 85-year-old with a prior history of gastrointestinal bleed including a jejunal ulcer status post therapeutic intervention presenting with hematemesis, melena and subsequent anemia. Plan PLAN: -- Patient is hemodynamically stable at the present time without any obvious evidence of gastrointestinal bleeding. Emergent upper endoscopy is not needed at this time -- Continue twice daily IV PPI -- Will plan for enteroscopy 07/29/2025 in light of prior history of jejunal bleeding -- N.p.o. after midnight. Patient may be on clears now -- Based on review of labs as well as imaging there is no suggestion of portal hypertension and therefore octreotide is likely not necessary. -- Patient has stable pancreatic cyst. 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 MRI surveillance in 1 to 2 years is recommended Thank you for the courtesy of this consultation. Please let the GI team know if any immediate change in status. History of Present Illness Reason for Consultation: Gastrointestinal bleeding Attending Physician: Anel Chase MD History of Present Illness The patient is an 85-year-old gentleman with comorbidities including hypertension, hyperlipidemia, prediabetes, chronic urinary retention/bilateral hydronephrosis with chronic Mora catheter placement presenting to [facility] with complaints of black stools and associated abdominal discomfort. He also describes vomiting black type material ultimately prompting evaluation in the emergency department. He was previously seen in consultation 09/12/2024 where he presented with epigastric abdominal pain along with bright red blood per rectum. At that time CT imaging suggested duodenitis and a pancreatic IPMN. The patient had COLONOSCOPY 09/13/2024 showing a 10 mm polypoid lesion at the anus, normal terminal ileum, old red blood in the sigmoid and descending colon without active bleeding. He had simultaneous EGD which showed normal esophagus, gastritis status post biopsies and submucosal changes in the duodenum. Due to recurrent bleeding the patient underwent COLONOSCOPY 09/17/2024 which showed poor prep, blood in the entire colon, diverticulosis in the sigmoid colon, blood in the distal ileum. EGD was then again performed at that time sh owing normal esophagus, erosive gastropathy, normal duodenum and oozing jejunal ulcer with adherent clot which was injected and treated with bipolar cautery. Pathology from the above exam showed no evidence of H. pylori infection. On evaluation this morning the patient denies any further melena, hematemesis and he notes the abdominal pain is markedly decreased. He denies any NSAID use and is not on any chronic anticoagulation or blood thinner. He also does note recent hematuria from a challenging placement of a Mora catheter. Beyond this he denies any dysphagia, dyne aphasia, early satiety, unexplained weight loss. His hemoglobin at presentation was 12.5 down to 10.7 post 2 units of blood transfusion. He does not have any history of chronic liver disease. CT of the abdomen pelvis performed on admission showed moderate distention of the stomach and duodenum with fluid with retained hyperdense material in the stomach, abnormal fat stranding surrounding the duodenum and the duodenal diverticulum near the junction of the descending, no active intraluminal bleeding, atrophic pancreas with a cyst in the proximal tail the pancreas estimated to be 13 mm x 16 mm x 16 mm for which a contrast-enhanced pancreatic protocol abdominal CT or MR was advised in 2 years. Allergies Allergy/AdvReac Type Severity Reaction Status Date / Time No Known Allergies Allergy Unverified 07/27/25 22:51 Home Medications Medication Instructions Recorded Confirmed Type atorvastatin 40 mg tablet 40 mg PO HS 12/06/18 07/27/25 History tamsulosin 0.4 mg capsule 0.4 mg PO HS 12/06/18 07/27/25 History dutasteride 0.5 mg capsule 0.5 mg PO DAILY #90 caps 07/08/23 07/27/25 Rx (Avodart) lisinopril 20 mg tablet 20 mg PO DAILY 09/12/24 07/27/25 History albuterol sulfate 90 mcg/actuation 2 puff inhalation QID PRN 07/27/25 07/27/25 History aerosol inhaler Shortness Of Breath ciprofloxacin HCl 250 mg tablet 500 mg PO BID 07/27/25 07/27/25 History glipizide 2.5 mg tablet 2.5 mg PO DAILY 07/27/25 07/27/25 History Patient History Medical History Encounter for pre-operative examination Diverticular hemorrhage GI bleeding Stomach ulcer Diabetes Surgical History S/P rotator cuff repair Family History Other No significant family history Social History Smoking Status: Current every day smoker Tobacco Type: Cigarettes Do You Dip or Chew Tobacco: Yes; Hx Alcohol Use: No Hx Substance Use: No Preferred Language: Occitan Communication Ability: Unable Mold 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 Required: No Beliefs That Will Affect Care: None Current Living Situation: Other Current Living Situation Comment: Longterm Feels Safe at Home: Yes Assistive Devices: Denture - Upper, Denture - Lower, Glasses and Wheelchair Review of Systems Review of Systems: All systems reviewed & are unremarkable except as noted in HPI & below Physical Exam Constitutional: WD/WN, vitals as above Eyes: + anicteric sclerae Respiratory: normal respiratory effort, lungs clear to auscultation Cardiovascular: RRR, no murmur, no edema Gastrointestinal (Abdomen): normal bowel sounds, soft, nontender, no hepatosplenomegaly Musculoskeletal: no cyanosis or clubbing, extremities motor strength 5/5 Neurologic: Alert and oriented x 3 nonfocal neurologic exam Results & Data Vital Signs (Past 12 Hours) Vital Signs Temp Pulse Pulse Resp BP BP Pulse Ox 07/28/25 08:35 36.8 C 67 18 121/66 93 07/28/25 05:11 36.6 C 57 L 18 102/57 L 98 07/28/25 05:06 36.6 C 57 L 15 102/57 L 97 07/28/25 04:06 36.6 C 62 15 92/51 L 98 07/28/25 04:04 36.6 C 60 15 92/51 L 98 07/28/25 03:36 36.6 C 69 14 91/53 L 94 07/28/25 03:21 36.4 C L 70 18 114/60 97 07/28/25 03:02 36.4 C L 79 16 86/50 L 97 07/28/25 02:36 88/44 L 97 07/28/25 02:02 36.8 C 72 18 90/45 L 97 07/28/25 01:55 07/28/25 01:15 80 07/28/25 00:55 36.9 C 81 20 115/58 L 95 07/28/25 00:50 37.2 C 94 H 18 105/58 L 97 07/28/25 00:09 37.2 C 94 H 18 105/58 L 97 07/27/25 23:09 98 H 24 91/54 L 95 07/27/25 22:39 36.7 C 93 H 21 110/57 L 94 07/27/25 22:24 36.6 C 99 H 21 128/72 95 07/27/25 22:07 36.5 C 95 H 24 131/72 95 07/27/25 21:55 100 O2 Del Method O2 Flow Rate 07/28/25 08:35 Nasal Cannula 2 07/28/25 05:11 07/28/25 05:06 07/28/25 04:06 2 07/28/25 04:04 2 07/28/25 03:36 2 07/28/25 03:21 2 07/28/25 03:02 2 07/28/25 02:36 Nasal Cannula 2 07/28/25 02:02 Nasal Cannula 2 07/28/25 01:55 Nasal Cannula 2 07/28/25 01:15 07/28/25 00:55 07/28/25 00:50 Room Air 07/28/25 00:09 07/27/25 23:09 07/27/25 22:39 07/27/25 22:24 07/27/25 22:07 07/27/25 21:55 Room Air PG Care Time/CCT Total # of Minutes Spent Total Time Spent with Patient: Total time spent is greater than 50% in coordination of care (as documented) at patient's floor/unit and/or counseling patient: [place] [address] IN/OBS CONSULT LVL 4,60M Patient Type New History Comprehensive Exam Detailed Medical Decision Making High Complexity Diagnoses Melena K92.1 GI bleeding K92.2 GI bleed type/associated pathology: unspecified gastrointestinal hemorrhage type History of peptic ulcer disease Z87.11 Pain of upper abdomen R10.10 Abdominal location: upper abdomen, unspecified Abnormal CT scan, small bowel R93.3 Hematemesis with nausea K92.0 Nausea presence: with nausea Pancreatic cyst K86.2 (2) GI bleeding GI bleed type/associated pathology: unspecified gastrointestinal hemorrhage type Qualified Code(s): K92.2 - Gastrointestinal hemorrhage, unspecified (4) Abdominal pain Abdominal location: upper abdomen, unspecified Qualified Code(s): R10.10 - Upper abdominal pain, unspecified (6) Vomiting blood Nausea presence: with nausea Qualified Code(s): K92.0 - Hematemesis
[2025-07-28 10:53] LABS: Hematocrit (blood only) 32.1 % (42.0-52.0); Hemoglobin 10.7 g/dL (14.0-18.0)
--- NOTE | 2025-07-28 11:01 | Hospitalist Progress Note ---
Date of Service July 28, 2025 Assessment & Plan (1) GIB (gastrointestinal bleeding): Plan: 85-year-old male coming from assisted with past medical history significant for hypertension, hyperlipidemia, urinary retention and bilateral hydronephrosis on chronic Mora catheter presents with black stools and Vomiting blood. Patient was here in September 2024 with blood per rectum. At that time his hemoglobin dropped to 5 range and received 3 months of PRBC. At that time EGD showed 1 oozing cratered ulcer with adherent clot in the jejunum which was treated with epinephrine and cauterization. Hi Upper GI bleed Hypotension improved with fluids Hemoglobin 12.5 on presentation S/p 2 units of PRBC in ER CT scan shows duodenitis Hb is stable in 10s today GI eval noted Continue clears and NPO PMN for endoscopy in AM Continue to monitor Hb Recent hematuria resolved Patient was in the ER for hematuria on 07/26/25. Seems his Mora was removed without completely deflation which caused the hematuria. ER discussed with urology and his catheter was changed to 20 Macedonian and after that his bleeding stopped. His UA was positive and he was given a dose of Rocephin and discharged on Cipro. Doubtful he has a true UTI Will continue empirical antibiotics for now and follow up cultures LOGAN Also had hypotension which has resolved with IVF Holding lisinopril for now Cr was 1.77 on admission. 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 Sliding scale Will monitor History of urinary retention Bilateral hydronephrosis On chronic Mora On Flomax and dutasteride Hyperlipidemia On statin DVT prophylaxis- SCDs Full code I spent a total of 50 minutes coordinating, documenting and providing care for this patient excluding time spent in performance of separately billed services Admission and Anticipated Discharge Date Admission Date: July 27, 2025 Subjective Patient seen and examined No more hematemesis so far Reports mild abd discomfort No other complaints on ROS Physical Exam Constitutional: + well hydrated; no acute distress Eyes: PERRL, conjunctivae normal, anicteric sclerae ENMT: external ear and nose normal, oropharynx normal Respiratory: normal respiratory effort, lungs clear to auscultation Cardiovascular: Rate/Rhythm: regular rate and regular rhythm Gastrointestinal (Abdomen): normal bowel sounds, soft, nontender, no hepatosplenomegaly Neurologic: PERRL, EOMI, accommodation nl, no face palsy, no dysarthria Psychiatric: A+Ox3, euthymic affect Results & Data Results & Data Vital Signs (Past 12 Hours) Vital Signs Temp Pulse Pulse Resp BP BP Pulse Ox 07/28/25 09:00 07/28/25 08:35 36.8 C 67 18 121/66 93 07/28/25 05:11 36.6 C 57 L 18 102/57 L 98 07/28/25 05:06 36.6 C 57 L 15 102/57 L 97 07/28/25 04:06 36.6 C 62 15 92/51 L 98 07/28/25 04:04 36.6 C 60 15 92/51 L 98 07/28/25 03:36 36.6 C 69 14 91/53 L 94 07/28/25 03:21 36.4 C L 70 18 114/60 97 07/28/25 03:02 36.4 C L 79 16 86/50 L 97 07/28/25 02:36 88/44 L 97 07/28/25 02:02 36.8 C 72 18 90/45 L 97 07/28/25 01:55 07/28/25 01:15 80 07/28/25 00:55 36.9 C 81 20 115/58 L 95 07/28/25 00:50 37.2 C 94 H 18 105/58 L 97 07/28/25 00:09 37.2 C 94 H 18 105/58 L 97 07/27/25 23:09 98 H 24 91/54 L 95 O2 Del Method O2 Flow Rate 07/28/25 09:00 Nasal Cannula, Oxymask 2 07/28/25 08:35 Nasal Cannula 2 07/28/25 05:11 07/28/25 05:06 07/28/25 04:06 2 07/28/25 04:04 2 07/28/25 03:36 2 07/28/25 03:21 2 07/28/25 03:02 2 07/28/25 02:36 Nasal Cannula 2 07/28/25 02:02 Nasal Cannula 2 07/28/25 01:55 Nasal Cannula 2 07/28/25 01:15 07/28/25 00:55 07/28/25 00:50 Room Air 07/28/25 00:09 07/27/25 23:09 Laboratory Results Abnormal lab results 07/27/25 07/27/25 07/28/25 Range/Units 21:37 21:38 01:17 WBC 19.43 H (4.8-10.8) K/ul RBC 4.07 L (4.70-6.10) M/uL Hgb 12.5 L (14.0-18.0) g/dL POC Hgb 12.9 L (14.0-18.0) g/dl Hct 36.0 L (42.0-52.0) % POC Hct 38 L (42-52) % RDW Std Deviation (36.4-46.3) fL RDW Coeff of Star (11.5-14.5) % Neut # (Auto) 16.47 H (1.40-6.50) K/uL Dundy # (Auto) 1.23 H (0.11-0.59) K/uL POC Potassium 5.2 H (3.3-5.0) mmol/L Potassium 5.2 H (3.5-5.1) mmol/L POC Chloride 99 L (101-112) mmol/L Chloride (98-107) mmol/L POC BUN 54 H (7-18) mg/dl BUN 59 H D (6-23) mg/dl Creatinine 1.77 H D (0.6-1.4) mg/dl POC Creatinine 1.8 H (0.6-1.3) mg/dl BUN/Creatinine Ratio 33.3 H (10-20) Glucose 280 H (70-99(Fasting)) mg/dl POC Glucose 247 H (70-99) mg/dl POC Glucose (other) 255 H (70-99) mg/dl Hemoglobin A1c (4.5-5.6) % Calcium (8.6-10.3) mg/dl POC Ioniz Calcium Nicole 1.02 L (1.12-1.32) mmol/l Total Protein 5.8 L (6.0-8.3) gm/dl Albumin 2.9 L (3.4-5.0) gm/dl Crossmatch See Detail 07/28/25 07/28/25 07/28/25 Range/Units 01:31 05:53 06:18 WBC 17.80 H (4.8-10.8) K/ul RBC 3.65 L (4.70-6.10) M/uL Hgb 10.5 L 10.7 L (14.0-18.0) g/dL POC Hgb (14.0-18.0) g/dl Hct 32.8 L 32.5 L (42.0-52.0) % POC Hct (42-52) % RDW Std Deviation 51.4 H (36.4-46.3) fL RDW Coeff of Star 15.8 H (11.5-14.5) % Neut # (Auto) 13.83 H (1.40-6.50) K/uL Dundy # (Auto) 1.99 H (0.11-0.59) K/uL POC Potassium (3.3-5.0) mmol/L Potassium (3.5-5.1) mmol/L POC Chloride (101-112) mmol/L Chloride 113 H (98-107) mmol/L POC BUN (7-18) mg/dl BUN 78 H (6-23) mg/dl Creatinine (0.6-1.4) mg/dl POC Creatinine (0.6-1.3) mg/dl BUN/Creatinine Ratio 56.1 H (10-20) Glucose 176 H (70-99(Fasting)) mg/dl POC Glucose 167 H (70-99) mg/dl POC Glucose (other) (70-99) mg/dl Hemoglobin A1c 7.8 H (4.5-5.6) % Calcium 7.1 L (8.6-10.3) mg/dl POC Ioniz Calcium Nicole (1.12-1.32) mmol/l Total Protein (6.0-8.3) gm/dl Albumin (3.4-5.0) gm/dl Crossmatch 07/28/25 07/28/25 Range/Units 10:43 11:26 WBC (4.8-10.8) K/ul RBC (4.70-6.10) M/uL Hgb 10.7 L (14.0-18.0) g/dL POC Hgb (14.0-18.0) g/dl Hct 32.1 L (42.0-52.0) % POC Hct (42-52) % RDW Std Deviation (36.4-46.3) fL RDW Coeff of Star (11.5-14.5) % Neut # (Auto) (1.40-6.50) K/uL Dundy # (Auto) (0.11-0.59) K/uL POC Potassium (3.3-5.0) mmol/L Potassium (3.5-5.1) mmol/L POC Chloride (101-112) mmol/L Chloride (98-107) mmol/L POC BUN (7-18) mg/dl BUN (6-23) mg/dl Creatinine (0.6-1.4) mg/dl POC Creatinine (0.6-1.3) mg/dl BUN/Creatinine Ratio (10-20) Glucose (70-99(Fasting)) mg/dl POC Glucose 152 H (70-99) mg/dl POC Glucose (other) (70-99) mg/dl Hemoglobin A1c (4.5-5.6) % Calcium (8.6-10.3) mg/dl POC Ioniz Calcium Nicole (1.12-1.32) mmol/l Total Protein (6.0-8.3) gm/dl Albumin (3.4-5.0) gm/dl Crossmatch (1) GIB (gastrointestinal bleeding) GI bleed type/associated pathology: unspecified gastrointestinal hemorrhage t ype Qualified Code(s): K92.2 - Gastrointestinal hemorrhage, unspecified
[2025-07-28] MEDS: NICOTINE 14 MG/24 HR PATCH TD SCH (12:24)
--- NOTE | 2025-07-28 14:24 | XRay Report ---
Exam: AP Portable Chest Exam reason: Hypoxia Comparison: No prior examinations available for comparison Technique: A single AP portable view of the chest was obtained Findings: The lungs are well-expanded. There is mild coarsening of the pulmonary interstitial markings. The cardiac and mediastinal silhouettes are within normal limits. There is no pneumothorax and no acute bony abnormalities are seen. Impression: Coarsened appearance of the pulmonary interstitial markings. Differential considerations include interstitial pulmonary edema versus chronic fibrosing lung changes. Electronically signed by Humberto Strickland 07-28-2025 2:23 PM
[2025-07-28 18:13] LABS: Hematocrit (blood only) 32.5 % (42.0-52.0); Hemoglobin 10.8 g/dL (14.0-18.0)
--- NOTE | 2025-07-28 20:07 | Electrocardiogram Report ---
Test Reason : Blood Pressure : */* mmHG Vent. Rate : 101 BPM Atrial Rate : 101 BPM P-R Int : 154 ms QRS Dur : 122 ms QT Int : 380 ms P-R-T Axes : 63 262 54 degrees QTcB Int : 492 ms Sinus tachycardia with occasional Premature ventricular complexes Right bundle branch block Left anterior fascicular block Abnormal ECG When compared with ECG of 16-Sep-2024 12:22, in comparison with previous ekg, no change Confirmed by Mala Fox (Charlie) on 07/28/2025 8:06:46 PM Referred By: Miller SCI Confirmed By: Mala Fox
[2025-07-28] MEDS: ATORVASTATIN 40 MG TAB PO SCH (20:18)
[2025-07-28] MEDS: TAMSULOSIN HCL 0.4 MG CAP PO SCH (20:19)
[2025-07-28 23:50] LABS: Hematocrit (blood only) 29.5 % (42.0-52.0); Hemoglobin 9.8 g/dL (14.0-18.0)
[2025-07-29 07:26] LABS: Hematocrit (blood only) 30.3 % (42.0-52.0); Hemoglobin 10.1 g/dL (14.0-18.0); Mean Corpuscular Hemoglobin 29.8 pg (25.0-34.0); Mean Corpuscular Volume 89.4 fL (80.0-100.0); Platelet Count 169 K/uL (130-400); RDW Standard Deviation 53.4 fL (36.4-46.3); Red Blood Count 3.39 M/uL (4.70-6.10); White Blood Count 14.12 K/ul (4.8-10.8)
[2025-07-29 07:48] LABS: Anion Gap 1.0 (3-11); Blood Urea Nitrogen 40.0 mg/dl (6-23); Calcium 7.4 mg/dl (8.6-10.3); Carbon Dioxide 25.0 mmol/L (21-32); Chloride 114.0 mmol/L (98-107); Creatinine Clr Calc Pharmacy 42.3 ml/min; Glucose 126.0 mg/dl (70-99(Fasting)); Potassium 4.1 mmol/L (3.5-5.1); Sodium 140.0 mmol/L (136-145)
[2025-07-29] MEDS: REMOVE NICODERM PATCH SCH (07:58)
--- NOTE | 2025-07-29 09:29 | History & Physical Bridge Note ---
Date of Service July 29, 2025 History & Physical Bridge Note I have examined the patient, reviewed the History & Physical and in the interval since the performance of the History & Physical I have noted the following changes of clinical significance: no changes noted. H/H 10.10/04.3. He has been NPO since prior to midnight. Keep NPO and proceed with EGD with small bowel enteroscopy today.
--- NOTE | 2025-07-29 10:08 | Hospitalist Progress Note ---
Date of Service July 29, 2025 Assessment & Plan (1) GIB (gastrointestinal bleeding): Plan: 85-year-old male coming from halfway with past medical history significant for hypertension, hyperlipidemia, urinary retention and bilateral hydronephrosis on chronic Rascon catheter presents with black stools and Vomiting blood. Patient was here in September 2024 with blood per rectum. At that time his hemoglobin dropped to 5 range and received 3 months of PRBC. At that time EGD showed 1 oozing cratered ulcer with adherent clot in the jejunum which was treated with epinephrine and cauterization. Hi Upper GI bleed Hypotension improved with fluids Hemoglobin 12.5 on presentation S/p [address] scan shows duodenitis Hb is stable in 10s today GI eval noted Currently NPO for endoscopy today Continue to monitor Hb Recent hematuria resolved Patient was in the ER for hematuria on 07/26/25. Seems his Rascon was removed without completely deflation which caused the hematuria. ER discussed with urology and his catheter was changed to 20 Maltese and after that his bleeding stopped. His UA was positive and he was given a dose of Rocephin and discharged on Cipro. Patient confirmed the hematuria was due to rascon change. No other new urinary symptoms Antibioticcs discontinued LOGAN Also had hypotension which has resolved with IVF Holding lisinopril for now Cr was 1.77 on admission. 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 Sliding scale Will monitor History of urinary retention Bilateral hydronephrosis On chronic Rascon On Flomax and dutasteride Hyperlipidemia On statin DVT prophylaxis- SCDs Full code I spent a total of 45 minutes coordinating, documenting and providing care for this patient excluding time spent in performance of separately billed services Admission and Anticipated Discharge Date Admission Date: July 27, 2025 Subjective Patient seen and examined Had loose stool this AM with blood in it per RN Denied abd pain, nausea, vomiting, dizziness, SOB, chest pain Physical Exam Constitutional: + well hydrated; no acute distress Eyes: PERRL, conjunctivae normal, anicteric sclerae ENMT: external ear and nose normal, oropharynx normal Respiratory: normal respiratory effort, lungs clear to auscultation Cardiovascular: Rate/Rhythm: regular rate and regular rhythm Gastrointestinal (Abdomen): normal bowel sounds, soft, nontender, no hepatosplenomegaly Musculoskeletal: No pedal edema Neurologic: PERRL, EOMI, accommodation nl, no face palsy, no dysarthria Psychiatric: A+Ox3, euthymic affect Genitourinary: Rascon in situ Results & Data Results & Data Vital Signs (Past 12 Hours) Vital Signs Temp Pulse Pulse Resp BP Pulse Ox O2 Del Method 07/29/25 08:17 36.8 C 71 20 141/71 H 97 Room Air 07/29/25 07:50 Room Air 07/29/25 07:37 51 L 07/29/25 04:32 36.4 C L 61 17 118/66 96 Room Air 07/29/25 02:39 58 L 07/29/25 00:26 36.5 C 61 16 115/51 L 93 Room Air Laboratory Results Abnormal lab results 07/28/25 07/28/25 07/28/25 Range/Units 15:39 17:55 23:28 WBC (4.8-10.8) K/ul RBC (4.70-6.10) M/uL Hgb 10.8 L 9.8 L (14.0-18.0) g/dL Hct 32.5 L 29.5 L (42.0-52.0) % RDW Std Deviation (36.4-46.3) fL RDW Coeff of Star (11.5-14.5) % Chloride (98-107) mmol/L Anion Gap (3-11) BUN (6-23) mg/dl BUN/Creatinine Ratio (10-20) Glucose (70-99(Fasting)) mg/dl POC Glucose 160 H (70-99) mg/dl Calcium (8.6-10.3) mg/dl 07/29/25 07/29/25 07/29/25 Range/Units 07:12 11:34 12:07 WBC 14.12 H (4.8-10.8) K/ul RBC 3.39 L (4.70-6.10) M/uL Hgb 10.1 L 10.3 L (14.0-18.0) g/dL Hct 30.3 L 31.2 L (42.0-52.0) % RDW Std Deviation 53.4 H (36.4-46.3) fL RDW Coeff of Star 16.4 H (11.5-14.5) % Chloride 114 H (98-107) mmol/L Anion Gap 1 L (3-11) BUN 40 H D (6-23) mg/dl BUN/Creatinine Ratio 36.0 H (10-20) Glucose 126 H (70-99(Fasting)) mg/dl POC Glucose 146 H (70-99) mg/dl Calcium 7.4 L (8.6-10.3) mg/dl (1) GIB (gastrointestinal bleeding) GI bleed type/associated pathology: unspecified gastrointestinal hemorrhage type Qualified Code(s): K92.2 - Gastrointestinal hemorrhage, unspecified
--- NOTE | 2025-07-29 11:50 | Anesthesiology Consultation ---
Date of Service July 29, 2025 Assessment & Plan (1) GIB (gastrointestinal bleeding): (2) Melena: (3) Acute ulcer of stomach & intestines with bleeding/perforation: Chart Review Chart Review: Acceptable Risk for Surgery Consults Requested none ASA ASA3 Proposed Anesthesia Anesthesia Type: MAC Risk / Benefits Reviewed With: PT / POA / Parent / Guardian, Accepts Plan and Informed Consent Obtained History Surgery Operation Date: 07/29/25 16:30 Proposed Procedures p Small Bowel Enteroscopy Dr. Romero - Corey Romero MD Height/Weight Height: 5 ft 6 in Weight: 70.6 kg Allergies Allergy/AdvReac Type Severity Reaction Status Date / Time No Known Allergies Allergy Unverified 07/27/25 22:51 Medications Home Medications Medication Instructions Recorded Confirmed Last Taken atorvastatin 40 mg tablet 40 mg PO HS 12/06/18 07/27/25 Unknown tamsulosin 0.4 mg capsule 0.4 mg PO HS 12/06/18 07/27/25 Unknown dutasteride 0.5 mg capsule 0.5 mg PO DAILY #90 caps 07/08/23 07/27/25 07/27/25 (Avodart) lisinopril 20 mg tablet 20 mg PO DAILY 09/12/24 07/27/25 07/27/25 albuterol sulfate 90 mcg/actuation 2 puff inhalation QID PRN 07/27/25 07/27/25 Unknown aerosol inhaler Shortness Of Breath ciprofloxacin HCl 250 mg tablet 500 mg PO BID 07/27/25 07/27/25 07/27/25 glipizide 2.5 mg tablet 2.5 mg PO DAILY 07/27/25 07/27/25 07/27/25 Active Medications Generic Name Dose Route Start Last Admin Trade Name Freq PRN Reason Stop Dose Admin Atorvastatin Calcium 40 mg 07/28/25 21:00 07/28/25 20:18 Atorvastatin 40 Mg Tab PO 08/27/25 20:59 40 mg HS FATIMAH Administration Finasteride 5 mg 07/28/25 09:00 07/29/25 08:56 Finasteride 5 Mg Tab PO 08/27/25 08:59 Not Given DAILY FATIMAH Pantoprazole Sodium 40 mg/ 100 mls @ 20 mls/hr 07/27/25 21:45 07/29/25 07:57 Dextrose IV 08/26/25 21:44 8 mg/hr Q5H FATIMAH 20 mls/hr Administration 8 MG/HR Sodium Chloride 1,000 mls @ 100 mls/hr 07/28/25 01:10 07/29/25 05:55 Nss IV 07/31/25 01:09 100 mls/hr .Q10H FATIMAH Administration Insulin Aspart 0 units 07/28/25 11:30 07/29/25 11:59 Insulin Aspart Per Unit Charge SC 08/27/25 11:29 1 units ACHS FATIMAH Administration Miscellaneous 1 each 07/29/25 08:59 07/29/25 07:58 Remove Nicoderm Patch N/A 08/28/25 08:58 1 each DAILY@0859 FATIMAH Administration Nicotine 1 patch 07/28/25 11:30 07/29/25 07:57 Nicotine 14 Mg/24 Hr Patch TD 08/27/25 11:29 1 patch QAM FATIMAH Administration Tamsulosin HCl 0.4 mg 07/28/25 21:00 07/28/25 20:19 Tamsulosin Hcl 0.4 Mg Cap PO 08/27/25 20:59 0.4 mg HS FATIMAH Administration NPO Date Last Intake of Fluids: 07/28/25 Time Last Intake of Fluids: 23:59 Date Last Intake of Solids: 07/28/25 Past Medical History Medical History (Updated 07/29/25 @ 11:47 by Ginette Guajardo DO) HLD (hyperlipidemia) HTN (hypertension) Hydronephrosis Hyperglycemia History of peptic ulcer disease Pancreatic cyst Encounter for pre-operative examination Diverticular hemorrhage GI bleeding Stomach ulcer Diabetes no hematemesis x24hr Exercise / Class Metabolic Activity IV < 2 Limit ADL/Bedbound Past Family History Family History Other No significant family history Past Surgical History Surgical History (Updated 07/29/25 @ 11:48 by Ginette Guajardo DO) Hx of colonoscopy S/P rotator cuff repair Past Anesthesia History No Hx of Anesthesia Complications and No Family Hx of Anesthesia Complications History of PONV No Hx of PONV and No Hx of Motion Sickness Social History Smoking Status: Current every day smoker Do You Dip or Chew Tobacco: Yes Hx Alcohol Use: No Hx Substance Use: No substance use type: does not use Physical Exam Vital Signs Last Vital Signs Temp 36.8 C 07/29/25 11:37 Pulse 60 07/29/25 11:37 Resp 17 07/29/25 11:37 BP 112/68 07/29/25 11:37 Pulse Ox 96 07/29/25 11:37 O2 Del Method Room Air 07/29/25 11:37 O2 Flow Rate 2 07/28/25 09:00 ENMT Mouth: + dentition abnormality (15 total teeth remain) and + poor dentition; no TMJ abnormality Thyromental Distance: > or= 3.5 Finger Breadths Mallampati Class: II Neck normal visual inspection and trachea midline; neck extension not limited Respiratory normal respiratory effort Auscultation: lungs clear to auscultation bilaterally Cardiovascular Rate/Rhythm: regular rate and regular rhythm Heart Sounds: no murmur Musculoskeletal Spine: normal cervical ROM Extremities: full ROM of extremities Neurologic moves all extremities Psychiatric Orientation: alert and oriented x 3 Testing Laboratory Results 07/29/25 12:07 07/29/25 07:12 PT 11.8 Seconds (9.0-12.0) 07/27/25 21:37 INR 1.1 (0.9-1.1) 07/27/25 21:37 APTT 23 Seconds (21-31) 07/27/25 21:37 Hemoglobin A1c 7.8 % (4.5-5.6) H 07/28/25 06:18 Blood Type A Positive 07/27/25 21:38 Antibody Screen NEGATIVE 07/27/25 21:38 07/29/25 11:34 POC Glucose 146 H Electrocardiogram Date: 07/27/25 Findings: + NSR @ (101bpm), + LBBB and + RBBB (1) GIB (gastrointestinal bleeding) GI bleed type/associated pathology: unspecified gastrointestinal hemorrhage type Qualified Code(s): K92.2 - Gastrointestinal hemorrhage, unspecified
[2025-07-29 12:27] LABS: Hematocrit (blood only) 31.2 % (42.0-52.0); Hemoglobin 10.3 g/dL (14.0-18.0)
--- NOTE | 2025-07-29 14:34 | GI REPORT ---
[facility] Patient: VINI JAMES : 1940 Sex at : Male Age: 85 Years Procedure: Small bowel enteroscopy Date: 07/29/2025 Attending Physician: Corey Romero MD Referring MD: Miller Sanchez Indications: - Melena - Acute post hemorrhagic anemia Medications: - See the Anesthesia note for documentation of the administered medications Complications: - No immediate complications. Estimated Blood Loss: - Estimated blood loss was minimal. Procedure: - Prior to the procedure, a History and Physical was performed, and patient medications and allergies were reviewed. The patient's tolerance of previous anesthesia was also reviewed. The risks and benefits of the procedure and the sedation options and risks were discussed with the patient. All questions were answered, and informed consent was obtained. Prior Anticoagulants: The patient has taken no anticoagulant or antiplatelet agents. ASA Grade Assessment: III - A patient with severe systemic disease. After reviewing the risks and benefits, the patient was deemed in satisfactory condition to undergo the procedure. - The pediatric colonoscope was introduced through the mouth and advanced to the proximal jejunum. - The patient tolerated the procedure well. - The small bowel enteroscopy was accomplished without difficulty. Findings: - There was no evidence of significant pathology in the proximal jejunum. Area was tattooed with an injection of 3 mL of Yesika ink. Jejunum marked to delineate maximal extend of intubation. - Many non-bleeding superficial duodenal ulcers with were found in the fourth portion of the duodenum, in the third portion of the duodenum and in the area of the papilla. This was biopsied with a cold forceps. Multiple shallow duodenal ulcers distributed in a circumferential fashion are seen along the distal duodenum without active bleeding or high risk stigmata. More focal ulcers are seen near the periampullary diverticulum. - A diverticulum was found in the area of the papilla. - Diffuse mildly erythematous mucosa with bleeding on contact was found in the entire examined stomach. Biopsies were taken with a cold forceps for Helicobacter pylori testing. - LA Grade C (one or more mucosal breaks continuous between tops of 2 or more mucosal folds, less than 75% circumference) esophagitis with no bleeding was found 43 cm from the incisors. Impression: - The examined portion of the jejunum was normal. Tattooed. - Jejunum marked to delineate maximal extend of intubation. - Non-bleeding duodenal ulcers. Biopsied. - Multiple shallow duodenal ulcers distributed in a circumferential fashion are seen along the distal duodenum without active bleeding or high risk stigmata. More focal ulcers are seen near the periampullary diverticulum. - Duodenal diverticulum. - Erythematous mucosa in the stomach. Biopsied. - LA Grade C reflux esophagitis with no bleeding. Recommendation: - Return patient to [facility] for [facility] care. - Await pathology results. - High dose PPI recommended indefinitely (Protonix 40mg PO bid) - Strictly avoid all NSAIDs - Carafate 1 g 4 times daily - Will check a.m. gastrin level to assess for possible Fely-Salazar syndrome. Procedure Code(s): - 33363, Small intestinal endoscopy, enteroscopy beyond second portion of duodenum, not including ileum; with biopsy, single or multiple - 64318, Unlisted procedure, small intestine Diagnosis Code(s): - K92.1, Melena (includes Hematochezia) - D62, Acute posthemorrhagic anemia - K26.9, Duodenal ulcer, unspecified as acute or chronic, without hemorrhage or perforation - K57.10, Diverticulosis of small intestine without perforation or abscess without bleeding - K31.89, Other diseases of stomach and duodenum - K21.00, Gastro-esophageal reflux disease with esophagitis, without bleeding CPT(R) - 2023 copyright [employer]. All Rights Reserved. The CPT codes, CCI edits and ICD codes generated are intended as suggestions and were generated based on input data. These codes are preliminary and upon library associate review may be revised to meet current compliance and payer requirements. The provider is responsible for the final determination of appropriate codes, and modifiers. Corey Romero MD This document has been electronically signed. Note Initiated:07/29/2025 Note Completed:07/29/2025 2:34 PM [id number]
--- NOTE | 2025-07-29 14:36 | Anesthesiology Progress Note ---
Date of Service July 29, 2025 Anesthesia Post Procedure Vital Signs Vital Signs: Temp Pulse Pulse Resp BP BP Pulse Ox 07/29/25 14:34 83 15 110/59 L 96 07/29/25 14:19 98 H 12 82/47 L 94 07/29/25 13:23 36.6 C 82 19 140/73 96 07/29/25 11:37 36.8 C 60 17 112/68 96 07/29/25 08:17 36.8 C 71 20 141/71 H 97 07/29/25 07:50 07/29/25 07:37 51 L 07/29/25 04:32 36.4 C L 61 17 118/66 96 07/29/25 02:39 58 L 07/29/25 00:26 36.5 C 61 16 115/51 L 93 07/28/25 20:58 07/28/25 20:53 36.7 C 56 L 17 143/69 H 97 07/28/25 15:40 36.8 C 58 L 22 132/64 95 O2 Del Method 07/29/25 14:34 Room Air 07/29/25 14:19 Room Air 07/29/25 13:23 Room Air 07/29/25 11:37 Room Air 07/29/25 08:17 Room Air 07/29/25 07:50 Room Air 07/29/25 07:37 07/29/25 04:32 Room Air 07/29/25 02:39 07/29/25 00:26 Room Air 07/28/25 20:58 Room Air 07/28/25 20:53 Room Air 07/28/25 15:40 Oxymask Transfer of Care Handoff Completed per policy Notes Mental Status: alert / awake / arousable Patient Amnestic to Procedure: Yes Nausea / Vomiting: adequately controlled Pain: adequately controlled Airway Patency, RR, SpO2: stable & adequate BP & HR: stable & adequate Hydration State: stable & adequate Anesthetic Complications: no major complications apparent and Pt Satisfied with anesthetic care
[2025-07-29] MEDS: PROPOFOL IV EMULSION 10 MG/ML 20 ML VIAL IV ONE (15:26)
[2025-07-29] MEDS: ESMOLOL HCL INJ 10 MG/ML 10ML VIAL IV ONE (15:26)
[2025-07-29] MEDS: ENDOSCOPIC MARKER 5 ML SYR TOP ONE (15:26)
[2025-07-29] MEDS: LIDOCAINE 2% 2 ML VIAL/AMP(20MG/ML) INFIL ONE (15:26)
[2025-07-29] MEDS: SUCRALFATE 1 GM TAB PO SCH (16:23)
[2025-07-29 17:59] LABS: Hematocrit (blood only) 31.8 % (42.0-52.0); Hemoglobin 10.4 g/dL (14.0-18.0)
[2025-07-29] MEDS: PANTOprazole 40 MG/10 ML SYR IV SCH (21:37)
[2025-07-30 01:07] LABS: Hematocrit (blood only) 28.0 % (42.0-52.0); Hemoglobin 9.2 g/dL (14.0-18.0)
[2025-07-30] MEDS: MELATONIN 3 MG TAB PO PRN (02:36)
[2025-07-30 06:32] LABS: Hematocrit (blood only) 28.5 % (42.0-52.0); Hemoglobin 9.5 g/dL (14.0-18.0); Mean Corpuscular Hemoglobin 29.6 pg (25.0-34.0); Mean Corpuscular Volume 88.8 fL (80.0-100.0); Platelet Count 170 K/uL (130-400); RDW Standard Deviation 50.4 fL (36.4-46.3); Red Blood Count 3.21 M/uL (4.70-6.10); White Blood Count 12.35 K/ul (4.8-10.8)
[2025-07-30 07:04] LABS: Anion Gap 4.0 (3-11); Blood Urea Nitrogen 22.0 mg/dl (6-23); Calcium 7.3 mg/dl (8.6-10.3); Carbon Dioxide 22.0 mmol/L (21-32); Chloride 113.0 mmol/L (98-107); Creatinine Clr Calc Pharmacy 54.6 ml/min; Glucose 106.0 mg/dl (70-99(Fasting)); Potassium 3.9 mmol/L (3.5-5.1); Sodium 139.0 mmol/L (136-145)
[2025-07-30 08:39] VITALS: O2SAT 96
[2025-07-30] MEDS ORDERED: SUCRALFATE 1 GM TAB PO SCH ×2 (10:15→13:00)
--- NOTE | 2025-07-30 10:16 | Discharge Summary ---
Date of Service July 30, 2025 Admission HPI Per Admitting Provider 85-year-old male coming from [facility] with past medical history significant for hypertension, hyperlipidemia, urinary retention and bilateral hydronephrosis on chronic Rascon catheter presents with black stools and Vomiting blood. Yesterday patient was in the ER for hematuria. Seems his Rascon was removed without completely deflation which caused the hematuria. ER discussed with urology and his catheter was changed to 20 Ukrainian and after that his bleeding stopped. His UA was positive and he was given a dose of Rocephin and discharged on Cipro. Today patient started to have some abdominal discomfort. And had some black stools. And also was vomiting blood. And was brought to the hospital. His blood pressure was soft. After fluids blood pressure improved. He is getting unit of PRBC now. ER notified GI. Patient is on Protonix drip. Denies any dizziness. Denies headache. Has some runny nose and cough which is usual for him. No fevers. Denies any chest pain. Has his usual shortness of breath. States his Rascon catheter is working okay. Says he can ambulate some distance with cane. Afebrile. Patient was here in September 2024 with blood per rectum. At that time his hemoglobin dropped to 5 range and received 3 months of PRBC. At that time EGD showed 1 oozing cratered ulcer with adherent clot in the jejunum which was treated with epinephrine and cauterization. His hemoglobin remained stable and was discharged back. At the time he was noted to have hyperkalemia treated with calcium gluconate and dextrose and IV insulin. Past medical history. As mentioned above. Past surgical history. Says he had right shoulder surgery. Social history. Smokes 1 cigarettes daily. Denies alcohol. Denies drug use. Family history. No significant family history. Admission Exam Per Admitting Provider General- Not in acute distress Head- atraumatic Eyes- PERRL. ENT- oropharynx dry blood seen Neck- supple, no JVD. Lungs- clear to auscultation no wheezing or crackles Heart- regular rhythm; no murmur, no gallop. Abdomen- normal bowel sounds, soft, nontender, no distension Extremities- no pretibial edema, no erythema seen Neuro- alert, oriented PERRL, no facial palsy; no dysarthria; moves extremities Principal Diagnosis Acute GI bleed Acute kidney injury Discharge Exam Constitutional + well hydrated; no acute distress Eyes PERRL, conjunctivae normal, anicteric sclerae ENMT external ear and nose normal, oropharynx normal Respiratory normal respiratory effort, lungs clear to auscultation Cardiovascular Rate/Rhythm: regular rate and regular rhythm Gastrointestinal (Abdomen) normal bowel sounds, soft, nontender, no hepatosplenomegaly Neurologic PERRL, EOMI, accommodation nl, no face palsy, no dysarthria Psychiatric A+Ox3, euthymic affect Genitourinary Rascon in situ Discharge Data Allergies Allergy/AdvReac Type Severity Reaction Status Date / Time No Known Allergies Allergy Unverified 07/27/25 22:51 Consultations 07/27/25 22:23 Consult Gastroenterology Stat ED Decision to Admit Stat Procedures Performed Operation Date: 07/29/25 16:30 Actual Procedures p Small Bowel Enteroscopy BX/CYT - Corey Romero MD Ordered Studies 07/27/25 21:29 CT abd pelvis IV con only Stat Hospital Course (1) GIB (gastrointestinal bleeding): 85-year-old male coming from [facility] with past medical history significant for hypertension, hyperlipidemia, urinary retention and bilateral hydronephrosis on chronic Rascon catheter presents with black stools and Vomiting blood. Patient was here in September 2024 with blood per rectum. At that time his hemoglobin dropped to 5 range and received 3 months of PRBC. At that time EGD showed 1 oozing cratered ulcer with adherent clot in the jejunum which was treated with epinephrine and cauterization. Upper GI bleed Duodenal ulcers Hypotension improved with fluids Hemoglobin 12.5 on presentation S/p [address] scan showed duodenitis S/p Small bowel enteroscopy on 07/29/25 which showed non-bleeding duodenal ulcers which were biopsied, multiple shallow duodenal ulcers distributed in a circumferential fashion are seen along the distal duodenum without active bleeding of high risk stigmata. 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 Seems his Rascon was removed without completely deflation which caused the hematuria. ER discussed with urology and his catheter was changed to 20 Ukrainian and after that his bleeding stopped. His UA was positive and he was given a dose of Rocephin and discharged on Cipro. Patient confirmed the hematuria was due to rascon change. No other new urinary symptoms LOGAN Also had hypotension which has resolved with IVF Cr was 1.77 on admission. Improved to 0.86 today Lisinopril stopped due to low normal BP Pancreatic cyst On CT scan Hypertension Lisinopril stopped for hypotension and LOGAN Normotensive now though SBP in 100s Diabetes Continue [employer] glipizide History of urinary retention Bilateral hydronephrosis On chronic Rascon On Flomax and dutasteride Hyperlipidemia On statin I called [facility] and [facility] with [facility]. She requested we provide patient with one day supply of new meds on discharge as they will get their supply tomorrow. Talked with pharm who arranged one day homepack for Protonix and Carafate Total Time Total Time Spent Total Time Spent (In Minutes): 45 Total Time Includes: Examination of the Patient, Discharge Planning, Medication Reconciliation, Communication With Other Providers and Other Discharge Plan Discharge Items [facility] Disposition: [facility] Reason For Visit: ACUTE GI BLEED Discharge Diagnosis: Acute GI bleed Acute kidney injury Condition on Discharge: Good Activity: Resume your previous activity Non-emergency contact: Primary Care Provider Call non-emergency contact if: you have any medication questions Follow-up/Referrals: Miller BOOTH [Primary Care Provider] - Diet: Carb Consistent or DM2 and Heart Healthy Addtl Attending Provider Instructions: Mr Tavera You were hospitalized and managed for the above listed diagnoses. You had endoscopy which showed duodenal ulcers and reflux esophagitis. You are being discharged on Pantoprazole 40mg twice a day indefinitely. You were also started on Carafate 1g four times a day. Please avoid all NSAIDS such as ibuprofen, naproxen etc. Your lisinopril was stopped for now due to low blood pressure. It was a pleasure taking care of you. Pending Studies at Discharge: Yes (Pathology from biopsy) Stand-Alone Forms: My [facility] Skilled Items Patient informed of condition?: Yes Discharge Level of Care: Other Communicable Disease: No Discharge Prognosis: Stable Lines: None Urinary Catheter: Yes Medications and DC Order Prescriptions: New sucralfate 1 gram Tablet 1 g PO QID 30 Days Qty: 120 0RF pantoprazole 40 mg tablet,delayed release (DR/EC) 40 mg PO BID Qty: 60 0RF Continued dutasteride [Avodart] 0.5 mg capsule 0.5 mg PO DAILY Qty: 90 3RF atorvastatin 40 mg Tablet 40 mg PO HS tamsulosin 0.4 mg Capsule 0.4 mg PO HS albuterol sulfate 90 mcg/actuation Hfa Aerosol Inhaler 2 puff INHALATION QID PRN (Reason: Shortness Of Breath) glipizide 2.5 mg Tablet 2.5 mg PO DAILY Discontinued lisinopril 20 mg Tablet 20 mg PO DAILY ciprofloxacin HCl 250 mg Tablet 500 mg PO BID Rx Instructions: start 07/26/25 stop date 08/05/25 Discharge Orders: Discharge Order (Routine); Ordered 07/30/25 Ordered By: Anel Estrada/Other Patient Handouts: Pantoprazole Delayed Release Oral Tablet, Sucralfate Oral Tablet, Managing Type 2 Diabetes Admission Data Admit Date/Time: 07/27/25 23:45 Attending Provider: Anel Chase I. Admit Provider: Minh Andersen Primary Care Provider: Miller BOOTH Other Providers: Corey Romero; Minh Andersen Other Interventions: Discharge Summary Assessment (RN) Last Done: 07/30/25 11:14
[2025-07-30] MEDS: Nursing to Pharmacy Communication SCH (10:52)
[2025-07-30 11:22] VITALS: BP 110/62; PULSE 64; RESP 22; TEMP 98.6
== END 2025-07-30 12:18 | DRG 378 ==
LOC: EDSEX → ED 21:23 → 2E 23:45